=== PATIENT | female | born 1945 | race Hispanic/Latino ===

== ENCOUNTER 2017-09-10 19:56 | Emergency (ER) | payer OTHER, MEDICARE ==
[2017-09-10 20:23] LABS: Bilirubin Negative (Negative); Blood, Urine Small (Negative); Clarity Cloudy (Clear); Glucose, Urine (Dipstick) Negative (Negative); Leukocyte Moderate (Negative); Nitrite Positive (Negative); Protein, Urine (Dipstick) 30 mg/dL (Neg-Trace); Urobilinogen 0.2 mg/dL (0.2-1.0)
[2017-09-10 20:26] LABS: Bacteria/HPF 3+ HPF (None Seen); Squamous Epithelial 0-3 HPF (0-3)
[2017-09-10] MEDS ORDERED: Acetaminophen 325 MG TAB ONE (21:10)
[2017-09-10 21:26] LABS: ALT (SGPT) 13 U/L (8-55); AST (SGOT) 16 U/L (5-34); Albumin 3.7 g/dL (3.4-4.8); Alkaline Phosphatase 78 U/L (40-150); Anion Gap 15 mmol/L (10-20); BUN (Urea Nitrogen) 18 mg/dL (9.8-20.1); Bilirubin, Total 0.7 mg/dL (0.2-1.2); Calc. Creatinine Clearance 0 mL/min (70-130); Calcium 9.6 mg/dL (7.8-10.44); Carbon Dioxide 22 mmol/L (23-31); Chloride 105 mmol/L (98-107); Estimated GFR-MDRD 39; Globulin 3.8 g/dL (2.4-3.5); Glucose 116 mg/dL (83-110); Potassium 3.5 mmol/L (3.5-5.1); Protein, Total 7.5 g/dL (6.0-8.3); Sodium 138 mmol/L (136-145)
--- NOTE | 2017-09-10 21:27 | RAD ---
PA AND LATERAL VIEWS CHEST: 09/10/17 HISTORY: Cough, fever, generalized weakness. FINDINGS: The heart is enlarged. The lungs are well expanded with mild pulmonary vascular congestion. No pneumo thoraces or large effusions are seen. IMPRESSION: Findings are suspicious for mild CHF. POS: [facility]
[2017-09-10 21:32] LABS: Band 6 % (5-11); Hemoglobin 9.9 g/dL (12.0-16.0); Lymphocytes 13 % (21-51); MDiff Complete? YES; Mean Corpuscular HGB CONC 33.2 g/dL (32.0-36.0); Mean Corpuscular Hemoglobin 26.7 pg (27.0-31.0); Mean Corpuscular Volume 80.5 fL (78.0-98.0); Monocytes 5 % (0-10); Neutrophil 76 % (42-75); PLT Morphology Comment Appears Adequate; Platelet Clumps MARKED; Platelet Count 191 thou/uL (130-400); RBC Distribution Width 12.9 % (11.5-14.5); Red Blood Cell (RBC) Count 3.69 mill/uL (4.20-5.40); White Blood Cell (WBC) Count 10.8 thou/uL (4.8-10.8)
[2017-09-10] MEDS ORDERED: Sodium Chloride 0.9% 100 ML ONE (22:03)
[2017-09-10] MEDS ORDERED: cefTRIAXone\\ROCEPHIN 2 GM VIAL ONE (22:03)
== END 2017-09-10 23:05 | disposition home or self-care (01) ==
LOC: SCSER 19:56
DX: N39.0 Urinary tract infection, site not specified (principal); D64.9 Anemia, unspecified; J30.2 Other seasonal allergic rhinitis; I10 Essential (primary) hypertension; F41.9 Anxiety disorder, unspecified; Z79.899 Other long term (current) drug therapy; Z79.891 Long term (current) use of opiate analgesic
CPT/HCPCS: 36415; 71046; 80053; 81003; 81015; 83605; 85025; 87040; 87077; 87086; 87149; 87186; 96361; 96365; J0696; J7050

== ENCOUNTER 2018-10-05 08:31 | Outpatient (CLI) | payer OTHER, MEDICARE ==
--- NOTE | 2018-10-05 10:55 | CT ---
ABDOMEN AND PELVIC CT SCAN WITH AND WITHOUT IV CONTRAST: HISTORY: Hematuria, prior hysterectomy, the patient indicates her bladder has fallen. FINDINGS: The lung bases are clear. Minimal nonspecific pleural-based parenchymal changes in the right base. Liver, gallbladder, pancreas, spleen, and adrenal glands are unremarkable. There are bilateral renal parapelvic cysts. No evidence for a solid enhancing mass. No renal calculus or acute obstructio n. No CT evidence for acute appendicitis. Sigmoid colon diverticulosis without acute diverticulitis . Somewhat low-lying urinary bladder. IMPRESSION: Bilateral renal parapelvic cysts. No renal calculus or obstruction. Other findings as above. POS: [facility]
== END 2018-10-05 08:32 | disposition home or self-care (01) ==
LOC: BICCT 08:31
PROVIDERS: ATTEND Urology
DX: N39.0 Urinary tract infection, site not specified (principal); R31.29 Other microscopic hematuria; N28.1 Cyst of kidney, acquired; K57.30 Diverticulosis of large intestine without perforation or abscess without bleeding; N32.89 Other specified disorders of bladder
CPT/HCPCS: 36415; 74178; 80048; 81001; 82565; 87086

== ENCOUNTER 2019-08-17 06:35 | Outpatient (CLI) | payer OTHER, MEDICARE ==
[2019-08-17 14:17] LABS: Hemoglobin 11.3 g/dL (12.0-16.0); Mean Corpuscular HGB CONC 31.8 g/dL (32.0-36.0); Mean Corpuscular Volume 84.8 fL (78.0-98.0); Mean Platelet Volume 9.2 fL (7.4-10.4); Platelet Count 149 thou/uL (130-400); RBC Distribution Width 14.4 % (11.5-14.5); Red Blood Cell (RBC) Count 4.18 mill/uL (4.20-5.40); White Blood Cell (WBC) Count 3.6 thou/uL (4.8-10.8)
[2019-08-17 14:20] LABS: Anion Gap 13 mmol/L (10-20); BUN (Urea Nitrogen) 20 mg/dL (9.8-20.1); Calc. Creatinine Clearance 0 mL/min (70-130); Carbon Dioxide 23 mmol/L (23-31); Chloride 108 mmol/L (98-107); Estimated GFR-MDRD 36; Glucose 91 mg/dL (83-110); Potassium 3.5 mmol/L (3.5-5.1); Sodium 140 mmol/L (136-145)
[2019-08-17 14:25] LABS: Calcium 12.2 mg/dL (7.8-10.44)
[2019-08-17 14:26] LABS: Band 20 % (5-11); Lymphocytes 14 % (21-51); MDiff Complete? YES; Monocytes 6 % (0-10); Neutrophil 59 % (42-75); Platelet Morphology Comment Appears Adequate; Polychromasia SLIGHT = 2-3 cells (100X) (0-2/hpf)
--- NOTE | 2019-08-17 15:46 | RAD ---
FRONTAL AND LATERAL IMAGING OF THE CHEST: 08/17/19 COMPARISON: 06/05/19. HISTORY: Preoperative patient. FINDINGS: Stable hilar prominence noted on the left. There is stable increased linear interstitial density bila terally. There is elevation of the left hemidiaphragm. No lobar consolidation or alveolar edema. Mild nonspecific asymmetric increased linear density noted in the inferior lateral aspect of the left low er lobe. IMPRESSION: No significant interval change. No lobar consolidation, or alveolar edema. Linear density in the left base noted which could represent scar or volume loss versus mild infiltrate. The chest is better ass essed on recent PET scan performed 08/09/19. POS: [facility]
[2019-08-18 17:20] LABS: SARS-CoV-2 MS2 Positive; SARS-CoV-2 N Gene Negative; SARS-CoV-2 S Gene Negative; SARS-CoV-2 orf1ab Negative
== END 2019-08-17 06:36 | disposition home or self-care (01) ==
LOC: LABBT 06:35
PROVIDERS: ATTEND Specialist
DX: Z01.818 Encounter for other preprocedural examination (principal); Z11.59 Encounter for screening for other viral diseases; C85.11 Unspecified B-cell lymphoma, lymph nodes of head, face, and neck
CPT/HCPCS: 71046; 80048; 85025; 87635; U0003

== ENCOUNTER 2019-08-20 10:25 | Day surgery (SDC) | payer OTHER, MEDICARE ==
[2019-08-17 11:52] VITALS: BMI 24.9
[2019-08-20] MEDS ORDERED: Bupivacaine 0.25% HCL 30 ML VIAL ONE ×2 (11:51→13:05)
[2019-08-20] MEDS ORDERED: Lidocaine 1% w/Epinephrine 1:100K 20 ML VIAL ONE ×2 (11:51→13:05)
[2019-08-20] MEDS ORDERED: Lidocaine 1% PF 5 ML VIAL ONE (12:15)
[2019-08-20] MEDS ORDERED: EPHEDRINE 25 MG/5 ML SYRINGE ONE (12:15)
[2019-08-20] MEDS ORDERED: PHENYLEPHRINE-NS 100 MCG/ML 10 ML SYRINGE ONE (12:15)
[2019-08-20] MEDS ORDERED: PROPOFOL 200 MG/20 ML VIAL ONE (12:16)
[2019-08-20] MEDS ORDERED: Fentanyl 100 MCG/2 ML VIAL ONE (12:56)
[2019-08-20] MEDS ORDERED: PROPOFOL 0 ML ONE (12:56)
--- NOTE | 2019-08-20 14:20 | RAD ---
PORTABLE CHEST 1 VIEW: Date: 08/20/2019 Time: 1333 hours HISTORY: MediPort placement. COMPARISON: 08/17/2019. FINDINGS: Interval placement of right-sided Port-A-Cath is seen with tip in the projection of SVC. No pneumotho rax seen. There is continued elevation of the left hemidiaphragm. The heart size is stable. POS: [facility]
--- NOTE | 2019-08-21 10:57 | OP ---
DATE OF PROCEDURE: 08/20/2019 PREOPERATIVE DIAGNOSIS: Lymphoma. POSTOPERATIVE DIAGNOSIS: Lymphoma. PROCEDURE PERFORMED: Placement of right subclavian standard-sized power compatible MediPort. ANESTHESIA: Total intravenous anesthesia with local using a mixture of 1% lidocaine with epinephrine and 0.25% Marcaine. INDICATIONS: The patient is a 73-year-old female, who is referred for MediPort placement for chemotherapy administration. She has diffuse lymphoma. DESCRIPTION OF OPERATION: Informed consent was obtained. The patient was taken to the operating room where total intravenous anesthesia was obtained with the patient in supine position. Right periclavicular area was prepped with ChloraPrep and draped in sterile fashion. Local anesthetic was infiltrated and a large-gauge needle was passed under the clavicle in the subclavian vein. Guidewire was passed through the needle and fluoroscopically confirmed to enter the superior vena cava. Additional local anesthetic was infiltrated and transverse incision was created based on needle insertion site. A subcutaneous pocket was dissected inferiorly. Introducer dilator was passed over the guidewire under fluoroscopic guidance. The guidewire and dilator were removed, and the catheter was passed through the introducer. The tip of the catheter was positioned at the atriocaval junction and the catheter was trimmed to the appropriate length and secured to the locking hub of the MediPort. The port was then placed in the subcutaneous pocket where it was secured to the pectoral fascia with 2 interrupted sutures of 3-0 Prolene. The incision was then closed in layers with 3-0 and 4-0 Monocryl. Additional local anesthetic was infiltrated. The port was cannulated with a Mooney needle and it aspirated blood freely and was flushed with heparinized saline. Dermabond was placed externally on the skin incision. There were no complications. Blood loss was negligible. The patient tolerated the procedure well and was taken to recovery room in stable condition. FINDINGS: I placed a standard size power compatible MediPort in the right subclavian vein uneventfully. The port site was chosen secondary to her body habitus. There were no complications and essentially no blood loss. Fluoroscopy was used throughout the procedure. The patient tolerated the procedure well and was taken to recovery room in stable condition. Job ID: [id number]
== END 2019-08-20 15:02 | disposition home or self-care (01) ==
LOC: SDC 10:25
PROVIDERS: ATTEND Specialist
PROC: B518ZZA Fluoroscopy of Superior Vena Cava, Guidance (ICD-10-PCS; principal; 2019-08-20)
PROC: 02HV33Z Insertion of Infusion Device into Superior Vena Cava, Percutaneous Approach (ICD-10-PCS; principal; 2019-08-20)
PROC: 0JH60WZ Insertion of Totally Implantable Vascular Access Device into Chest Subcutaneous Tissue and Fascia, Open Approach (ICD-10-PCS; principal; 2019-08-20)
DX: C85.11 Unspecified B-cell lymphoma, lymph nodes of head, face, and neck (principal); I10 Essential (primary) hypertension; Z79.899 Other long term (current) drug therapy
CPT/HCPCS: 36416; 71045; C1788; J0690; J1642; J2001; J2704; J3010; S0020

== ENCOUNTER 2019-08-31 12:16 | Inpatient (IN) | payer OTHER, MEDICARE ==
[2019-08-31 13:46] VITALS: BMI 24.3
[2019-08-31] MEDS ORDERED: Ondansetron ODT 8 MG TAB PO PRN (15:09)
[2019-08-31] MEDS ORDERED: Acetaminophen 325 MG TAB PO PRN (15:34)
[2019-08-31] MEDS ORDERED: Loratadine 10 MG TAB PO PRN (15:45)
[2019-08-31 15:52] LABS: Mean Corpuscular HGB CONC 33.6 g/dL (32.0-36.0); Mean Corpuscular Hemoglobin 27.8 pg (27.0-31.0); Mean Corpuscular Volume 82.8 fL (78.0-98.0); Mean Platelet Volume 10.2 fL (7.4-10.4); Platelet Count 39 thou/uL (130-400); RBC Distribution Width 14.2 % (11.5-14.5); White Blood Cell (WBC) Count 0.1 thou/uL (4.8-10.8)
[2019-08-31 15:53] LABS: Prothrombin Time 22.9 sec (12.0-14.7)
[2019-08-31 16:06] LABS: Calcium 8.3 mg/dL (7.8-10.44)
[2019-08-31 16:09] LABS: ALT (SGPT) 43 U/L (8-55); AST (SGOT) 25 U/L (5-34); Albumin 2.9 g/dL (3.4-4.8); Alkaline Phosphatase 72 U/L (40-110); Anion Gap 8 mmol/L (10-20); BUN (Urea Nitrogen) 13 mg/dL (9.8-20.1); Calc. Creatinine Clearance 63 mL/min (70-130); Calcium 8.3 mg/dL (7.8-10.44); Carbon Dioxide 28 mmol/L (23-31); Chloride 104 mmol/L (98-107); Estimated GFR-MDRD 70; Globulin 2.7 g/dL (2.4-3.5); Glucose 118 mg/dL (83-110); Potassium 3.2 mmol/L (3.5-5.1); Protein, Total 5.6 g/dL (6.0-8.3); Sodium 137 mmol/L (136-145); Uric Acid 3.4 mg/dL (2.6-6.0)
[2019-08-31 16:11] LABS: MDiff Complete? YES; Ovalocytes SLIGHT = 2-5 cells (100X) (0-1/hpf); Platelet Morphology Comment Appears Decreased; Polychromasia SLIGHT = 2-3 cells (100X) (0-2/hpf)
--- NOTE | 2019-08-31 16:12 | PDOC.HHP ---
Hospitalist HPI - History of Present Illness fever and neutropenia in clinic History of Present Illness: Ms. 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 Received chemotherapy this past Tuesday. Had fevers over the weekend, came to clinic, and reportedy had UA consistent with UTI. Started on Cipro and completed three days. Followed up in clinic this morning, was found to be neutropenic and 100.8F so was directly admitted. On encounter, laying comfortably in bed and complains of abdominal pain that she thinks is because of antibiotics. Also endorses ulceration in mouth. Denies neck stiffness, headache, dysphagia, odynophagia, ocular drainage, rhinorrhea, facial pain, chest pain, pleuritic pain, cough, diarrhea, dysuria, hematuria. Hospitalist ROS - Review of Systems Constitutional: reports: weakness, malaise. denies: fever, chills, sweats Eyes: denies: pain, conjunctivae inflammation, eyelid inflammation, redness ENT: denies: ear pain, ear discharge, nose pain, nose discharge, nose congestion , mouth pain, mouth swelling, throat pain, throat swelling Respiratory: denies: cough, shortness of breath, pleuritic pain Cardiovascular: denies: chest pain, palpitations Gastrointestinal: reports: nausea, abdominal pain. denies: vomiting, diarrhea, melena, hematochezia Genitourinary: denies: dysuria, frequency, incontinence, hematuria Skin: denies: rash, lesions Hospitalist History - Past Medical History Source: patient, family Cardiac: reports: no pertinent history Pulmonary: reports: hypertension CHAIN SPLITTER: reports: no pertinent history Gastrointestinal: reports: no pertinent history Heme/Onc: reports: no pertinent history Hepatobiliary: reports: no pertinent history Psych: reports: no pertinent history Infectious Disease: reports: Other (recurrent UTIs) ENT: reports: no pertinent history Renal/: reports: UTI - Past Surgical History Past Surgical History: reports: Cystoscopy, Hysterectomy - Family History Family History: reports: no pertinent history - Social History Smoking Status: Never smoker Alcohol: reports: None Drugs: reports: none Living Situation: With Family Domestic Violence: Negative Activity level: independent ambulation - Exam General Appearance: NAD, awake alert Eye: PERRL, anicteric sclera ENT - other findings: mulitple oral ulcerations Neck: no JVD Heart: no murmur, no gallops Heart - other findings: regular rhythm, tachycardic; mediport right side thorax , noninfected Respiratory: CTAB, no wheezes, no rales, no ronchi Gastrointestinal: soft, non-tender, non-distended, normal bowel sounds Extremities: no edema Neurological: cranial nerve grossly intact, normal sensation to touch, no weakness, no focal deficits, no new deficit Psychiatric: normal affect, normal behavior, A&O x 3 Hospitalist Results - Labs Result Diagrams: 08/31/19 15:38 08/31/19 15:38 Lab results: WBC 0.1 thou/uL (4.8-10.8) L* 08/31/19 15:38 Hgb 10.0 g/dL (12.0-16.0) L 08/31/19 15:38 Hct 29.8 % (36.0-47.0) L 08/31/19 15:38 MCV 82.8 fL (78.0-98.0) 08/31/19 15:38 Plt Count 39 thou/uL (130-400) L 08/31/19 15:38 Hospitalist H&P A/P - Problem (1) Neutropenic fever Code(s): D70.9 - NEUTROPENIA, UNSPECIFIED; R50.81 - FEVER PRESENTING WITH CONDITIONS CLASSIFIED ELSEWHERE Status: Acute (2) 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 Code(s): C83.31 - DIFFUSE LARGE B-CELL LYMPHOMA, NODES OF HEAD, FACE, AND NECK Status: Acute - Plan Plan: #neutropenic fever #mucositis -patient recently diagnosed with large B cell lymphoma -chemotherapy this past tuesday cytoxan, vincristine, adramycin, vatuxin -Tmax 100.8, given cefepime x 1 in clinic -recent urinalysis in clinic c/w UTI, completed cipro prior to presentation -lymphoma can cause fever, lymphoma lysis can cause fever, treatment with abovementioned can cause fever and mucositis associated with fever -mediport noninfected; no symtpoms of infection -neutorpenic isolation -continue cefepime -urinalysis considering recent reported UTI and history of recurrent UTIs -procalcitonin #HTN -continue home regimen -IV antiHTN PRN #history of DVT -continue warfarin Disposition/PPx full code. GI PPx: no indicated DVT PPx: lovenox
[2019-08-31 16:13] LABS: Phosphorus 1.4 mg/dL (2.3-4.7)
[2019-08-31] MEDS ORDERED: Potassium Phosphate 30 MMOL in Sodium Chloride 0.9% 500 ML IVPB SCH (16:30)
[2019-08-31] MEDS ORDERED: Potassium Chloride 40 MEQ in Sodium Chloride 0.9% 250 ML 250 ML IVPB SCH ×3 (16:30→23:00)
[2019-08-31] MEDS: Sodium Chloride 0.9% 1,000 ML IV SCH (16:43)
[2019-08-31] MEDS ORDERED: hydrALAZINE 20 MG/ML VIAL SLOW IVP PRN (16:52)
[2019-08-31] MEDS ORDERED: Labetalol HCl 100 MG/20 ML VIAL SLOW IVP PRN (16:52)
[2019-08-31] MEDS ORDERED: Warfarin Sodium 2.5 MG TAB PO SCH (17:00)
[2019-08-31] MEDS: Acetaminophen 325 MG TAB PO PRN (17:03)
[2019-08-31 20:13] LABS: Bilirubin Negative (Negative); Blood, Urine Trace (Negative); Clarity Clear (Clear); Glucose, Urine (Dipstick) 50 mg/dL (Negative); Leukocyte Negative Leu/uL (Negative); Nitrite Negative (Negative); Protein, Urine (Dipstick) 30 mg/dL (Neg-Trace); RBC/HPF 0-3 HPF (0-3); Renal Epithelial 0-3 HPF (None Seen); Urobilinogen Normal mg/dL (Less than 2); WBC/HPF 0-3 HPF (0-3)
[2019-08-31 20:35] LABS: Bacteria/HPF Rare-Few HPF (None Seen)
[2019-08-31 20:36] LABS: Urine Culture Reflex No No
[2019-08-31] MEDS: Carvedilol 25 MG TAB PO SCH (20:43)
[2019-08-31] MEDS: Cefepime 1 GM in Sodium Chloride 0.9% 100 ML IVPB SCH (23:29)
[2019-09-01] MEDS: Acetaminophen 325 MG TAB PO PRN (00:37)
[2019-09-01] MEDS: Sodium Chloride 0.9% 1,000 ML IV SCH ×2 (01:34→17:40)
[2019-09-01 06:14] LABS: Mean Corpuscular HGB CONC 32.6 g/dL (32.0-36.0); Mean Corpuscular Hemoglobin 27.1 pg (27.0-31.0); Mean Corpuscular Volume 83.2 fL (78.0-98.0); Mean Platelet Volume 10.2 fL (7.4-10.4); Platelet Count 33 thou/uL (130-400); RBC Distribution Width 14.3 % (11.5-14.5); Red Blood Cell (RBC) Count 2.96 mill/uL (4.20-5.40); White Blood Cell (WBC) Count 0.1 thou/uL (4.8-10.8)
[2019-09-01 06:19] LABS: INR-International Normal Ratio 2.1; Prothrombin Time 23.4 sec (12.0-14.7)
[2019-09-01 06:26] LABS: Platelet Morphology Comment Appears Decreased
[2019-09-01 06:35] LABS: Anion Gap 8 mmol/L (10-20); BUN (Urea Nitrogen) 12 mg/dL (9.8-20.1); Calc. Creatinine Clearance 68 mL/min (70-130); Calcium 7.4 mg/dL (7.8-10.44); Carbon Dioxide 25 mmol/L (23-31); Chloride 111 mmol/L (98-107); Estimated GFR-MDRD 77; Glucose 89 mg/dL (83-110); Potassium 3.9 mmol/L (3.5-5.1); Sodium 140 mmol/L (136-145)
[2019-09-01 06:37] LABS: Phosphorus 2.1 mg/dL (2.3-4.7)
[2019-09-01] MEDS ORDERED: predniSONE 50 MG TAB PO SCH (08:00)
[2019-09-01] MEDS: ALPRAZolam 0.25 MG TAB PO PRN (08:22)
[2019-09-01] MEDS: Aluminum & Magnesium Hydroxide 60 ML, Lidocaine 2% Viscous Solution 30 ML, diphenhydrAM... SSW PRN ×3 (08:22→17:42)
[2019-09-01] MEDS: Allopurinol 300 MG TAB PO SCH (08:46)
[2019-09-01] MEDS: Carvedilol 25 MG TAB PO SCH ×2 (08:46→21:20)
[2019-09-01] MEDS: Losartan 25 MG TAB PO SCH (08:47)
[2019-09-01] MEDS ORDERED: Enoxaparin Sodium 30 MG/0.3 ML SYRINGE SC SCH (09:00)
[2019-09-01] MEDS ORDERED: Prevnar 13-Val Conj/PF 0.5 ML SYRINGE IM ONE (09:00)
[2019-09-01] MEDS: Cefepime 1 GM in Sodium Chloride 0.9% 100 ML IVPB SCH ×2 (11:06→23:17)
--- NOTE | 2019-09-01 13:32 | PDOC.HOSPP ---
- Subjective Encounter Date: 09/01/19 Encounter Time: 07:00 Subjective: Pt seen for followup re: febrile neutropenia. Pt feels slightly better. - Objective Vital Signs & Weight: Vital Signs (12 hours) Temp Pulse Resp BP BP Pulse Ox 09/01/19 11:36 98.6 F 89 18 137/63 95 09/01/19 08:00 95 09/01/19 07:58 98.3 F 80 18 165/70 H 95 09/01/19 04:00 98.5 F 90 18 158/70 H 18 L Weight Weight 142 lb 1.6 oz I&O: 08/31/19 09/01/19 09/02/19 06:59 06:59 06:59 Intake Total 340 Output Total 725 Balance -385 Result Diagrams: 09/01/19 06:00 09/01/19 06:00 Additional Labs: Labs and MARs reviewed by wy Hospitalist ROS - Review of Systems Cardiovascular: denies: chest pain, palpitations, orthopnea, paroxysmal noc. dyspnea, edema, light headedness Gastrointestinal: denies: nausea, vomiting, abdominal pain, diarrhea, constipation, melena, hematochezia - Medication Medications: Active Medications Generic Name Dose Route Start Last Admin Trade Name Freq PRN Reason Stop Dose Admin Acetaminophen 650 mg 08/31/19 15:02 09/01/19 00:37 Tylenol PO 650 mg Q4H PRN Administration Headache/Fever/Mild Pain (1-3) Allopurinol 300 mg 09/01/19 09:00 09/01/19 08:46 Zyloprim PO 300 mg DAILY DOLLY Administration Alprazolam 0.25 mg 08/31/19 15:09 09/01/19 08:22 Xanax PO 0.25 mg TIDPRN PRN Administration Anxiety Carvedilol 25 mg 08/31/19 21:00 09/01/19 08:46 Coreg PO 25 mg BID DOLLY Administration Al Hydroxide/Mg Hydroxide 60 0 ml 08/31/19 16:33 09/01/19 11:51 ml/ Lidocaine HCl 30 ml/ SSW 10 ml Diphenhydramine HCl 75 mg PRN PRN Administration Mouth Irritation Hyoscyamine Sulfate 0.125 mg 08/31/19 15:09 08/31/19 17:05 Levsin PO 0.125 mg Q4H PRN Administration Abdominal Cramping Sodium Chloride 1,000 mls @ 75 mls/hr 08/31/19 14:45 09/01/19 01:34 Normal Saline 0.9% IV Not Given .[id number] DOLLY Cefepime HCl 1 gm/ Sodium 100 mls @ 200 mls/hr 08/31/19 23:00 09/01/19 11:06 Chloride IVPB 100 mls 1100,2300 DOLLY Administration Losartan Potassium 100 mg 09/01/19 09:00 09/01/19 08:47 Cozaar PO 100 mg DAILY DOLLY Administration Prednisone 100 mg 09/01/19 08:00 09/01/19 08:45 Prednisone PO 100 mg QAM-WM DOLLY Administration Sodium Chloride 10 ml 09/01/19 09:00 09/01/19 11:06 Flush - Normal Saline IVF Not Given Q12HR DOLLY - Exam General Appearance: awake alert Eye: anicteric sclera ENT: moist mucosa ENT - other findings: mucositis Neck: supple Heart: RRR, no rubs Respiratory: CTAB Gastrointestinal: soft, non-tender Extremities: no clubbing Psychiatric: normal affect, normal behavior Hosp A/P - Plan - Assessment (1) Neutropenic fever Code(s): D70.9 - NEUTROPENIA, UNSPECIFIED; R50.81 - FEVER PRESENTING WITH CONDITIONS CLASSIFIED ELSEWHERE Status: Acute (2) 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
--- NOTE | 2019-09-01 20:56 | CON ---
DATE OF CONSULTATION: REASON FOR CONSULT: Neutropenic fever. HISTORY OF PRESENT ILLNESS: Ms. Pimentel is a pleasant 73-year-old female who has a high-grade B-cell lymphoma of the nasopharynx with bilateral cervical lymphadenopathy. She has activated B-cell subtype with no evidence of double hit. She completed cycle 1 of R-CHOP last Tuesday. On Tuesday, she presented to our clinic with urinary tract infection symptoms and was given Cipro. Over the course of the week, she began to have stomach pain, weight loss, and developed fever. She presented to our clinic on Tuesday for re-evaluation and appeared weak. Her CBC showed a white count of 0.1. She was started on IV hydration and given 2 g of cefepime in the clinic and admitted for neutropenic fever. She also had oral thrush with some stomatitis. She denies diarrhea, cough, shortness of breath, or chest pain. PAST MEDICAL HISTORY: 1. 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 2. Left lower extremity DVT in May. 3. Rheumatoid arthritis. 4. Chronic anemia. 5. Hypertension. PAST SURGICAL HISTORY: 1. Hysterectomy. 2. Lymph node biopsy. ALLERGIES: NO KNOWN DRUG ALLERGIES. HOME MEDICATIONS: Fosamax, alprazolam, carvedilol, Flonase, loratadine, losartan, nystatin, sertraline, and Coumadin. FAMILY HISTORY: Daughter has a history of cervical cancer. SOCIAL HISTORY: She is , has 4 children. Lives with her spouse. No alcohol, tobacco, or illicit drug use. REVIEW OF SYSTEMS: A 10-point review of systems is negative except for noted in HPI. PHYSICAL EXAMINATION: VITAL SIGNS: Temperature 98.6, pulse 89, respiratory rate 18, BP is 137/63. She is 95% on room air. GENERAL: This is a well-developed, well-nourished female, in no acute distress. HEENT: Normocephalic, atraumatic. Pupils are equal and reactive to light. She has thrush on her tongue and sores in her buccal cavity. NECK: Supple. CV: Regular rate and rhythm. LUNGS: Clear. ABDOMEN: Soft and nontender. Bowel sounds are positive. EXTREMITIES: No clubbing or cyanosis. SKIN: No rash. HEMATOLOGICAL: No petechiae or purpura. NEUROLOGICAL: Nonfocal. PERTINENT LABORATORY DATA AND X-RAYS: Current WBCs are 0.1, hemoglobin 8.0, hematocrit 24.6, platelet count is 33,000. PT is 23.4, INR is 2.1. Sodium is 140, potassium 3.9, chloride 111, CO2 is 25, BUN is 12, creatinine 0.74, calcium 7.4, bilirubin is 1, AST is 25, ALT is 43, alkaline phosphatase is 72. Serum total protein is 5.6, albumin 2.9, globulin 2.7. Urine showed rare bacteria. ASSESSMENT: 1. Neutropenic fever, likely from prior urinary tract infection. 2. High-grade B-cell lymphoma, status post cycle 1 of R-CHOP chemotherapy with Neulasta support. 3. Thrush. 4. History of deep venous thrombosis. 5. Thrombocytopenia secondary to chemo. DISCUSSION: The patient has been started on IV antibiotics, IV fluids, and nystatin medication. She is also receiving Magic mouthwash. She feels significantly better today. She has just rare stomach pain and is now ambulating in the hallway. Her white count has remained low. She did receive Neulasta. I expect it to begin to rise in the next 24 hours. Her platelet count is 33,000. We will hold her Coumadin today and resume tomorrow as her platelets will hopefully be over 40,000. If she is significantly improved with the trending upward of her labs, she can be discharged home to be followed up in the clinic next week. Appreciate Sounds assistance with medical management. Thank you for the consult. Job ID: [id number]
[2019-09-02 06:07] LABS: INR-International Normal Ratio 1.6; Prothrombin Time 18.7 sec (12.0-14.7)
[2019-09-02] MEDS: Aluminum & Magnesium Hydroxide 60 ML, Lidocaine 2% Viscous Solution 30 ML, diphenhydrAM... SSW PRN ×3 (07:19→16:56)
[2019-09-02] MEDS: ALPRAZolam 0.25 MG TAB PO PRN (07:19)
[2019-09-02] MEDS: Allopurinol 300 MG TAB PO SCH (08:35)
[2019-09-02] MEDS: Carvedilol 25 MG TAB PO SCH ×2 (08:35→20:37)
[2019-09-02] MEDS: Losartan 25 MG TAB PO SCH (08:35)
[2019-09-02] MEDS: Sodium Chloride 0.9% 1,000 ML IV SCH ×2 (08:38→20:39)
[2019-09-02] MEDS ORDERED: Bisacodyl 5 MG TAB PO SCH (09:15)
[2019-09-02] MEDS ORDERED: Docusate 100 MG CAP PO SCH (09:15)
[2019-09-02 09:26] LABS: Band 15 % (5-11); Hemoglobin 8.1 g/dL (12.0-16.0); Lymphocytes 9 % (21-51); MDiff Complete? YES; Mean Corpuscular HGB CONC 32.8 g/dL (32.0-36.0); Mean Corpuscular Hemoglobin 27.7 pg (27.0-31.0); Mean Corpuscular Volume 84.5 fL (78.0-98.0); Mean Platelet Volume 9.6 fL (7.4-10.4); Monocytes 18 % (0-10); Neutrophil 55 % (42-75); Nucleated RBC 1 % (0); Platelet Count 40 thou/uL (130-400); Platelet Morphology Comment Appears Decreased; RBC Distribution Width 14.1 % (11.5-14.5); Reactive Lymphocytes 3 % (0-10); Red Blood Cell (RBC) Count 2.91 mill/uL (4.20-5.40); White Blood Cell (WBC) Count 0.6 thou/uL (4.8-10.8)
[2019-09-02] MEDS: Multivit, Therapeutic 1 TAB PO SCH (09:32)
--- NOTE | 2019-09-02 10:56 | PDOC.HOSPP ---
- Subjective Encounter Date: 09/02/19 Encounter Time: 07:00 Subjective: Pt een for followup for neutropenic fever. No cough or urinary symptoms. - Objective Vital Signs & Weight: Vital Signs (12 hours) Temp Pulse Resp BP Pulse Ox 09/02/19 08:00 97 09/02/19 07:37 98.0 F 89 18 167/71 H 97 Weight Weight 142 lb 1.6 oz I&O: 09/01/19 09/02/19 09/03/19 06:59 06:59 06:59 Intake Total 340 1500 Output Total 725 600 Balance -385 900 Result Diagrams: 09/02/19 07:08 09/01/19 06:00 Additional Labs: Labs and MARs reviewed by pa Hospitalist ROS - Review of Systems Constitutional: denies: fever, chills, sweats, weakness, malaise Respiratory: denies: cough, shortness of breath, SOB with excertion, pleuritic pain Genitourinary: denies: dysuria, frequency, incontinence, hematuria Skin: denies: rash, lesions, willy, bruising - Medication Medications: Active Medications Generic Name Dose Route Start Last Admin Trade Name Freq PRN Reason Stop Dose Admin Acetaminophen 650 mg 08/31/19 15:02 09/01/19 00:37 Tylenol PO 650 mg Q4H PRN Administration Headache/Fever/Mild Pain (1-3) Allopurinol 300 mg 09/01/19 09:00 09/02/19 08:35 Zyloprim PO 300 mg DAILY DOLLY Administration Alprazolam 0.25 mg 08/31/19 15:09 09/02/19 07:19 Xanax PO 0.25 mg TIDPRN PRN Administration Anxiety Bisacodyl 10 mg 09/02/19 09:15 09/02/19 09:32 Dulcolax PO 09/02/19 12:00 10 mg NOW DOLLY Administration Carvedilol 25 mg 08/31/19 21:00 09/02/19 08:35 Coreg PO 25 mg BID DOLLY Administration Al Hydroxide/Mg Hydroxide 60 0 ml 08/31/19 16:33 09/02/19 07:19 ml/ Lidocaine HCl 30 ml/ SSW 10 ml Diphenhydramine HCl 75 mg PRN PRN Administration Mouth Irritation Docusate Sodium 100 mg 09/02/19 09:15 09/02/19 09:32 Colace PO 09/02/19 11:15 100 mg NOW DOLLY Administration Hyoscyamine Sulfate 0.125 mg 08/31/19 15:09 08/31/19 17:05 Levsin PO 0.125 mg Q4H PRN Administration Abdominal Cramping Sodium Chloride 1,000 mls @ 75 mls/hr 08/31/19 14:45 09/02/19 08:38 Normal Saline 0.9% IV 1,000 mls .[id number] DOLLY Administration Cefepime HCl 1 gm/ Sodium 100 mls @ 200 mls/hr 08/31/19 23:00 09/01/19 23:17 Chloride IVPB 100 mls 1100,2300 DOLLY Administration Losartan Potassium 100 mg 09/01/19 09:00 09/02/19 08:35 Cozaar PO 100 mg DAILY DOLLY Administration Multivitamins 1 tab 09/02/19 09:00 09/02/19 09:32 Theragran PO 1 tab DAILY DOLLY Administration Sodium Chloride 10 ml 09/01/19 09:00 09/02/19 08:36 Flush - Normal Saline IVF Not Given Q12HR DOLLY - Exam General Appearance: awake alert Eye: anicteric sclera ENT: normocephalic atraumatic Neck: supple, no JVD Heart: RRR, normal peripheral pulses Respiratory: CTAB Gastrointestinal: soft, non-tender Extremities: no clubbing Musculoskeletal: no muscle wasting Psychiatric: normal affect, normal behavior Hosp A/P - Plan - Assessment (1) Neutropenic fever Code(s): D70.9 - NEUTROPENIA, UNSPECIFIED; R50.81 - FEVER PRESENTING WITH CONDITIONS CLASSIFIED ELSEWHERE Status: Acute (2) 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
[2019-09-02] MEDS: Cefepime 1 GM in Sodium Chloride 0.9% 100 ML IVPB SCH ×2 (11:05→22:08)
--- NOTE | 2019-09-02 11:51 | PDOC.MOPN ---
Interval History: stomach pain this am, constipation. Mouth hurts - Vital Signs Vital Signs: Vital Signs (12 hours) Temp Pulse Resp BP Pulse Ox 09/02/19 08:00 97 09/02/19 07:37 98.0 F 89 18 167/71 H 97 Weight Weight 142 lb 1.6 oz - Physical Exam General: No acute distress HEENT: Other (mucositis) Lungs: Clear to auscultation, Normal air movement Cardiovascular: Regular rate, Normal S1, Normal S2, No murmurs, Gallops, Rubs Abdomen: Normal bowel sounds, Other Extremities: No clubbing, No cyanosis, No edema, Normal pulses, No tenderness/ swelling Neurological: Normal gait, Normal speech, Strength at 5/5 X4 ext, Normal tone, Sensation intact, Cranial nerves 3-12 NL, Reflexes 2+ - Labs Result Diagrams: 09/02/19 07:08 09/01/19 06:00 Lab results: Laboratory Results - last 24 hr 09/02/19 07:08: WBC 0.6 L*, RBC 2.91 L, Hgb 8.1 L, Hct 24.6 L, MCV 84.5, MCH 27.7, MCHC 32.8, RDW 14.1, Plt Count 40 L, MPV 9.6, Neutrophils % (Manual) 55, Band Neuts % (Manual) 15 H, Lymphocytes % (Manual) 9 L, Reactive Lymphs % 3, Monocytes % (Manual) 18 H, Nucleated RBCs # (Man) 1 H, Plt Morphology Comment Appears Decreased L 09/02/19 06:00: PT 18.7 H, INR 1.6 Status: lab reviewed by me A/P - Problem (1) 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 continue nystation and MM wash 2. resume coumadin today, platelets improved 3. full liquid diet for mouth pain 4. Protonix, IVF 5. CBC in am
[2019-09-02] MEDS ORDERED: Pantoprazole 40 MG VIAL IVP SCH (12:00)
[2019-09-02] MEDS: Simethicone Chewable 80 MG TAB PO PRN (15:48)
[2019-09-02] MEDS: Warfarin Sodium 2.5 MG TAB PO SCH (17:12)
[2019-09-02] MEDS ORDERED: Simethicone Chewable 80 MG TAB PO SCH (17:15)
[2019-09-02] MEDS: Acetaminophen 325 MG TAB PO PRN (19:22)
[2019-09-02] MEDS: Docusate 100 MG CAP PO SCH (20:41)
[2019-09-03] MEDS: ALPRAZolam 0.25 MG TAB PO PRN (01:09)
[2019-09-03] MEDS: HYDROcodone/Acetaminophen 5/325 mg Tablet PO PRN ×2 (04:46→10:05)
[2019-09-03] MEDS: Simethicone Chewable 80 MG TAB PO PRN (04:53)
[2019-09-03 05:08] LABS: INR-International Normal Ratio 1.6
[2019-09-03 05:54] LABS: Band 42 % (5-11); Hemoglobin 8.3 g/dL (12.0-16.0); Lymphocytes 3 % (21-51); MDiff Complete? YES; Mean Corpuscular Hemoglobin 26.6 pg (27.0-31.0); Mean Corpuscular Volume 83.1 fL (78.0-98.0); Mean Platelet Volume 10.2 fL (7.4-10.4); Metamyelocyte 1 % (0-0); Monocytes 8 % (0-10); Neutrophil 46 % (42-75); Platelet Count 53 thou/uL (130-400); Platelet Morphology Comment Appears Decreased; RBC Distribution Width 14.1 % (11.5-14.5); Red Blood Cell (RBC) Count 3.11 mill/uL (4.20-5.40); White Blood Cell (WBC) Count 2.8 thou/uL (4.8-10.8)
[2019-09-03 08:07] VITALS: BP 147/67; TEMP 98.6
[2019-09-03] MEDS: Carvedilol 25 MG TAB PO SCH (08:13)
[2019-09-03] MEDS: Losartan 25 MG TAB PO SCH (08:13)
[2019-09-03] MEDS: Allopurinol 300 MG TAB PO SCH (08:14)
[2019-09-03] MEDS: Docusate 100 MG CAP PO SCH (08:14)
[2019-09-03] MEDS: Multivit, Therapeutic 1 TAB PO SCH (08:14)
[2019-09-03] MEDS: Aluminum & Magnesium Hydroxide 60 ML, Lidocaine 2% Viscous Solution 30 ML, diphenhydrAM... SSW PRN (08:50)
[2019-09-03] MEDS ORDERED: Pantoprazole 40 MG VIAL IVP SCH (09:00)
[2019-09-03] MEDS ORDERED: Potassium Phosphate 30 MMOL in Sodium Chloride 0.9% 250 ML 250 ML IVPB SCH (09:30)
[2019-09-03] MEDS: Cefepime 1 GM in Sodium Chloride 0.9% 100 ML IVPB SCH (11:23)
--- NOTE | 2019-09-03 14:02 | PDOC.MOPN ---
Interval History: large BM yesterday, mouth much better - Vital Signs Vital Signs: Vital Signs (12 hours) Temp Pulse Resp BP BP Pulse Ox 09/03/19 08:00 98.6 F 86 18 147/67 H 95 09/03/19 04:54 98.4 F 88 18 171/74 H 96 09/03/19 04:00 98.4 F 88 16 171/74 H 94 L Weight Weight 142 lb 1.6 oz - Physical Exam General: Alert, Oriented x3, No acute distress HEENT: Atraumatic, PERRLA, EOMI, Mucous membr. moist/pink Lungs: Clear to auscultation, Normal air movement Cardiovascular: Regular rate, Normal S1, Normal S2, No murmurs, Gallops, Rubs Abdomen: Normal bowel sounds, Soft, No tenderness, No hepatospenomegaly, No masses Skin: No rashes, No breakdown, No significant lesion Neurological: Normal gait, Normal speech, Strength at 5/5 X4 ext, Normal tone, Sensation intact, Cranial nerves 3-12 NL, Reflexes 2+ Psych/Mental Status: Mental status NL, Mood NL - Labs Result Diagrams: 09/03/19 04:52 09/01/19 06:00 Lab results: Laboratory Results - last 24 hr 09/03/19 04:52: WBC 2.8 L, RBC 3.11 L, Hgb 8.3 L, Hct 25.9 L, MCV 83.1, MCH 26.6 L, MCHC 32.0, RDW 14.1, Plt Count 53 L, MPV 10.2, Neutrophils % (Manual) 46 , Band Neuts % (Manual) 42 H, Lymphocytes % (Manual) 3 L, Monocytes % (Manual) 8 , Metamyelocytes % (Man) 1 H, Plt Morphology Comment Appears Decreased L 09/03/19 04:52: PT 19.0 H, INR 1.6 Status: lab reviewed by me A/P - Problem (1) 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 WBC and platelets improved 2. mouth pain better 3. ok to dc home and follow-up with DR. Castanon on 09/12
[2019-09-03] MEDS: Warfarin Sodium 2.5 MG TAB PO SCH (16:45)
--- NOTE | 2019-09-04 02:45 | DIS ---
DATE OF ADMISSION: 08/31/2019 DATE OF DISCHARGE: 09/03/2019 PRIMARY CARE PROVIDER: Unknown. DISCHARGE DIAGNOSES: 1. Neutropenic fever. 2. Pancytopenia. 3. Hypokalemia. CONDITION OF PATIENT ON THE DAY OF DISCHARGE: Stable. I assessed Ms. Pimentel on the day of discharge. She denies any chest pain or shortness of breath. Vital signs are stable. S1 and S2 are heard, regular. Lungs are clear to auscultation bilaterally. CONSULTATIONS DURING THIS HOSPITALIZATION: Oncology, Ms. Lexus Watson. HOSPITAL COURSE: Ms. Pimentel is a pleasant 73-year-old lady, who was admitted to [facility] on August 31, 2019, for neutropenic fever. She was seen by Oncology Service. She was treated with intravenous antibiotics. Her neutropenia resolved. She has been cleared for discharge by Oncology Service. On the day of discharge, she has INR 1.6. White count 2800, hemoglobin 8.3, and platelet count 53,000. Sodium is 140, potassium 3.9, and creatinine 0.74. Many thanks for allowing me to participate in your patient's care. Please feel free to contact me with any questions or concerns. DISCHARGE MEDICATIONS: Ciprofloxacin 500 mg 2 times a day for 3 more days. Otherwise, no change was made to her pre-admission home medications. DIET: Heart healthy. ACTIVITY: No restrictions. DISCHARGE DESTINATION: Home. TIME SPENT: Total amount of time spent in coordinating this discharge, 28 minutes. Job ID: [id number]
== END 2019-09-03 17:15 | disposition home or self-care (01) | DRG 809 ==
LOC: ONC 12:27
PROVIDERS: ADMIT Internal Medicine; ATTEND Internal Medicine
DX: D61.818 Other pancytopenia (principal); C83.31 Diffuse large B-cell lymphoma, lymph nodes of head, face, and neck; B37.0 Candidal stomatitis; D69.59 Other secondary thrombocytopenia; R50.81 Fever presenting with conditions classified elsewhere; K12.30 Oral mucositis (ulcerative), unspecified; I10 Essential (primary) hypertension; M06.9 Rheumatoid arthritis, unspecified; T45.1X5A Adverse effect of antineoplastic and immunosuppressive drugs, initial encounter; K59.00 Constipation, unspecified; E87.6 Hypokalemia; Z86.718 Personal history of other venous thrombosis and embolism; Z79.01 Long term (current) use of anticoagulants; Z90.710 Acquired absence of both cervix and uterus; Z79.899 Other long term (current) drug therapy
CPT/HCPCS: 36415; 80048; 80053; 81001; 84100; 84145; 84550; 85025; 85610; C9113; J0692; J1642; J3480; J3490; J7030; J7050; J7512; Q0163

== ENCOUNTER 2019-09-17 08:12 | Day surgery (SDC) | payer OTHER, MEDICARE ==
[2019-09-14 15:23] VITALS: BMI 23.5
[2019-09-17 08:50] LABS: INR-International Normal Ratio 0.9; Prothrombin Time 12.3 sec (12.0-14.7)
[2019-09-17] MEDS ORDERED: Methotrexate Sodium/PF 12 MG in Admixture Fee 1 EACH IV SCH (09:15)
[2019-09-17] MEDS ORDERED: Methotrexate Sodium/PF 12 MG in Sodium Chloride 0.9% 9.52 ML IV SCH (09:30)
[2019-09-17 10:32] VITALS: BP 165/92; TEMP 98.6
--- NOTE | 2019-09-17 11:27 | RAD ---
Exam: Lumbar puncture for CSF acquisition and intrathecal chemotherapy administration. HISTORY: Lymphoma Comparison none FINDINGS: 5 lumbar type vertebra. Lumbar spine vertebral body heights are maintained. No fracture. Mi ld degenerative changes throughout the lumbar spine. Successful lumbar puncture. A total of 9 cc of clear CSF was acquired. Total of 0.5 mg of methotrexat e was administered. Methotrexate was in a total of 10 cc solution. Patient tolerated the procedure well. No immediate or postprocedure complications TECHNIQUE: Consent obtained to perform a lumbar puncture for CSF acquisition and chemotherapy agent a dministration. Patient's back was evaluated. The L3-L4 level was deemed appropriate. Skin was prepped and draped in a sterile fashion. 1% lidocaine, buffered with sodium bicarbonate was used for local anesthesia. Under fluoroscopic guidance, a 22-gauge spinal needle was advanced into the CSF space. Prompt flow of clear CSF to the hub of the needle. Via a short tubing catheter, total of 9 cc of CSF was collected. Patient tolerated the procedure well. No immediate or postprocedural complications. Exposure: 0.4 minutes; 155.9 mcg/sq m IMPRESSION: Successful lumbar puncture for CSF acquisition and intrathecal contrast administration.
== END 2019-09-17 12:05 | disposition home or self-care (01) ==
LOC: CT 08:12
PROVIDERS: ATTEND Internal Medicine Hematology & Oncology
PROC: 009U3ZZ Drainage of Spinal Canal, Percutaneous Approach (ICD-10-PCS; principal; 2019-09-17)
DX: C85.90 Non-Hodgkin lymphoma, unspecified, unspecified site (principal); I10 Essential (primary) hypertension; K21.9 Gastro-esophageal reflux disease without esophagitis; M19.90 Unspecified osteoarthritis, unspecified site; D64.9 Anemia, unspecified; Z79.01 Long term (current) use of anticoagulants; Z79.899 Other long term (current) drug therapy
CPT/HCPCS: 36415; 62270; 85610; 85730; 88112; 88184; J9250

== ENCOUNTER 2019-10-08 07:00 | Day surgery (SDC) | payer OTHER, MEDICARE ==
[2019-10-05 14:06] VITALS: BMI 23.1
[2019-10-08] MEDS ORDERED: Methotrexate Sodium/PF 12 MG in Admixture Fee 1 EACH IV SCH (07:15)
[2019-10-08] MEDS ORDERED: Methotrexate Sodium/PF 12 MG in Sodium Chloride 0.9% 9.52 ML IV SCH (07:15)
[2019-10-08 07:25] LABS: INR-International Normal Ratio 0.8; Prothrombin Time 11.5 sec (12.0-14.7)
[2019-10-08 08:08] VITALS: BP 188/87; TEMP 98.3
--- NOTE | 2019-10-08 10:38 | RAD ---
FLUOROSCOPICALLY GUIDED LUMBAR PUNCTURE INTRATHECAL INJECTION OF CHEMOTHERAPEUTIC AGENT: DATE: 10/08/2019 HISTORY: 73-year-old female with B-cell lymphoma for intrathecal injection of chemotherapy. TECHNIQUE: Signed informed consent obtained. Patient placed prone on fluoroscopy table. Skin of lower back prepa red and draped in usual sterile fashion. 25-gauge needle used to apply buffered lidocaine superficially and deeply. Level selected:L2-3. Approach:midline. 22-gauge spinal needle advanced into spinal canal under brief, intermittent fluoroscopy. Upon return of CSF, 10 mL of CSF collected and placed into 4 separate vials. 12 mg of Methotrexate mixed with 9.52 (total of 10 mL) injected into intrathecal space. Spinal needle was removed. Patient tolerated procedure well. No complications. Total fluoroscopy time:1.2 minutes. Dose area product:146.9 uGy*m^2. IMPRESSION: 1. Successful lumbar puncture:10 cerebrospinal fluid sent to laboratory for analysis. 2. Successful intrathecal injection of12 mg of methotrexate.
[2019-10-08] MEDS ORDERED: Prevnar 13-Val Conj/PF 0.5 ML SYRINGE IM ONE (14:30)
== END 2019-10-08 09:50 | disposition home or self-care (01) ==
LOC: RAD 07:00
PROVIDERS: ATTEND Internal Medicine Hematology & Oncology
DX: C83.31 Diffuse large B-cell lymphoma, lymph nodes of head, face, and neck (principal); F41.9 Anxiety disorder, unspecified; F32.9 Major depressive disorder, single episode, unspecified; K21.9 Gastro-esophageal reflux disease without esophagitis; M06.9 Rheumatoid arthritis, unspecified
CPT/HCPCS: 62270; 85610; 85730; 88112; J9250

== ENCOUNTER → 2019-10-15 | Day surgery (SDC) | payer OTHER, MEDICARE ==
[~2019-10-15] MED LIST: Acetaminophen 500 MG TAB PO PRN; Sodium Chloride 0.9% 20 ML ONE; Sodium Chloride 0.9% 500 ML IV SCH; diphenhydrAMINE 25 MG CAP PO PRN
[2019-10-15 15:54] VITALS: BP 125/62; TEMP 98.9
== END ==
LOC: ONC/OP 12:33
PROVIDERS: ATTEND Internal Medicine Hematology & Oncology
PROC: 30233N1 Transfusion of Nonautologous Red Blood Cells into Peripheral Vein, Percutaneous Approach (ICD-10-PCS; principal; 2019-10-15)
DX: D64.9 Anemia, unspecified (principal); D69.6 Thrombocytopenia, unspecified
CPT/HCPCS: 36430; 86850; 86900; 86901; J1642; P9016; Q0163

== ENCOUNTER 2019-11-19 10:59 | Inpatient (IN) | payer OTHER, MEDICARE ==
[2019-11-19 12:08] VITALS: BMI 21.4
[2019-11-19] MEDS ORDERED: Ondansetron PF 4 MG/2 ML Vial IVP PRN (12:58)
[2019-11-19] MEDS ORDERED: HYDROcodone/Acetaminophen 5/325 mg Tablet PO PRN (12:58)
[2019-11-19] MEDS ORDERED: Acetaminophen 325 MG TAB PO PRN (12:58)
--- NOTE | 2019-11-19 13:20 | RAD ---
EXAM: Chest 2 views: HISTORY: Hypoxia and lymphoma COMPARISON: 08/20/2019 FINDINGS: There is an enlarged but stable cardiomediastinal silhouette. Increased interstitial lung markings a re present. There is stable elevation the left hemidiaphragm. A Mediport is unchanged in position. There is no evidence of consolidation, mass, or pleural effusion. No acute osseous abnormality. IMPRESSION: Worsening multifocal interstitial lung markings could represent an atypical infiltrate or interstitia l lung disease.
[2019-11-19 13:43] LABS: #Basophils 0.1 thou/uL (0.0-0.2); #Eosinphils 0.1 thou/uL (0.0-0.7); #Lymphocytes 2.2 thou/uL (1.20-3.40); #Monocytes 0.6 thou/uL (0.11-0.59); #Neutrophils 8.3 thou/uL (1.40-6.50); %Basophils 0.6 % (0.0-1.0); %Eosinophils 0.6 % (0.0-10.0); %Lymphocytes 19.2 % (21.0-51.0); %Monocytes 5.6 % (0.0-10.0); Hemoglobin 7.8 g/dL (12.0-16.0); Mean Corpuscular HGB CONC 32.5 g/dL (32.0-36.0); Mean Corpuscular Hemoglobin 30.8 pg (27.0-31.0); Mean Corpuscular Volume 94.8 fL (78.0-98.0); Mean Platelet Volume 8.5 fL (7.4-10.4); Platelet Count 185 thou/uL (130-400); RBC Distribution Width 16.9 % (11.5-14.5); Red Blood Cell (RBC) Count 2.54 mill/uL (4.20-5.40); White Blood Cell (WBC) Count 11.2 thou/uL (4.8-10.8)
[2019-11-19] MEDS ORDERED: Iopamidol-370 76% 500 ML 1 ML ONE (13:52)
[2019-11-19] MEDS ORDERED: Furosemide 40 MG/4 ML VIAL SLOW IVP SCH (14:00)
[2019-11-19 14:07] LABS: ALT (SGPT) 16 U/L (8-55); AST (SGOT) 22 U/L (5-34); Albumin 2.6 g/dL (3.4-4.8); Alkaline Phosphatase 114 U/L (40-110); Anion Gap 17 mmol/L (10-20); BUN (Urea Nitrogen) 21 mg/dL (9.8-20.1); Bilirubin, Total 0.7 mg/dL (0.2-1.2); Calc. Creatinine Clearance 36 mL/min (70-130); Calcium 7.4 mg/dL (7.8-10.44); Carbon Dioxide 13 mmol/L (23-31); Chloride 111 mmol/L (98-107); Estimated GFR-MDRD 42; Globulin 2.2 g/dL (2.4-3.5); Glucose 102 mg/dL (83-110); Potassium 3.4 mmol/L (3.5-5.1); Protein, Total 4.8 g/dL (6.0-8.3); Sodium 138 mmol/L (136-145)
[2019-11-19] MEDS ORDERED: Vancomycin HCl 1.25 GM in Sodium Chloride 0.9% 250 ML 250 ML IVPB SCH (14:15)
[2019-11-19 14:17] LABS: Troponin I 0.048 ng/mL (< 0.028)
--- NOTE | 2019-11-19 15:16 | HP ---
CHIEF COMPLAINT: Hypoxia, short of breath. HISTORY OF PRESENT ILLNESS: The patient is very pleasant, but unfortunate 73-year-old female, who has significant past medical histories of nasopharyngeal large B-cell lymphoma, who is status post 4 rounds of chemo on November 05, 2019. She presented to her oncologist's office today for followup. While there, she was found hypoxic and short of breath. It was reported that her oxygen was in the 70s and 80s on room air. I have discussed with her oncologist, Dr. Castanon, she thought that patient may have volume overloaded given the fact that she recently received blood transfusion. She was subsequently referred for direct admission for possible diuresis. I evaluated the patient in the oncology unit. Her blood pressure on arrival was 74/38. She was given a stat bolus and systolic went up to 80s. She is still alert and oriented x 3. The patient complained of shortness of breath, stated that has been gradually worsened for the last 3 to 4 days especially with exertions. She denies any chest pain, no fever. No recent travel history. No COVID exposure. She endorses some nonproductive cough. She denies any significant weight change. No lower extremity swelling. ALLERGIES: NO KNOWN DRUG ALLERGIES. HOME MEDICATIONS: Home medication list is not available to review at this time. PAST MEDICAL HISTORY: 1. Large B-cell lymphoma, undergoing chemotherapy. 2. Hypertension. PAST SURGICAL HISTORY: Hysterectomy. SOCIAL HISTORY: The patient lives with her . She denies any history of smoking or alcohol use. FAMILY HISTORY: Significant for sister with heart disease. REVIEW OF SYSTEMS: Complete review of systems has been assessed and discussed with the patient. Negative and positive pertinent symptoms noted in HPI. Otherwise, complete review of systems reviewed and negative. LABORATORY DATA AND IMAGING STUDY: The patient is directly admitted. No lab is available to review at this time. Stat chest x-ray showed multifocal pneumonia. I have personally reviewed. EKG: NSR with HR in 60s PHYSICAL EXAMINATION: VITAL SIGNS: Temperature is 97.5, pulse 75, respiratory rate 18, O2 saturation 95% on 2 L, blood pressure 74/38. GENERAL APPEARANCE: The patient appears to be not in acute distress. HEENT: Normocephalic, atraumatic. Mucous membranes moist. NECK: Supple. No lymphadenopathy. No JVD. CARDIOVASCULAR: Regular rate and rhythm. S1 and S2 noted. No murmur. PULMONOLOGY: Bilateral crackles appreciated at bibasilar area, expiratory wheezes appreciated. ABDOMEN: Soft, nontender, nondistended. Positive bowel sounds. EXTREMITIES: No edema. NEUROLOGY: Cranial nerves II through XII grossly intact. No focal weakness. PSYCHIATRIC: The patient alert and oriented x3 with normal affect. ASSESSMENT AND PLAN: This is an unfortunate 73-year-old female, who has significant past medical history of nasopharyngeal large B-cell lymphoma, undergoing chemotherapy, who was sent from the oncology office for hypoxia. Upon arrival, she was found hypotensive with a blood pressure of 74/38. She was given a stat normal saline bolus. Her blood pressures went up to the 80s. 1. Acute hypoxic respiratory failure. Chest x-ray shows multifocal pneumonia. However, this could be due to volume given history of recent blood transfusion. Unfortunately, the patient is directly admitted and no lab is available to review. We will check BNP, stat labs, blood cultures. We will start her on empiric IV antibiotics for possible pneumonia. We will transfer the patient to [facility] for higher level of care. We will obtain CTA to further assess her lung venegas and rule out PE. We will monitor her blood pressure closely. Check 2D echo to assess her LV function. 1. Hypotension, need to rule out sepsis, especially with chest x-ray showing multifocal pneumonia. Her lab is not available at this time. We will follow her CBC. The patient was given a liter of bolus. Her blood pressure went up slightly. The patient will need to transfer to step-down unit for close monitor. She may need vasopressor support. The patient has been started on broad-spectrum IV antibiotics, and blood culture has been obtained. Follow echo. 2. Multifocal pneumonia on chest x-ray. It is unclear whether there is infectious etiology versus pulmonary edema. We will check CTA to rule out PE as well as to assess her lung venegas. The patient will be covered with broad-spectrum IV antibiotic to cover for possible hospital-associated pneumonia. Follow culture. Breathing treatments. 3. Large B-cell lymphoma, undergoing chemotherapy with Dr. Castanon. We will consult her for further management. 4. Deep venous thrombosis prophylaxis. We will start her on Lovenox. 5. Gastrointestinal prophylaxis. IV Pepcid. CODE STATUS: I have discussed code status with the patient and her family, she is full code per her request. Thank you for allowing us to participate in this patient's care. Job ID: [id number] MTDD
--- NOTE | 2019-11-19 15:46 | CT ---
CT ANGIOGRAM THORAX WITH IV CONTRAST AND 3-D RECONSTRUCTIONS CLINICAL INDICATION: Hypoxia, hypotension, history of B-cell lymphoma. COMPARISON: 07/12/2019 FINDINGS: Pulmonary arteries: No filling defects are seen in the pulmonary arteries to suggest a pulmonary embo viridiana. Aorta: Scattered vascular calcifications are seen in the thoracic aorta. The thoracic aorta is normal in caliber without evidence of an aortic dissection. Lungs: There are scattered areas of interstitial thickening as well as groundglass opacities. Similar finding was seen on the prior exam, but findings on today's examination are increased. No parenchymal consolidation or pleural fluid is seen. Mediastinum: A right subclavian Mediport catheter remains in place. Calcified mediastinal and hilar l ymph nodes are identified. Previously seen enlarged mediastinal lymph nodes as well as infraclavicular lymphadenopathy has resolved. There is a mildly enlarged left paratracheal lymph node in the superior mediastinum measuring 1 cm in short axis dimension which is considerably decreased in size previously measuring 2.6 cm in short axis dimension. The heart is mildly enlarged. Small hiat al hernia is present. Thyroid gland: Normal CT appearance. Osseous structures: No suspicious lytic or sclerotic osseous lesion.. Chest wall: No abnormality visualized. Upper abdomen: Within normal limits for phase of imaging. IMPRESSION: 1. No CT evidence of a pulmonary embolus. 2. Mild cardiomegaly. 3. Areas of interstitial thickening and groundglass opacities seen throughout the lungs diffusely whi ch has increased from prior exam. Findings could be related to pneumonitis. 4. Previously seen mediastinal lymphadenopathy has resolved. There has been considerable decrease in size of a large superior mediastinal lymph node as described above. No additional or new enlarged lymph nodes are seen..
[2019-11-19] MEDS: Cefepime 1 GM in Sodium Chloride 0.9% 100 ML IVPB SCH (15:50)
[2019-11-19] MEDS ORDERED: Loratadine 10 MG TAB PO PRN (16:19)
[2019-11-19] MEDS ORDERED: Nystatin 500,000 UNITS/5 ML UDCUP PO PRN (16:19)
[2019-11-19] MEDS ORDERED: Pantoprazole 40 MG GRANULES PACKET PO PRN (16:19)
[2019-11-19 17:08] LABS: Bilirubin Negative (Negative); Blood, Urine Trace (Negative); Clarity Turbid (Clear); Glucose, Urine (Dipstick) Normal (Negative); Ketone, Urine Negative (Negative); Leukocyte 500 Leu/uL (Negative); Nitrite Negative (Negative); Protein, Urine (Dipstick) 10 mg/dL (Neg-Trace); Specific Gravity, Urine 1.018 (1.002-1.036); Squamous Epithelial 0-3 HPF (0-3); Urobilinogen Normal mg/dL (Less than 2); WBC/HPF Greater than 50 HPF (0-3); pH, Urine 5.5 (5.0-9.0)
[2019-11-19 17:09] LABS: Bacteria/HPF 1+ HPF (None Seen)
[2019-11-19 17:57] LABS: Troponin I 0.038 ng/mL (< 0.028)
[2019-11-19] MEDS ORDERED: Norepinephrine 8 MG/0.9% NS 250 ML IVPB SCH (18:15)
[2019-11-19] MEDS ORDERED: Albumin 25% 25 GM/100 ML BOT IVPB SCH (18:15)
[2019-11-19] MEDS: Budesonide 0.5 MG/2 ML NEB INH SCH (20:02)
[2019-11-19] MEDS: methylPREDNISolone Sod Succ 40 MG VIAL IVP SCH (20:30)
[2019-11-19] MEDS ORDERED: Famotidine/PF 20 mg/2ml Vial SLOW IVP SCH (21:00)
[2019-11-20] MEDS: Albumin 25% 25 GM/100 ML BOT IVPB SCH ×3 (00:56→12:18)
[2019-11-20] MEDS: Cefepime 1 GM in Sodium Chloride 0.9% 100 ML IVPB SCH ×2 (01:01→16:59)
[2019-11-20 08:20] LABS: Hemoglobin 6.1 g/dL (12.0-16.0); Mean Corpuscular HGB CONC 32.5 g/dL (32.0-36.0); Mean Corpuscular Hemoglobin 30.8 pg (27.0-31.0); Mean Corpuscular Volume 94.8 fL (78.0-98.0); Mean Platelet Volume 7.5 fL (7.4-10.4); Platelet Count 134 thou/uL (130-400); RBC Distribution Width 16.5 % (11.5-14.5); Red Blood Cell (RBC) Count 1.97 mill/uL (4.20-5.40); White Blood Cell (WBC) Count 4.9 thou/uL (4.8-10.8)
[2019-11-20 08:38] LABS: Anion Gap 16 mmol/L (10-20); BUN (Urea Nitrogen) 19 mg/dL (9.8-20.1); Calc. Creatinine Clearance 46 mL/min (70-130); Calcium 7.9 mg/dL (7.8-10.44); Carbon Dioxide 16 mmol/L (23-31); Chloride 113 mmol/L (98-107); Estimated GFR-MDRD 57; Glucose 131 mg/dL (83-110); Magnesium 1.3 mg/dL (1.6-2.6); Potassium 3.1 mmol/L (3.5-5.1); Sodium 142 mmol/L (136-145)
[2019-11-20] MEDS: Budesonide 0.5 MG/2 ML NEB INH SCH ×2 (08:41→19:13)
[2019-11-20] MEDS ORDERED: Pantoprazole 40 MG GRANULES PACKET PO SCH (09:00)
[2019-11-20] MEDS ORDERED: Enoxaparin Sodium 40 MG/0.4 ML SYRINGE SC SCH (09:00)
[2019-11-20 09:24] LABS: Band 6 % (5-11); Eosinophils 1 % (0-10); Lymphocytes 10 % (21-51); MDiff Complete? YES; Monocytes 3 % (0-10); Neutrophil 80 % (42-75); Platelet Morphology Comment Appears Adequate; Polychromasia SLIGHT = 2-3 cells (100X) (0-2/hpf); Tear Drops SLIGHT = 2-5 cells (100X) (0-1/hpf)
[2019-11-20] MEDS: Furosemide 40 MG/4 ML VIAL SLOW IVP SCH (10:28)
[2019-11-20] MEDS: methylPREDNISolone Sod Succ 40 MG VIAL IVP SCH ×2 (10:29→20:53)
[2019-11-20] MEDS: Senokot S 8.6-50 MG TAB PO PRN ×2 (10:29→18:10)
[2019-11-20] MEDS: Megestrol Acetate 800 MG/20 ML UDCUP PO SCH (10:29)
[2019-11-20] MEDS ORDERED: Magnesium Sulfate 4 GM in Sodium Chloride 0.9% 250 ML 250 ML IVPB SCH (12:15)
[2019-11-20] MEDS ORDERED: Potassium Chloride 20 MEQ TAB PO SCH (12:15)
[2019-11-20 12:30] LABS: SARS-CoV-2 MS2 Positive; SARS-CoV-2 N Gene Negative; SARS-CoV-2 S Gene Negative; SARS-CoV-2 by NAA Not Detected (NotDetected); SARS-CoV-2 orf1ab Negative
--- NOTE | 2019-11-20 16:43 | CON ---
DATE OF CONSULTATION: 11/20/2019 REASON FOR CONSULTATION: Pulmonary infiltrates. CONSULTING PROVIDER: Lexus Watson, Nurse practitioner. HISTORY OF PRESENT ILLNESS: The patient is a pleasant 73-year-old female, who was admitted to this facility on 11/19/[address] Castanon's office. She presented with increasing shortness of breath and hypoxemia. She recently completed her 4th round of chemotherapy for B-cell lymphoma. I am told that consisted of Adriamycin, Cytoxan, vincristine, and Rituxan. She has had pancytopenia developed from the chemo in the past. She denies cough, but says that she does feel short of breath. She has had some problems with nasal congestion. She has had no hemoptysis. PAST MEDICAL HISTORY: 1. Large B-cell lymphoma originating in the neck. 2. Hypertension. PAST SURGICAL HISTORY: 1. Hysterectomy. 2. MediPort placement. SOCIAL HISTORY: No history of smoking or alcohol use. Lives at home with her . Fully active with daily activity of living. REVIEW OF SYSTEMS: Has had no subjective fever, chills, nausea, vomiting, hematemesis, melena, hematochezia, hematuria, or dysuria. MEDICATIONS: Prior to admission in addition to her chemotherapy regimen, she was taking; 1. Metamucil. 2. Tylenol. 3. Levsin. 4. [place]. 5. Compazine. 6. Nystatin swish and swallow. 7. Loratadine. 8. Pantoprazole. 9. Megace. 10. Alprazolam. 11. Carvedilol. 12. Losartan. 13. Sertraline. 14. Arixtra. 15. Prednisone. Current inpatient medications include cefepime, vancomycin, and IV methylprednisolone. PHYSICAL EXAMINATION: VITAL SIGNS: Her O2 saturation is running in the mid to low 90s on 3 L nasal cannula, pulse 93, respirations in the mid 20s, blood pressure 120/65. Last measured temperature 98.4. GENERAL: She is pleasant female, who sits up, gives history without limitation. HEENT: Remarkable for alopecia. NECK: No adenopathy or JVD or bruits. LUNGS: She has inspiratory crackles predominantly at the bases. She has decreased diaphragmatic excursion on the left. CARDIOVASCULAR: S1 and S2. Regular without audible murmur. ABDOMEN: Soft and nontender to palpation. EXTREMITIES: No clubbing, cyanosis, or edema. LABORATORY DATA: Her echocardiogram showed no evidence of systolic dysfunction. Urinalysis showed greater than 50 white blood cells and 5 to 6 red blood cells. Sodium 142, potassium 3.1, chloride 113, CO2 of 16, BUN 19, creatinine 0.9, glucose 131, magnesium 1.3. Troponin 0.038. BNP 147. White blood cell count 4.9, hemoglobin 6.1, hematocrit 18.7, and platelet count 134. I have reviewed her CT from this visit as well as a previous PET scan from July. I have also reviewed multiple chest x-rays over the last several years. She has copious areas of ground-glass infiltration surrounded by fibrotic changes. 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 Her current CT scan shows dissipation of lymphadenopathy. ASSESSMENT: The patient is presenting with fairly profound ground-glass and fibrotic changes on CT of the chest that were present at some degree back in July. This would bring a differential diagnosis of nonspecific interstitial pneumonitis, atypical infection, effects of the chemotherapy. It would appear that this is not cardiac in nature given normal EF on recent echo. However, high-output heart failure cannot be ruled out given her profound anemia. Additionally, this patient has a paralyzed left hemidiaphragm that is probably contributing to reduced lung capacity. PLAN: 1. The patient is already on antibiotics and steroids and is beginning to feel better. For the time being, I would just monitor her on that regimen and see how she does. 2. Correct anemia with transfusion as you are doing. 3. For any worsening, we would need to go in and sample and perform a BAL and send that off for atypical organisms such as Pneumocystis or fungal. I would hold off on the intervention for the time being. Thank you for the referral. I will be glad to follow with you. This was discussed with Shirley. Job ID: [id number]
--- NOTE | 2019-11-20 16:56 | PDOC.HOSPP ---
- Subjective Subjective: Hb dropped to 6.1, she has been typed and crossed 2 units. feeling better. BP improved with intravascular expansion. - Objective Vital Signs & Weight: Vital Signs (12 hours) Temp Pulse Resp Pulse Ox 11/20/19 14:21 93 32 H 94 L 11/20/19 12:04 98.4 F 11/20/19 11:15 93 25 H 98 11/20/19 08:41 95 28 H 100 11/20/19 08:38 95 28 H 100 11/20/19 08:00 100 11/20/19 07:38 98.4 F Weight Admit Weight 124 lb 14.4 oz Weight 124 lb 14.4 oz Most Recent Monitor Data Heart Rate from ECG 92 NIBP 120/65 NIBP BP-Mean 83 Respiration from ECG 34 SpO2 92 I&O: 11/19/19 11/20/19 11/21/19 06:59 06:59 06:59 Intake Total 1010 0 Output Total 725 Balance 285 0 Result Diagrams: 11/20/19 08:09 11/20/19 08:09 Hospitalist ROS - Medication Medications: Active Medications Generic Name Dose Route Start Last Admin Trade Name Freq PRN Reason Stop Dose Admin Albuterol/Ipratropium 3 ml 11/19/19 14:30 11/20/19 14:21 Duoneb NEB 3 ml [id number] DOLLY Administration Budesonide 0.5 mg 11/19/19 18:30 11/20/19 08:41 Pulmicort Neb Solution INH 0.5 mg BID-RT DOLLY Administration Fondaparinux 7.5 mg 11/20/19 09:00 11/20/19 10:28 Arixtra SC 7.5 mg DAILY DOLLY Administration Furosemide 40 mg 11/20/19 09:00 11/20/19 10:28 Lasix SLOW IVP 40 mg DAILY DOLLY Administration Cefepime HCl 1 gm/ Sodium 100 mls @ 200 mls/hr 11/19/19 14:00 11/20/19 01:01 Chloride IVPB 100 mls 0200,1400 DOLLY Administration Megestrol Acetate 400 mg 11/20/19 09:00 11/20/19 10:29 Megace PO 400 mg DAILY DOLLY Administration Methylprednisolone Sodium Succinate 40 mg 11/19/19 21:00 11/20/19 10:29 Solu-Medrol IVP 40 mg BID DOLLY Administration Pantoprazole Sodium 40 mg 11/20/19 09:00 11/20/19 10:31 Protonix PO 40 mg DAILY DOLLY Administration Senna/Docusate Sodium 2 tab 11/19/19 12:58 11/20/19 10:29 Senokot S PO 2 tab BIDPRN PRN Administration Constipation Sertraline HCl 50 mg 11/20/19 09:00 11/20/19 10:30 Zoloft PO 50 mg DAILY DOLLY Administration - Exam General Appearance: NAD Eye: PERRL ENT: normocephalic atraumatic Neck: supple, symmetric Heart: RRR Respiratory: normal chest expansion, rhonchi Gastrointestinal: soft, non-tender Extremities: no cyanosis Skin: normal turgor Neurological: cranial nerve grossly intact Hosp A/P - Plan #Acute hypoxic respiratory failure - likely mulifactorial including PNA, pneumonitis, chronic elevated diagram. CTA neg for PE #Pneumonitis - unclear etiology, infectious etiology vs. chemotherapy related #Sepis - POA, secondary to PNA/E coli UTI #Anemia of chronic disease - secondary to chemotherapy, underlying malignancy #Large B cell lymphoma #E coli UTI #Hypotension - resolved. 11/20/19 Pt has been typed and crossed 2 units. Will give her a dose of diuretic in between units. BP improved with intravascular expansion with colloids cont IV steroid, and empiric IV abx for probable PNA and E coli UTI Follow final UCx and blood cultures. Appreciate specialists' input.
[2019-11-20] MEDS: Vancomycin 1 GM in Premix Bag 1 BAG IVPB SCH (17:00)
[2019-11-20] MEDS ORDERED: Furosemide 40 MG/4 ML VIAL SLOW IVP SCH (17:00)
--- NOTE | 2019-11-21 01:03 | CON ---
DATE OF CONSULTATION: REASON FOR CONSULT: Lymphoma. HISTORY OF PRESENT ILLNESS: Ms. 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 She has activated B-cell subtype with no evidence of double hit on FISH. She presented to our clinic for treatment yesterday on 11/19/2019. She was hypoxic with shortness of breath. She had back pain and left acutely ill. She was directly admitted to this hospital for hypoxia. Her chest x-ray in the ER showed worsening multifocal interstitial lung markings representing atypical infiltrate or interstitial lung disease. She had stable elevation of her left hemidiaphragm. She underwent a CT angio of the chest, which was negative for PE. Again it showed areas of interstitial thickening and ground-glass opacities, which had increased from the prior exam, possibly related to pneumonitis. Her prior mediastinal lymphadenopathy had resolved. She was mildly hypotensive on admission and transferred to the [facility], where she received albumin and IV fluids. She is on oxygen and feeling much better. Ms. Pimentel was diagnosed with lymphoma in July of this year. She has received four cycles of R-CHOP chemotherapy. Her last dose was on November 01. She is a patient, who we share with MD Julian. Muscular scanning takes place in [place]. She has received IV methotrexate with treatment. This was held for cycle 4. She was seen at bedside with her daughter present. She denies any complaints and states she is feeling weak, but otherwise okay. PAST MEDICAL HISTORY: 1. Stage 3 high-grade B-cell lymphoma. 2. History of left lower extremity DVT. 3. Anxiety and depression. 4. History of neutropenic fever with hospitalization after cycle one. 5. Rheumatoid arthritis. 6. Hypertension. PAST SURGICAL HISTORY: 1. Hysterectomy. 2. Lymph node excision. 3. MediPort placement. ALLERGIES: NO KNOWN DRUG ALLERGIES. HOME MEDICATIONS: 1. Alprazolam. 2. Plavix. 3. Claritin. 4. Losartan. 5. Arixtra. 6. Zyrtec. 7. Megestrol. 8. [place]. 9. Protonix. 10. Potassium. 11. Prednisone. 12. Zoloft. FAMILY HISTORY: Daughter had cervical cancer. SOCIAL HISTORY: , has 4 children. No alcohol, tobacco, or illicit drug use. REVIEW OF SYSTEMS: A 10-point review of systems is negative except for noted in HPI. PHYSICAL EXAMINATION: VITAL SIGNS: Temperature is 98.4, pulse is 93, respiratory rate is 32, and BP is 120/65. She is 94% on 3 L. GENERAL: A well-developed, well-nourished female, in no acute distress. HEENT: Normocephalic and atraumatic. Pupils are equal and reactive to light. NECK: Supple. CV: Regular rate and rhythm. LUNGS: She has crackles throughout. ABDOMEN: Soft and nontender. Bowel sounds are positive. EXTREMITIES: No clubbing or cyanosis. SKIN: No rash. HEMATOLOGIC: No petechiae or purpura. NEUROLOGIC: Nonfocal. PERTINENT LABORATORY DATA AND X-RAYS: Current WBCs are 4.9, hemoglobin 6.1, hematocrit 18.7, and platelet count is 134,000. She has 80% neutrophils, 6% bands, and 10% lymphocytes. Sodium 142, potassium 3.1, chloride 113, CO2 of 16, BUN is 19, creatinine 0.96, calcium 7.9, magnesium 1.3, bilirubin 0.7, AST is 22, ALT is 16, and alkaline phosphatase is 114. Troponin 0.038 and BNP is 147. Serum total protein 4.8, albumin 2.6, and globulin 2.2. 1+ bacteria with positive leukocyte esterase on urine. COVID-19 PCR is negative. Radiology per HPI. ASSESSMENT: 1. Acute hypoxic respiratory failure. 2. Large B-cell lymphoma, on chemotherapy. 3. Anemia. DISCUSSION: The patient's hemoglobin is dropped to 6.0 today. She is receiving 2 units of packed RBCs. She remains on antibiotics and O2. Dr. Copeland with Pulmonology was consulted for his opinion regarding possible pneumonitis pneumonia. She remains in the IMCU at this time, but hopefully will improve and be able to go to a normal room shortly person. We will continue to monitor her CBC daily and provide supportive care. Her chemotherapy will be held until she has recovered from this acute illness. Thank you for the consult. Job ID: [id number]
[2019-11-21] MEDS: ALPRAZolam 0.25 MG TAB PO PRN ×2 (02:22→20:37)
[2019-11-21] MEDS: Cefepime 1 GM in Sodium Chloride 0.9% 100 ML IVPB SCH ×2 (02:26→15:37)
[2019-11-21 04:11] LABS: Anion Gap 15 mmol/L (10-20); BUN (Urea Nitrogen) 20 mg/dL (9.8-20.1); Calc. Creatinine Clearance 47 mL/min (70-130); Calcium 8.1 mg/dL (7.8-10.44); Carbon Dioxide 20 mmol/L (23-31); Chloride 113 mmol/L (98-107); Estimated GFR-MDRD 58; Glucose 144 mg/dL (83-110); Potassium 3.5 mmol/L (3.5-5.1); Sodium 144 mmol/L (136-145)
[2019-11-21 04:27] LABS: #Eosinphils 0.1 thou/uL (0.0-0.7); #Monocytes 0.4 thou/uL (0.11-0.59); #Neutrophils 8.7 thou/uL (1.40-6.50); %Basophils 0.1 % (0.0-1.0); %Eosinophils 0.7 % (0.0-10.0); %Lymphocytes 10.1 % (21.0-51.0); %Monocytes 3.8 % (0.0-10.0); %Neutrophils 85.3 % (42.0-75.0); Hemoglobin 9.2 g/dL (12.0-16.0); Mean Corpuscular HGB CONC 34.3 g/dL (32.0-36.0); Mean Corpuscular Hemoglobin 30.8 pg (27.0-31.0); Mean Corpuscular Volume 89.8 fL (78.0-98.0); Mean Platelet Volume 8.1 fL (7.4-10.4); Platelet Count 160 thou/uL (130-400); Red Blood Cell (RBC) Count 2.98 mill/uL (4.20-5.40); White Blood Cell (WBC) Count 10.2 thou/uL (4.8-10.8)
[2019-11-21] MEDS: Budesonide 0.5 MG/2 ML NEB INH SCH ×2 (06:49→18:21)
[2019-11-21] MEDS: Megestrol Acetate 800 MG/20 ML UDCUP PO SCH (08:41)
[2019-11-21] MEDS: methylPREDNISolone Sod Succ 40 MG VIAL IVP SCH ×2 (08:41→20:38)
[2019-11-21] MEDS: Furosemide 40 MG/4 ML VIAL SLOW IVP SCH (08:41)
--- NOTE | 2019-11-21 09:21 | PRG ---
DATE OF SERVICE: 11/21/2019 SUBJECTIVE: The patient feels better today. Had no acute complaints. OBJECTIVE: VITAL SIGNS: Temperature 97.8, pulse 88, and O2 saturation 97% on 3 L. HEENT: Unremarkable. NECK: No JVD. LUNGS: Inspiratory crackles bilaterally. CARDIAC: S1 and S2, regular. ABDOMEN: Soft. EXTREMITIES: No edema. LABORATORY DATA: White blood cell count 10.2, hematocrit 26.8, and platelet count 160. Sodium 144, potassium 3.5, chloride 113, CO2 of 20, BUN 20, creatinine 0.9, and glucose 144. ASSESSMENT: Bilateral interstitial infiltrates, likely due to either nonspecific interstitial pneumonitis, atypical infection, or drug effects of the chemotherapy. PLAN: She seems to be responding to current antibiotic and steroid regimen. She has stable transfer out to the Oncology unit. I would continue antibiotics for 7 to 10 days. I will recheck an x-ray tomorrow. Bronchoscopy will be reserved for a situation which her current condition worsens. Job ID: [id number]
--- NOTE | 2019-11-21 10:51 | PDOC.MOPN ---
Interval History: feels well, complains of constipation - Vital Signs Vital Signs: Vital Signs (12 hours) Temp Pulse Resp Pulse Ox 11/21/19 08:00 96 11/21/19 07:27 97.8 F 11/21/19 06:49 88 22 H 96 11/21/19 04:00 98.8 F 11/21/19 02:14 85 28 H 11/21/19 01:04 98.6 F 11/20/19 23:48 98.9 F Weight Admit Weight 124 lb 14.4 oz Weight 124 lb 14.4 oz Most Recent Monitor Data Heart Rate from ECG 96 NIBP 144/89 NIBP BP-Mean 107 Respiration from ECG 22 SpO2 100 - Physical Exam General: Alert, Oriented x3, No acute distress HEENT: Atraumatic, PERRLA, EOMI, Mucous membr. moist/pink Lungs: Other (crackles) Cardiovascular: Regular rate Abdomen: Normal bowel sounds Extremities: No clubbing, No cyanosis, No edema, Normal pulses, No tenderness/ swelling Neurological: Normal speech - Labs Result Diagrams: 11/21/19 03:45 11/21/19 03:45 Lab results: Laboratory Results - last 24 hr 11/21/19 03:45: WBC 10.2, RBC 2.98 L, Hgb 9.2 L, Hct 26.8 L, MCV 89.8, MCH 30.8 , MCHC 34.3, RDW 16.0 H, Plt Count 160, MPV 8.1, Neutrophils % 85.3 H, Lymphocytes % 10.1 L, Monocytes % 3.8, Eosinophils % 0.7, Basophils % 0.1, Neutrophils # 8.7 H, Lymphocytes # 1.0 L, Monocytes # 0.4, Eosinophils # 0.1, Basophils # 0.0 11/21/19 03:45: Sodium 144, Potassium 3.5, Chloride 113 H, Carbon Dioxide 20 L, Anion Gap 15, BUN 20, Creatinine 0.94, Estimated GFR (MDRD) 58, Glucose 144 H, Calcium 8.1 11/20/19 10:53: Blood Type A POSITIVE, Antibody Screen Cancelled, Ab Screen Tube Method NEGATIVE, Crossmatch See Detail 11/19/19 15:00: COVID-19 PCR Not Detected Status: lab reviewed by me A/P - Problem (1) Acute respiratory disorder in immunocompromised patient Current Visit: Yes Code(s): J06.9 - ACUTE UPPER RESPIRATORY INFECTION, UNSPECIFIED; D89.9 - DISORDER INVOLVING THE IMMUNE MECHANISM, UNSPECIFIED Status: Acute (2) 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 home soon
--- NOTE | 2019-11-21 15:21 | PDOC.HOSPP ---
- Subjective Subjective: still sob but improved. pt transferred out of IM. Hb improved appropriately with transfusions. E coli sensitivity reviewed. - Objective Vital Signs & Weight: Vital Signs (12 hours) Temp Pulse Resp BP Pulse Ox Pulse Ox Pulse Ox 11/21/19 14:17 98 20 93 L 11/21/19 13:05 94 L 11/21/19 11:42 97.6 F 113 H 20 187/89 H 94 L 11/21/19 11:05 89 23 H 95 11/21/19 10:25 98 94 L 11/21/19 08:00 96 11/21/19 07:27 97.8 F 11/21/19 06:49 88 22 H 96 11/21/19 04:00 98.8 F Pulse Ox 11/21/19 14:17 11/21/19 13:05 11/21/19 11:42 11/21/19 11:05 11/21/19 10:25 93 L 11/21/19 08:00 11/21/19 07:27 11/21/19 06:49 11/21/19 04:00 Weight Admit Weight 124 lb 14.4 oz Weight 124 lb 14.4 oz Most Recent Monitor Data Heart Rate from ECG 96 NIBP 144/89 NIBP BP-Mean 107 Respiration from ECG 22 SpO2 100 I&O: 11/20/19 11/21/19 11/22/19 06:59 06:59 06:59 Intake Total 1010 2240 Output Total 725 2000 Balance 285 240 Result Diagrams: 11/21/19 03:45 11/21/19 03:45 Hospitalist ROS - Medication Medications: Active Medications Generic Name Dose Route Start Last Admin Trade Name Freq PRN Reason Stop Dose Admin Hydrocodone Bitart/Acetaminophen 1 tab 11/19/19 12:58 11/20/19 20:53 [place] 5/325 PO 1 tab Q4H PRN Administration Moderate Pain (4-6) Albuterol/Ipratropium 3 ml 11/19/19 14:30 11/21/19 14:17 Duoneb NEB 3 ml [id number] DOLLY Administration Alprazolam 0.25 mg 11/19/19 16:19 11/21/19 02:22 Xanax PO 0.25 mg TID PRN Administration Anxiety Budesonide 0.5 mg 11/19/19 18:30 11/21/19 06:49 Pulmicort Neb Solution INH 0.5 mg BID-RT DOLLY Administration Fondaparinux 7.5 mg 11/20/19 09:00 11/21/19 12:02 Arixtra SC 7.5 mg DAILY DOLLY Administration Furosemide 40 mg 11/20/19 09:00 11/21/19 08:41 Lasix SLOW IVP 40 mg DAILY DOLLY Administration Cefepime HCl 1 gm/ Sodium 100 mls @ 200 mls/hr 11/19/19 14:00 11/21/19 02:26 Chloride IVPB 100 mls 0200,1400 DOLLY Administration Vancomycin HCl 1 gm/ Device 200 mls @ 200 mls/hr 11/20/19 15:00 11/20/19 17: 00 IVPB 200 mls 1500 DOLLY Administration Megestrol Acetate 400 mg 11/20/19 09:00 11/21/19 08:41 Megace PO 400 mg DAILY DOLLY Administration Methylprednisolone Sodium Succinate 40 mg 11/19/19 21:00 11/21/19 08:41 Solu-Medrol IVP 40 mg BID DOLLY Administration Pantoprazole Sodium 40 mg 11/20/19 09:00 11/21/19 08:41 Protonix PO 40 mg DAILY DOLLY Administration Senna/Docusate Sodium 2 tab 11/19/19 12:58 11/20/19 18:10 Senokot S PO 2 tab BIDPRN PRN Administration Constipation Sertraline HCl 50 mg 11/20/19 09:00 11/21/19 08:41 Zoloft PO 50 mg DAILY DOLLY Administration Hosp A/P - Plan #Acute hypoxic respiratory failure - likely mulifactorial including PNA, pneumonitis, chronic elevated diagram. CTA neg for PE #Pneumonitis - unclear etiology, infectious etiology vs. chemotherapy related #Sepis - POA, secondary to PNA/E coli UTI #Anemia of chronic disease - secondary to chemotherapy, underlying malignancy #Large B cell lymphoma #E coli UTI #Hypotension - resolved. 11/21/19 Clinically improving. Hb stable. Wean O2 as tolerated. Cont IV steroid, consider de-escalate IV abx tomorrow if cont to improve. cont supportive cares. PT eval. Specialists are following, appreciate input. Rpt labs in AM 11/20/19 Pt has been typed and crossed 2 units. Will give her a dose of diuretic in between units. BP improved with intravascular expansion with colloids cont IV steroid, and empiric IV abx for probable PNA and E coli UTI Follow final UCx and blood cultures. Appreciate specialists' input.
[2019-11-21 16:16] LABS: Vancomycin, Trough 13.6 ug/mL
[2019-11-21] MEDS: Vancomycin 1 GM in Premix Bag 1 BAG IVPB SCH (16:30)
[2019-11-21] MEDS: Polyethylene Glycol 3350 17 GM Packet PO PRN (16:33)
[2019-11-21] MEDS: Docusate 100 MG CAP PO SCH (20:41)
[2019-11-22] MEDS: Cefepime 1 GM in Sodium Chloride 0.9% 100 ML IVPB SCH ×2 (04:15→16:48)
[2019-11-22 04:40] LABS: #Eosinphils 0.1 thou/uL (0.0-0.7); #Lymphocytes 1.1 thou/uL (1.20-3.40); #Monocytes 0.7 thou/uL (0.11-0.59); #Neutrophils 9.9 thou/uL (1.40-6.50); %Basophils 0.1 % (0.0-1.0); %Eosinophils 0.6 % (0.0-10.0); %Lymphocytes 9.6 % (21.0-51.0); %Monocytes 5.6 % (0.0-10.0); %Neutrophils 84.2 % (42.0-75.0); Hemoglobin 10.1 g/dL (12.0-16.0); Mean Corpuscular HGB CONC 32.5 g/dL (32.0-36.0); Mean Corpuscular Hemoglobin 29.5 pg (27.0-31.0); Mean Corpuscular Volume 90.6 fL (78.0-98.0); Platelet Count 182 thou/uL (130-400); RBC Distribution Width 16.7 % (11.5-14.5); Red Blood Cell (RBC) Count 3.43 mill/uL (4.20-5.40); White Blood Cell (WBC) Count 11.7 thou/uL (4.8-10.8)
[2019-11-22 04:58] LABS: Anion Gap 16 mmol/L (10-20); BUN (Urea Nitrogen) 26 mg/dL (9.8-20.1); Calc. Creatinine Clearance 54 mL/min (70-130); Calcium 8.5 mg/dL (7.8-10.44); Carbon Dioxide 22 mmol/L (23-31); Chloride 112 mmol/L (98-107); Estimated GFR-MDRD 69; Glucose 131 mg/dL (83-110); Potassium 3.7 mmol/L (3.5-5.1); Sodium 146 mmol/L (136-145)
[2019-11-22] MEDS: Budesonide 0.5 MG/2 ML NEB INH SCH ×2 (07:43→19:21)
--- NOTE | 2019-11-22 07:56 | RAD ---
EXAM: Single view of the chest HISTORY: Pneumonia COMPARISON: 11/19/2019 FINDINGS: Single view of the chest shows an enlarged but stable cardiomediastinal silhouette. The Me diport is unchanged in position. There are diffuse stable mixed multifocal infiltrates in the lungs. No acute osseous abnormality. IMPRESSION: Stable multifocal infiltrates
[2019-11-22] MEDS: Docusate 100 MG CAP PO SCH ×2 (08:52→20:56)
[2019-11-22] MEDS: Megestrol Acetate 800 MG/20 ML UDCUP PO SCH (08:52)
[2019-11-22] MEDS: Senokot S 8.6-50 MG TAB PO PRN (08:52)
[2019-11-22] MEDS: Furosemide 40 MG/4 ML VIAL SLOW IVP SCH (08:53)
[2019-11-22] MEDS: methylPREDNISolone Sod Succ 40 MG VIAL IVP SCH ×2 (08:53→20:56)
--- NOTE | 2019-11-22 10:03 | PRG ---
DATE OF SERVICE: SUBJECTIVE: She is about the same. Continue on 3 L nasal cannula. OBJECTIVE: VITAL SIGNS: O2 saturations about 93%, pulse 98, temperature 97.9, blood pressure 148/80. HEENT: Unremarkable. NECK: No JVD. LUNGS: Inspiratory crackles at the bases. CARDIAC: S1, S2. Regular. ABDOMEN: Soft. EXTREMITIES: No edema. LABORATORY DATA: Sodium 146, BUN 26, creatinine 0.8, glucose 131. White blood cell count 11.7, hematocrit 31, and platelet count 182. Chest x-ray looks about the same. ASSESSMENT: Slowly improving pneumonia-no organism identified. Changes could also be due to nonspecific interstitial pneumonitis or the chemotherapeutic agents. PLAN: Continue steroids, antibiotics, and give her some time. Job ID: [id number]
--- NOTE | 2019-11-22 10:06 | PDOC.MOPN ---
Interval History: sitting on side of bed eating breakfast, feeling much better. - Vital Signs Vital Signs: Vital Signs (12 hours) Temp Pulse Resp BP Pulse Ox 11/22/19 08:57 97.2 F L 100 24 H 134/89 92 L 11/22/19 07:43 93 L 11/22/19 07:41 98 20 93 L 11/22/19 04:00 97.9 F 94 22 H 148/80 H 94 L 11/22/19 01:43 94 20 95 Weight Admit Weight 124 lb 14.4 oz Weight 124 lb 14.4 oz Most Recent Monitor Data Heart Rate from ECG 96 NIBP 144/89 NIBP BP-Mean 107 Respiration from ECG 22 SpO2 100 - Physical Exam General: Alert, Oriented x3, No acute distress HEENT: Atraumatic, PERRLA, EOMI, Mucous membr. moist/pink Lungs: Other (crackles) Cardiovascular: Regular rate, Normal S1, Normal S2, No murmurs, Gallops, Rubs Abdomen: Normal bowel sounds, Soft, No tenderness, No hepatospenomegaly, No masses Neurological: Normal gait, Normal speech, Strength at 5/5 X4 ext, Normal tone, Sensation intact, Cranial nerves 3-12 NL, Reflexes 2+ Psych/Mental Status: Mental status NL, Mood NL - Labs Result Diagrams: 11/22/19 04:26 11/22/19 04:26 Lab results: Laboratory Results - last 24 hr 11/22/19 04:26: WBC 11.7 H, RBC 3.43 L, Hgb 10.1 L, Hct 31.1 L, MCV 90.6, MCH 29.5, MCHC 32.5, RDW 16.7 H, Plt Count 182, MPV 8.0, Neutrophils % 84.2 H, Lymphocytes % 9.6 L, Monocytes % 5.6, Eosinophils % 0.6, Basophils % 0.1, Neutrophils # 9.9 H, Lymphocytes # 1.1 L, Monocytes # 0.7 H, Eosinophils # 0.1, Basophils # 0.0 11/22/19 04:26: Sodium 146 H, Potassium 3.7, Chloride 112 H, Carbon Dioxide 22 L , Anion Gap 16, BUN 26 H, Creatinine 0.81, Estimated GFR (MDRD) 69, Glucose 131 H, Calcium 8.5, Magnesium 2.0 11/21/19 15:52: Vancomycin Trough 13.6 Status: lab reviewed by me A/P - Problem (1) Acute respiratory disorder in immunocompromised patient Current Visit: Yes Code(s): J06.9 - ACUTE UPPER RESPIRATORY INFECTION, UNSPECIFIED; D89.9 - DISORDER INVOLVING THE IMMUNE MECHANISM, UNSPECIFIED Status: Acute (2) 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
--- NOTE | 2019-11-22 15:14 | PDOC.HOSPP ---
- Subjective Subjective: Patient was seen examined at bedside. No acute events overnight. Patient still complains short of breath. Discussed with pulmonology. Appreciate recommendation. Her hemoglobin remained stable after blood transfusion. She is to require 3 L satting in the low 90%. Chest x-ray reviewed. Electrolyte corrected. - Objective Vital Signs & Weight: Vital Signs (12 hours) Temp Pulse Resp BP Pulse Ox Pulse Ox Pulse Ox 11/22/19 14:47 96 16 94 L 11/22/19 10:45 105 H 20 90 L 11/22/19 10:30 90 L 88 L 11/22/19 08:57 97.2 F L 100 24 H 134/89 92 L 11/22/19 07:43 93 L 11/22/19 07:41 98 20 93 L 11/22/19 04:00 97.9 F 94 22 H 148/80 H 94 L Pulse Ox 11/22/19 14:47 11/22/19 10:45 11/22/19 10:30 92 L 11/22/19 08:57 11/22/19 07:43 11/22/19 07:41 11/22/19 04:00 Weight Admit Weight 124 lb 14.4 oz Weight 124 lb 14.4 oz Most Recent Monitor Data Heart Rate from ECG 96 NIBP 144/89 NIBP BP-Mean 107 Respiration from ECG 22 SpO2 100 I&O: 11/21/19 11/22/19 11/23/19 06:59 06:59 06:59 Intake Total 2240 800 Output Total 2000 Balance 240 800 Result Diagrams: 11/22/19 04:26 11/22/19 04:26 Hospitalist ROS - Medication Medications: Active Medications Generic Name Dose Route Start Last Admin Trade Name Freq PRN Reason Stop Dose Admin Hydrocodone Bitart/Acetaminophen 1 tab 11/19/19 12:58 11/20/19 20:53 [place] 5/325 PO 1 tab Q4H PRN Administration Moderate Pain (4-6) Albuterol/Ipratropium 3 ml 11/19/19 14:30 11/22/19 14:47 Duoneb NEB 3 ml [id number] DOLLY Administration Alprazolam 0.25 mg 11/19/19 16:19 11/21/19 20:37 Xanax PO 0.25 mg TID PRN Administration Anxiety Budesonide 0.5 mg 11/19/19 18:30 11/22/19 07:43 Pulmicort Neb Solution INH 0.5 mg BID-RT DOLLY Administration Docusate Sodium 100 mg 11/21/19 21:00 11/22/19 08:52 Colace PO 100 mg BID DOLLY Administration Fondaparinux 7.5 mg 11/20/19 09:00 11/22/19 08:53 Arixtra SC 7.5 mg DAILY DOLLY Administration Furosemide 40 mg 11/20/19 09:00 11/22/19 08:53 Lasix SLOW IVP 40 mg DAILY DOLLY Administration Cefepime HCl 1 gm/ Sodium 100 mls @ 200 mls/hr 11/22/19 04:00 11/22/19 04:15 Chloride IVPB 100 mls 0400,1600 DOLLY Administration Megestrol Acetate 400 mg 11/20/19 09:00 11/22/19 08:52 Megace PO 400 mg DAILY DOLLY Administration Methylprednisolone Sodium Succinate 40 mg 11/19/19 21:00 11/22/19 08:53 Solu-Medrol IVP 40 mg BID DOLLY Administration Pantoprazole Sodium 40 mg 11/20/19 09:00 11/22/19 08:52 Protonix PO 40 mg DAILY DOLLY Administration Polyethylene Glycol 17 gm 11/21/19 10:48 11/21/19 16:33 Miralax PO 17 gm DAILYPRN PRN Administration Constipation Senna/Docusate Sodium 2 tab 11/19/19 12:58 11/22/19 08:52 Senokot S PO 2 tab BIDPRN PRN Administration Constipation Sertraline HCl 50 mg 11/20/19 09:00 11/22/19 08:52 Zoloft PO 50 mg DAILY DOLLY Administration - Exam General Appearance: NAD Eye: PERRL, anicteric sclera ENT: normocephalic atraumatic Neck: supple, symmetric, no JVD Heart: RRR, no murmur Respiratory: rhonchi Gastrointestinal: soft, non-tender Extremities: no cyanosis, no clubbing, no edema Skin: normal turgor, no lesions Neurological: cranial nerve grossly intact Musculoskeletal: normal tone, normal strength Psychiatric: normal affect, normal behavior, A&O x 3 Hosp A/P - Plan #Acute hypoxic respiratory failure - likely mulifactorial including PNA, pneumonitis, chronic elevated diagram. CTA neg for PE #Pneumonitis - unclear etiology, infectious etiology vs. chemotherapy related #Sepis - POA, secondary to PNA/E coli UTI #Anemia of chronic disease - secondary to chemotherapy, underlying malignancy. s /p transfusions #Large B cell lymphoma #E coli UTI #Hypotension - resolved. 11/22/19 Patient's still dyspneic. She is currently is on Solu-Medrol twice daily, and IV antibiotics. Slow to progress. Pulmonology and oncology are following. Her hemoglobin remained stable after transfusion. Sensitivity for urine cultures reviewed. We will check a.m. lab including sed rate/CRP. Will check respiratory culture, and serologies including strep pneumoniae, legionella. Continue supportive cares. 11/21/19 Clinically improving. Hb stable. Wean O2 as tolerated. Cont IV steroid, consider de-escalate IV abx tomorrow if cont to improve. cont supportive cares. PT eval. Specialists are following, appreciate input. Rpt labs in AM 11/20/19 Pt has been typed and crossed 2 units. Will give her a dose of diuretic in between units. BP improved with intravascular expansion with colloids cont IV steroid, and empiric IV abx for probable PNA and E coli UTI Follow final UCx and blood cultures. Appreciate specialists' input.
[2019-11-22] MEDS: Vancomycin HCl 1.25 GM in Sodium Chloride 0.9% 250 ML 250 ML IVPB SCH (17:25)
[2019-11-22] MEDS: ALPRAZolam 0.25 MG TAB PO PRN (20:59)
[2019-11-23] MEDS: Cefepime 1 GM in Sodium Chloride 0.9% 100 ML IVPB SCH ×2 (04:46→15:30)
[2019-11-23 05:37] LABS: #Eosinphils 0.1 thou/uL (0.0-0.7); #Lymphocytes 0.9 thou/uL (1.20-3.40); #Monocytes 0.6 thou/uL (0.11-0.59); #Neutrophils 7.3 thou/uL (1.40-6.50); %Basophils 0.1 % (0.0-1.0); %Eosinophils 0.8 % (0.0-10.0); %Lymphocytes 9.9 % (21.0-51.0); %Monocytes 6.4 % (0.0-10.0); %Neutrophils 82.9 % (42.0-75.0); Mean Corpuscular HGB CONC 33.1 g/dL (32.0-36.0); Mean Corpuscular Hemoglobin 30.5 pg (27.0-31.0); Mean Corpuscular Volume 92.1 fL (78.0-98.0); Mean Platelet Volume 8.3 fL (7.4-10.4); Platelet Count 152 thou/uL (130-400); RBC Distribution Width 16.5 % (11.5-14.5); Red Blood Cell (RBC) Count 3.26 mill/uL (4.20-5.40); White Blood Cell (WBC) Count 8.8 thou/uL (4.8-10.8)
[2019-11-23 06:04] LABS: ALT (SGPT) 15 U/L (8-55); AST (SGOT) 18 U/L (5-34); Albumin 3.4 g/dL (3.4-4.8); Alkaline Phosphatase 92 U/L (40-110); Anion Gap 12 mmol/L (10-20); BUN (Urea Nitrogen) 25 mg/dL (9.8-20.1); Bilirubin, Total 0.7 mg/dL (0.2-1.2); Calc. Creatinine Clearance 57 mL/min (70-130); Calcium 8.3 mg/dL (7.8-10.44); Carbon Dioxide 25 mmol/L (23-31); Chloride 109 mmol/L (98-107); Estimated GFR-MDRD 72; Globulin 1.9 g/dL (2.4-3.5); Glucose 137 mg/dL (83-110); Potassium 3.3 mmol/L (3.5-5.1); Protein, Total 5.3 g/dL (6.0-8.3); Sodium 143 mmol/L (136-145)
[2019-11-23] MEDS: Docusate 100 MG CAP PO SCH ×2 (09:16→20:57)
[2019-11-23] MEDS: Furosemide 40 MG/4 ML VIAL SLOW IVP SCH (09:16)
[2019-11-23] MEDS: methylPREDNISolone Sod Succ 40 MG VIAL IVP SCH ×2 (09:16→20:50)
[2019-11-23] MEDS: Megestrol Acetate 800 MG/20 ML UDCUP PO SCH (09:16)
[2019-11-23] MEDS: Polyethylene Glycol 3350 17 GM Packet PO PRN (09:16)
--- NOTE | 2019-11-23 10:13 | PRG ---
DATE OF SERVICE: 11/23/2019 SUBJECTIVE: The patient is doing reasonably well. Says she is breathing better. PHYSICAL EXAMINATION: VITAL SIGNS: O2 saturations 99% on 4 L, temperature 98.3, respirations 20. HEENT: Unremarkable. NECK: No JVD. LUNGS: Inspiratory crackles toward the bases. CARDIAC: S1, S2. Regular. ABDOMEN: Soft. EXTREMITIES: No edema. LABORATORY DATA: White blood cell count 8.8, hematocrit 30, and platelet count 152. Sodium 143, potassium 3.3, BUN 25, creatinine , glucose 137. ASSESSMENT: Pneumonia versus interstitial pneumonitis versus drug effect from the chemotherapy. PLAN: Continue the antibiotics and steroids. Wean oxygen as tolerated. Hopefully home in a couple of days. Job ID: [id number]
[2019-11-23] MEDS: Budesonide 0.5 MG/2 ML NEB INH SCH ×2 (10:17→18:41)
[2019-11-23 11:09] LABS: Strep pneumo Urine Ag NEGATIVE (NEGATIVE)
[2019-11-23] MEDS ORDERED: Potassium Chloride 20 MEQ TAB PO SCH (12:30)
--- NOTE | 2019-11-23 14:08 | PDOC.MOPN ---
Interval History: breathing better. No pain, complaints. - Vital Signs Vital Signs: Vital Signs (12 hours) Temp Pulse Resp BP Pulse Ox 11/23/19 10:17 96 12 11/23/19 09:15 95 11/23/19 08:00 98.3 F 99 20 146/87 H 99 11/23/19 03:47 92 L Weight Admit Weight 124 lb 14.4 oz Weight 124 lb 14.4 oz Most Recent Monitor Data Heart Rate from ECG 96 NIBP 144/89 NIBP BP-Mean 107 Respiration from ECG 22 SpO2 100 - Physical Exam General: Alert, Oriented x3, No acute distress HEENT: Atraumatic, PERRLA, EOMI, Mucous membr. moist/pink Lungs: Clear to auscultation, Normal air movement Cardiovascular: Regular rate, Normal S1, Normal S2, No murmurs, Gallops, Rubs Abdomen: Normal bowel sounds, Soft, No tenderness, No hepatospenomegaly, No masses Neurological: Normal gait, Normal speech, Strength at 5/5 X4 ext, Normal tone, Sensation intact, Cranial nerves 3-12 NL, Reflexes 2+ - Labs Result Diagrams: 11/23/19 04:50 11/23/19 04:50 Lab results: Laboratory Results - last 24 hr 11/23/19 10:00: Ur Strep pneumoniae Ag NEGATIVE 11/23/19 04:50: ESR [place] [id number] 11/23/19 04:50: WBC 8.8, RBC 3.26 L, Hgb 10.0 L, Hct 30.0 L, MCV 92.1, MCH 30.5 , MCHC 33.1, RDW 16.5 H, Plt Count 152, MPV 8.3, Neutrophils % 82.9 H, Lymphocytes % 9.9 L, Monocytes % 6.4, Eosinophils % 0.8, Basophils % 0.1, Neutrophils # 7.3 H, Lymphocytes # 0.9 L, Monocytes # 0.6 H, Eosinophils # 0.1, Basophils # 0.0 11/23/19 04:50: Sodium 143, Potassium 3.3 L, Chloride 109 H, Carbon Dioxide 25, Anion Gap 12, BUN 25 H, Creatinine 0.78, Estimated GFR (MDRD) 72, Glucose 137 H , Calcium 8.3, Total Bilirubin 0.7, AST 18, ALT 15, Alkaline Phosphatase 92, Serum Total Protein 5.3 L, Albumin 3.4, Globulin 1.9 L, Albumin/Globulin Ratio 1.8 Status: lab reviewed by me A/P - Problem (1) Acute respiratory disorder in immunocompromised patient Current Visit: Yes Code(s): J06.9 - ACUTE UPPER RESPIRATORY INFECTION, UNSPECIFIED; D89.9 - DISORDER INVOLVING THE IMMUNE MECHANISM, UNSPECIFIED Status: Acute (2) 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 Supportive care chemo held until recovered.
[2019-11-23] MEDS: Vancomycin HCl 1.25 GM in Sodium Chloride 0.9% 250 ML 250 ML IVPB SCH (16:07)
--- NOTE | 2019-11-23 18:04 | PDOC.HOSPP ---
- Subjective Subjective: Patient was seen examined at bedside. Patient is progressing well. Her oxygen has weaned down to 2 and half satting in the mid 90%. Patient report that her breathing is improved. Her renal function stable as well as her hemoglobin. Blood cultures no growth. Patient currently is on empiric IV antibiotic and steroid for her pneumonitis. Pulmonology's and oncology are following. - Objective Vital Signs & Weight: Vital Signs (12 hours) Temp Pulse Resp BP Pulse Ox 11/23/19 16:33 96 16 11/23/19 10:17 96 12 11/23/19 09:15 95 11/23/19 08:00 98.3 F 99 20 146/87 H 99 Weight Admit Weight 124 lb 14.4 oz Weight 124 lb 14.4 oz Most Recent Monitor Data Heart Rate from ECG 96 NIBP 144/89 NIBP BP-Mean 107 Respiration from ECG 22 SpO2 100 I&O: 11/22/19 11/23/19 11/24/19 06:59 06:59 06:59 Intake Total 800 Balance 800 Result Diagrams: 11/23/19 04:50 11/23/19 04:50 Hospitalist ROS - Medication Medications: Active Medications Generic Name Dose Route Start Last Admin Trade Name Freq PRN Reason Stop Dose Admin Hydrocodone Bitart/Acetaminophen 1 tab 11/19/19 12:58 11/20/19 20:53 [place] 5/325 PO 1 tab Q4H PRN Administration Moderate Pain (4-6) Albuterol/Ipratropium 3 ml 11/19/19 14:30 11/23/19 16:33 Duoneb NEB 3 ml [id number] DOLLY Administration Budesonide 0.5 mg 11/19/19 18:30 11/23/19 10:17 Pulmicort Neb Solution INH 0.5 mg BID-RT DOLLY Administration Docusate Sodium 100 mg 11/21/19 21:00 11/23/19 09:16 Colace PO 100 mg BID DOLLY Administration Fondaparinux 7.5 mg 11/20/19 09:00 11/23/19 10:01 Arixtra [place] 7.5 mg DAILY DOLLY Administration Furosemide 40 mg 11/20/19 09:00 11/23/19 09:16 Lasix SLOW IVP 40 mg DAILY DOLLY Administration Cefepime HCl 1 gm/ Sodium 100 mls @ 200 mls/hr 11/22/19 04:00 11/23/19 15:30 Chloride IVPB 100 mls 0400,1600 DOLLY Administration Vancomycin HCl 1.25 gm/ Sodium 250 mls @ 166.667 mls/hr 11/22/19 17:00 16:07 Chloride IVPB 250 mls 1700 DOLLY Administration Megestrol Acetate 400 mg 11/20/19 09:00 11/23/19 09:16 Megace PO 400 mg DAILY DOLLY Administration Methylprednisolone Sodium Succinate 40 mg 11/19/19 21:00 11/23/19 09:16 Solu-Medrol IVP 40 mg BID DOLLY Administration Pantoprazole Sodium 40 mg 11/20/19 09:00 11/23/19 09:16 Protonix PO 40 mg DAILY DOLLY Administration Polyethylene Glycol 17 gm 11/21/19 10:48 11/23/19 09:16 Miralax PO 17 gm DAILYPRN PRN Administration Constipation Senna/Docusate Sodium 2 tab 11/19/19 12:58 11/22/19 08:52 Senokot S PO 2 tab BIDPRN PRN Administration Constipation Sertraline HCl 50 mg 11/20/19 09:00 11/23/19 09:16 Zoloft PO 50 mg DAILY DOLLY Administration - Exam General Appearance: NAD, awake alert Eye: PERRL, anicteric sclera ENT: normocephalic atraumatic Neck: supple, symmetric, no JVD Heart: RRR, no murmur, no gallops Respiratory: normal chest expansion, rhonchi Gastrointestinal: soft, non-tender, non-distended Extremities: no cyanosis, no edema Skin: normal turgor Neurological: cranial nerve grossly intact Musculoskeletal: normal tone, normal strength Psychiatric: normal affect, normal behavior, A&O x 3 Hosp A/P - Plan #Acute hypoxic respiratory failure - likely mulifactorial including PNA, pneumonitis, chronic elevated diagram. CTA neg for PE #Pneumonitis - unclear etiology, infectious etiology vs. chemotherapy related #Sepis - POA, secondary to PNA/E coli UTI #Anemia of chronic disease - secondary to chemotherapy, underlying malignancy. s /p transfusions #Large B cell lymphoma #E coli UTI #Hypotension - resolved. 11/23/19 Clinically improving, slowly. Cont to wean O2 as tolerated. Supportive cares. Cont IV abx, and steroids. She likely will needs couple more days before ready for discharge. 11/22/19 Patient's still dyspneic. She is currently is on Solu-Medrol twice daily, and IV antibiotics. Slow to progress. Pulmonology and oncology are following. Her hemoglobin remained stable after transfusion. Sensitivity for urine cultures reviewed. We will check a.m. lab including sed rate/CRP. Will check respiratory culture, and serologies including strep pneumoniae, legionella. Continue supportive cares. 11/21/19 Clinically improving. Hb stable. Wean O2 as tolerated. Cont IV steroid, consider de-escalate IV abx tomorrow if cont to improve. cont supportive cares. PT eval. Specialists are following, appreciate input. Rpt labs in AM 11/20/19 Pt has been typed and crossed 2 units. Will give her a dose of diuretic in between units. BP improved with intravascular expansion with colloids cont IV steroid, and empiric IV abx for probable PNA and E coli UTI Follow final UCx and blood cultures. Appreciate specialists' input.
[2019-11-23] MEDS: ALPRAZolam 0.5 MG TAB PO PRN (20:50)
[2019-11-24] MEDS: Cefepime 1 GM in Sodium Chloride 0.9% 100 ML IVPB SCH ×2 (03:34→15:57)
[2019-11-24 04:43] LABS: #Lymphocytes 0.8 thou/uL (1.20-3.40); #Monocytes 0.4 thou/uL (0.11-0.59); #Neutrophils 6.7 thou/uL (1.40-6.50); %Eosinophils 0.6 % (0.0-10.0); %Lymphocytes 9.8 % (21.0-51.0); %Neutrophils 84.6 % (42.0-75.0); Mean Corpuscular HGB CONC 31.5 g/dL (32.0-36.0); Mean Corpuscular Hemoglobin 29.5 pg (27.0-31.0); Mean Corpuscular Volume 93.6 fL (78.0-98.0); Mean Platelet Volume 8.5 fL (7.4-10.4); Platelet Count 144 thou/uL (130-400); RBC Distribution Width 16.6 % (11.5-14.5); Red Blood Cell (RBC) Count 3.37 mill/uL (4.20-5.40); White Blood Cell (WBC) Count 7.9 thou/uL (4.8-10.8)
[2019-11-24 05:08] LABS: Anion Gap 12 mmol/L (10-20); BUN (Urea Nitrogen) 23 mg/dL (9.8-20.1); CRP (Inflammatory) 1.36 mg/dL (= or < 0.5); Calc. Creatinine Clearance 59 mL/min (70-130); Calcium 8.3 mg/dL (7.8-10.44); Carbon Dioxide 23 mmol/L (23-31); Chloride 111 mmol/L (98-107); Estimated GFR-MDRD 76; Glucose 148 mg/dL (83-110); Magnesium 1.8 mg/dL (1.6-2.6); Potassium 4.3 mmol/L (3.5-5.1); Sodium 142 mmol/L (136-145)
[2019-11-24] MEDS: Budesonide 0.5 MG/2 ML NEB INH SCH ×2 (06:25→19:24)
[2019-11-24] MEDS: Potassium Chloride 20 MEQ TAB PO SCH (08:29)
[2019-11-24] MEDS: Docusate 100 MG CAP PO SCH ×2 (08:30→21:19)
[2019-11-24] MEDS: methylPREDNISolone Sod Succ 40 MG VIAL IVP SCH (08:32)
[2019-11-24] MEDS: Furosemide 40 MG/4 ML VIAL SLOW IVP SCH ×2 (08:32→08:54)
[2019-11-24] MEDS: Megestrol Acetate 800 MG/20 ML UDCUP PO SCH (08:32)
[2019-11-24] MEDS ORDERED: HYDROcodone/Acetaminophen 5/325 mg Tablet PO PRN (08:47)
[2019-11-24] MEDS ORDERED: Carvedilol 25 MG TAB PO SCH (09:00)
[2019-11-24] MEDS: Carvedilol 6.25 MG TAB PO SCH ×2 (09:24→21:19)
--- NOTE | 2019-11-24 14:02 | PDOC.HOSPP ---
- Subjective Encounter Date: 11/24/19 Encounter Time: 10:30 Subjective: pt up in bed no complains. she is on 2.5l of oxygen - Objective Vital Signs & Weight: Vital Signs (12 hours) Temp Pulse Resp BP BP Pulse Ox 11/24/19 11:12 88 16 11/24/19 09:24 127/84 11/24/19 08:00 98.5 F 115 H 22 H 124/70 99 11/24/19 06:25 112 H 20 11/24/19 03:43 102 H Weight Admit Weight 124 lb 14.4 oz Weight 124 lb 14.4 oz Most Recent Monitor Data Heart Rate from ECG 96 NIBP 144/89 NIBP BP-Mean 107 Respiration from ECG 22 SpO2 100 I&O: 11/23/19 11/24/19 11/25/19 06:59 06:59 06:59 Intake Total 1850 Balance 1850 Result Diagrams: 11/24/19 04:07 11/24/19 04:07 Hospitalist ROS - Review of Systems Respiratory: denies: cough, dry, shortness of breath, hemoptysis, SOB with excertion, pleuritic pain, sputum, wheezing, other Cardiovascular: denies: chest pain, palpitations, orthopnea, paroxysmal noc. dyspnea, edema, light headedness, other Gastrointestinal: denies: nausea, vomiting, abdominal pain, diarrhea, constipation, melena, hematochezia, other - Medication Medications: Active Medications Generic Name Dose Route Start Last Admin Trade Name Freq PRN Reason Stop Dose Admin Albuterol/Ipratropium 3 ml 11/19/19 14:30 11/24/19 11:12 Duoneb NEB 3 ml [id number] DOLLY Administration Alprazolam 0.5 mg 11/23/19 12:19 11/23/19 20:50 Xanax PO 0.5 mg TIDPRN PRN Administration Anxiety Budesonide 0.5 mg 11/19/19 18:30 11/24/19 06:25 Pulmicort Neb Solution INH 0.5 mg BID-RT DOLLY Administration Carvedilol 12.5 mg 11/24/19 09:00 11/24/19 09:24 Coreg PO 12.5 mg BID DOLLY Administration Docusate Sodium 100 mg 11/21/19 21:00 11/24/19 08:30 Colace PO 100 mg BID DOLLY Administration Fondaparinux 7.5 mg 11/20/19 09:00 11/24/19 08:30 Arixtra SC 7.5 mg DAILY DOLLY Administration Furosemide 40 mg 11/20/19 09:00 11/24/19 08:54 Lasix SLOW IVP Not Given DAILY DOLLY Cefepime HCl 1 gm/ Sodium 100 mls @ 200 mls/hr 11/22/19 04:00 11/24/19 03:34 Chloride IVPB 100 mls 0400,1600 DOLLY Administration Megestrol Acetate 400 mg 11/20/19 09:00 11/24/19 08:32 Megace PO 400 mg DAILY DOLLY Administration Methylprednisolone Sodium Succinate 40 mg 11/19/19 21:00 11/24/19 08:32 Solu-Medrol IVP 40 mg BID DOLLY Administration Pantoprazole Sodium 40 mg 11/20/19 09:00 11/24/19 08:32 Protonix PO 40 mg DAILY DOLLY Administration Polyethylene Glycol 17 gm 11/21/19 10:48 11/23/19 09:16 Miralax PO 17 gm DAILYPRN PRN Administration Constipation Potassium Chloride 20 meq 11/24/19 08:00 11/24/19 08:29 K-Dur PO 20 meq QAM-WM DOLLY Administration Senna/Docusate Sodium 2 tab 11/19/19 12:58 11/22/19 08:52 Senokot S PO 2 tab BIDPRN PRN Administration Constipation Sertraline HCl 50 mg 11/20/19 09:00 11/24/19 08:32 Zoloft PO 50 mg DAILY DOLLY Administration - Exam Neck: negative: supple, symmetric, no JVD, no thyromegaly, no lymphadenopathy, no carotid bruit, JVD Heart: negative: RRR, no murmur, no gallops, no rubs, normal peripheral pulses, irregular, diminshed peripheral pulses, murmur present, II/IV, III/IV Respiratory: negative: CTAB, no wheezes, no rales, no ronchi, normal chest expansion, no tachypnea, normal percussion, rales, rhonchi, tachypneic, wheezes Gastrointestinal: negative: soft, non-tender, non-distended, normal bowel sounds , no palpable masses, no hepatomegaly, no splenomegaly, no bruit, no guarding, no rigidity, tender to palpation, distended, diminished bowl sounds, voluntary guarding Hosp A/P (1) SOB (shortness of breath) Code(s): R06.02 - SHORTNESS OF BREATH Status: Acute (2) Acute respiratory disorder in immunocompromised patient Code(s): J06.9 - ACUTE UPPER RESPIRATORY INFECTION, UNSPECIFIED; D89.9 - DISORDER INVOLVING THE IMMUNE MECHANISM, UNSPECIFIED Status: Acute (3) 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 CTA neg for PE #Pneumonitis - unclear etiology, infectious etiology vs. chemotherapy related #Sepis - POA, secondary to PNA/E coli UTI #Anemia of chronic disease - secondary to chemotherapy, underlying malignancy. s /p transfusions #Large B cell lymphoma #E coli UTI #Hypotension - resolved. 11/23 pt on 2.5L of NC. she feels better will stop her vanco and will change steroids to po for dinah. possible discharge in the next 25-48hr. coreg started. 11/23/19 Clinically improving, slowly. Cont to wean O2 as tolerated. Supportive cares. Cont IV abx, and steroids. She likely will needs couple more days before ready for discharge. 11/22/19 Patient's still dyspneic. She is currently is on Solu-Medrol twice daily, and IV antibiotics. Slow to progress. Pulmonology and oncology are following. Her hemoglobin remained stable after transfusion. Sensitivity for urine cultures reviewed. We will check a.m. lab including sed rate/CRP. Will check respiratory culture, and serologies including strep pneumoniae, legionella. Continue supportive cares. 11/21/19 Clinically improving. Hb stable. Wean O2 as tolerated. Cont IV steroid, consider de-escalate IV abx tomorrow if cont to improve. cont supportive cares. PT eval. Specialists are following, appreciate input. Rpt labs in AM 11/20/19 Pt has been typed and crossed 2 units. Will give her a dose of diuretic in between units. BP improved with intravascular expansion with colloids cont IV steroid, and empiric IV abx for probable PNA and E coli UTI Follow final UCx and blood cultures. Appreciate specialists' input.
[2019-11-24] MEDS ORDERED: Furosemide 20 MG/2 ML VIAL SLOW IVP SCH (14:15)
[2019-11-24] MEDS: ALPRAZolam 0.5 MG TAB PO PRN (21:19)
[2019-11-24] MEDS: guaiFENesin ER 600 MG TAB PO SCH (21:19)
[2019-11-25] MEDS: Cefepime 1 GM in Sodium Chloride 0.9% 100 ML IVPB SCH (04:43)
[2019-11-25] MEDS: Budesonide 0.5 MG/2 ML NEB INH SCH ×2 (06:10→18:58)
[2019-11-25] MEDS: Megestrol Acetate 800 MG/20 ML UDCUP PO SCH (09:25)
[2019-11-25] MEDS: Carvedilol 6.25 MG TAB PO SCH ×2 (09:29→21:25)
[2019-11-25] MEDS: Potassium Chloride 20 MEQ TAB PO SCH ×2 (09:29→09:37)
[2019-11-25] MEDS: predniSONE 20 MG TAB PO SCH (09:29)
[2019-11-25] MEDS: guaiFENesin ER 600 MG TAB PO SCH ×2 (09:29→21:25)
[2019-11-25] MEDS: Docusate 100 MG CAP PO SCH ×2 (09:30→21:25)
[2019-11-25] MEDS: Furosemide 40 MG/4 ML VIAL SLOW IVP SCH (09:32)
[2019-11-25] MEDS: ALPRAZolam 0.5 MG TAB PO PRN ×2 (09:40→21:25)
--- NOTE | 2019-11-25 10:13 | PRG ---
DATE OF SERVICE: 11/25/2019 SUBJECTIVE: Angeline Pimentel says she is feeling better. She has a little cough today. She have humidity on her oxygen and frequently. Mucinex is being given. We will add humidity to her oxygen. OBJECTIVE: VITAL SIGNS: She is afebrile. Heart rate is 105, respiratory rate is 22, oximetry is 98%, blood pressure 123/66. LUNGS: Clear. HEART: Regular rhythm. ABDOMEN: Soft. LABORATORY DATA: White count 7.9 yesterday. Renal functions normal. Creatinine 0.75 yesterday. BNP was elevated at 775. Her feels that she is 100% better than she was 3 to 4 days ago. IMPRESSION: Interstitial infiltrates on chest radiograph. This could be secondary to chemo, could be secondary to an infectious process with an elevated BNP, some of this could be related to her heart. Surprisingly, her cardiac function is normal by echocardiogram on this admission. She is clinically improving. We will continue to follow. Job ID: [id number]
--- NOTE | 2019-11-25 14:45 | PDOC.HOSPP ---
- Subjective Encounter Date: 11/25/19 Encounter Time: 12:30 Subjective: pt up in bed no complains. - Objective Vital Signs & Weight: Vital Signs (12 hours) Temp Pulse Resp BP BP Pulse Ox 11/25/19 12:00 98.4 F 98 22 H 119/64 94 L 11/25/19 11:00 105 H 20 11/25/19 09:29 127/84 11/25/19 08:00 98.4 F 105 H 22 H 122/66 98 11/25/19 06:10 98 20 Weight Admit Weight 124 lb 14.4 oz Weight 124 lb 14.4 oz Most Recent Monitor Data Heart Rate from ECG 96 NIBP 144/89 NIBP BP-Mean 107 Respiration from ECG 22 SpO2 100 I&O: 11/24/19 11/25/19 11/26/19 06:59 06:59 06:59 Intake Total 1850 1130 250 Balance 1850 1130 250 Result Diagrams: 11/24/19 04:07 11/24/19 04:07 Hospitalist ROS - Review of Systems Cardiovascular: denies: chest pain, palpitations, orthopnea, paroxysmal noc. dyspnea, edema, light headedness, other Gastrointestinal: denies: nausea, vomiting, abdominal pain, diarrhea, constipation, melena, hematochezia, other Genitourinary: denies: dysuria, frequency, incontinence, hematuria, retention, other - Medication Medications: Active Medications Generic Name Dose Route Start Last Admin Trade Name Freq PRN Reason Stop Dose Admin Albuterol/Ipratropium 3 ml 11/19/19 14:30 11/25/19 11:00 Duoneb NEB 3 ml [id number] DOLLY Administration Alprazolam 0.5 mg 11/23/19 12:19 11/25/19 09:40 Xanax PO 0.5 mg TIDPRN PRN Administration Anxiety Budesonide 0.5 mg 11/19/19 18:30 11/25/19 06:10 Pulmicort Neb Solution INH 0.5 mg BID-RT DOLLY Administration Carvedilol 12.5 mg 11/24/19 09:00 11/25/19 09:29 Coreg PO 12.5 mg BID DOLLY Administration Docusate Sodium 100 mg 11/21/19 21:00 11/25/19 09:30 Colace PO 100 mg BID DOLLY Administration Fondaparinux 7.5 mg 11/20/19 09:00 11/25/19 09:31 Arixtra SC 7.5 mg DAILY DOLLY Administration Guaifenesin 600 mg 11/24/19 21:00 11/25/19 09:29 Mucinex PO 600 mg BID DOLLY Administration Megestrol Acetate 400 mg 11/20/19 09:00 11/25/19 09:25 Megace PO 400 mg DAILY DOLLY Administration Pantoprazole Sodium 40 mg 11/20/19 09:00 11/25/19 09:29 Protonix PO 40 mg DAILY DOLLY Administration Polyethylene Glycol 17 gm 11/21/19 10:48 11/23/19 09:16 Miralax PO 17 gm DAILYPRN PRN Administration Constipation Potassium Chloride 20 meq 11/24/19 08:00 11/25/19 09:37 K-Dur PO Not Given QAM-WM DOLLY Prednisone 40 mg 11/25/19 08:00 11/25/19 09:29 Prednisone PO 40 mg QAM-WM DOLLY Administration Senna/Docusate Sodium 2 tab 11/19/19 12:58 11/22/19 08:52 Senokot S PO 2 tab BIDPRN PRN Administration Constipation Sertraline HCl 50 mg 11/20/19 09:00 11/25/19 09:30 Zoloft PO 50 mg DAILY DOLLY Administration - Exam Neck: negative: supple, symmetric, no JVD, no thyromegaly, no lymphadenopathy, no carotid bruit, JVD Heart: negative: RRR, no murmur, no gallops, no rubs, normal peripheral pulses, irregular, diminshed peripheral pulses, murmur present, II/IV, III/IV Respiratory - other findings: crackles to right lower lung. 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 CTA neg for PE #Pneumonitis - unclear etiology, infectious etiology vs. chemotherapy related #Sepis - POA, secondary to PNA/E coli UTI #Anemia of chronic disease - secondary to chemotherapy, underlying malignancy. s /p transfusions #Large B cell lymphoma #E coli UTI #Hypotension - resolved. 11/24 will switch her iv abx to oral. will walk pt to see if she needs oxygen at home. possible discharge in am. 11/23 pt on 2.5L of NC. she feels better will stop her vanco and will change steroids to po for dinah. possible discharge in the next 25-48hr. coreg started. 11/23/19 Clinically improving, slowly. Cont to wean O2 as tolerated. Supportive cares. Cont IV abx, and steroids. She likely will needs couple more days before ready for discharge. 11/22/19 Patient's still dyspneic. She is currently is on Solu-Medrol twice daily, and IV antibiotics. Slow to progress. Pulmonology and oncology are following. Her hemoglobin remained stable after transfusion. Sensitivity for urine cultures reviewed. We will check a.m. lab including sed rate/CRP. Will check respiratory culture, and serologies including strep pneumoniae, legionella. Continue supportive cares. 11/21/19 Clinically improving. Hb stable. Wean O2 as tolerated. Cont IV steroid, consider de-escalate IV abx tomorrow if cont to improve. cont supportive cares. PT eval. Specialists are following, appreciate input. Rpt labs in AM 11/20/19 Pt has been typed and crossed 2 units. Will give her a dose of diuretic in between units. BP improved with intravascular expansion with colloids cont IV steroid, and empiric IV abx for probable PNA and E coli UTI Follow final UCx and blood cultures. Appreciate specialists' input.
[2019-11-25] MEDS: Benzonatate 100 MG CAP PO PRN (17:42)
[2019-11-25] MEDS ORDERED: Furosemide 20 MG TAB PO SCH (17:45)
[2019-11-25] MEDS: Cefdinir 300 MG CAP PO SCH (21:25)
[2019-11-26] MEDS: Budesonide 0.5 MG/2 ML NEB INH SCH ×2 (07:32→18:54)
[2019-11-26] MEDS: Potassium Chloride 20 MEQ TAB PO SCH (08:40)
[2019-11-26] MEDS: Megestrol Acetate 800 MG/20 ML UDCUP PO SCH (09:22)
[2019-11-26] MEDS: Docusate 100 MG CAP PO SCH ×2 (09:23→20:31)
[2019-11-26] MEDS: guaiFENesin ER 600 MG TAB PO SCH ×2 (09:23→20:32)
[2019-11-26] MEDS: Carvedilol 6.25 MG TAB PO SCH ×2 (09:23→20:32)
[2019-11-26] MEDS: predniSONE 20 MG TAB PO SCH (09:23)
[2019-11-26] MEDS: Cefdinir 300 MG CAP PO SCH ×2 (09:23→20:31)
[2019-11-26] MEDS: Furosemide 20 MG TAB PO SCH (09:24)
[2019-11-26] MEDS: ALPRAZolam 0.5 MG TAB PO PRN ×2 (09:24→20:31)
--- NOTE | 2019-11-26 09:25 | PDOC.HOSPP ---
- Subjective Encounter Date: 11/26/19 Encounter Time: 09:15 Subjective: Patient resting in bed with family at side with no complaints. - Objective Vital Signs & Weight: Vital Signs (12 hours) Temp Pulse Resp BP BP Pulse Ox 11/26/19 08:00 98.1 F 84 20 109/55 L 94 L 11/26/19 07:29 89 18 94 L 11/26/19 01:52 88 14 94 L 11/25/19 22:47 96 115/68 11/25/19 22:31 101 H 14 11/25/19 21:25 127/84 Weight Admit Weight 124 lb 14.4 oz Weight 124 lb 14.4 oz Most Recent Monitor Data Heart Rate from ECG 96 NIBP 144/89 NIBP BP-Mean 107 Respiration from ECG 22 SpO2 100 I&O: 11/25/19 11/26/19 11/27/19 06:59 06:59 06:59 Intake Total 1130 1390 Balance 1130 1390 Result Diagrams: 11/24/19 04:07 11/24/19 04:07 Hospitalist ROS - Review of Systems Respiratory: reports: cough Cardiovascular: denies: chest pain, palpitations, orthopnea, paroxysmal noc. dyspnea, edema, light headedness, other Gastrointestinal: denies: nausea, vomiting, abdominal pain, diarrhea, constipation, melena, hematochezia, other Genitourinary: denies: dysuria, frequency, incontinence, hematuria, retention, other - Medication Medications: Active Medications Generic Name Dose Route Start Last Admin Trade Name Freq PRN Reason Stop Dose Admin Albuterol/Ipratropium 3 ml 11/19/19 14:30 11/26/19 07:29 Duoneb NEB 3 ml [id number] DOLLY Administration Alprazolam 0.5 mg 11/23/19 12:19 11/25/19 21:25 Xanax PO 0.5 mg TIDPRN PRN Administration Anxiety Benzonatate 100 mg 11/25/19 13:06 11/25/19 17:42 Tessalon PO 100 mg TIDPRN PRN Administration Cough Budesonide 0.5 mg 11/19/19 18:30 11/26/19 07:32 Pulmicort Neb Solution INH 0.5 mg BID-RT DOLLY Administration Carvedilol 12.5 mg 11/24/19 09:00 11/25/19 21:25 Coreg PO 12.5 mg BID DOLLY Administration Cefdinir 300 mg 11/25/19 21:00 11/25/19 21:25 Omnicef PO 300 mg BID DOLLY Administration Docusate Sodium 100 mg 11/21/19 21:00 11/25/19 21:25 Colace PO 100 mg BID DOLLY Administration Fondaparinux 7.5 mg 11/20/19 09:00 11/25/19 09:31 Arixtra SC 7.5 mg DAILY DOLLY Administration Guaifenesin 600 mg 11/24/19 21:00 11/25/19 21:25 Mucinex PO 600 mg BID DOLLY Administration Megestrol Acetate 400 mg 11/20/19 09:00 11/25/19 09:25 Megace PO 400 mg DAILY DOLLY Administration Pantoprazole Sodium 40 mg 11/20/19 09:00 11/25/19 09:29 Protonix PO 40 mg DAILY DOLLY Administration Polyethylene Glycol 17 gm 11/21/19 10:48 11/23/19 09:16 Miralax PO 17 gm DAILYPRN PRN Administration Constipation Potassium Chloride 20 meq 11/24/19 08:00 11/26/19 08:40 K-Dur PO Not Given QAM-WM DOLLY Prednisone 40 mg 11/25/19 08:00 11/25/19 09:29 Prednisone PO 40 mg QAM-WM DOLLY Administration Senna/Docusate Sodium 2 tab 11/19/19 12:58 11/22/19 08:52 Senokot S PO 2 tab BIDPRN PRN Administration Constipation Sertraline HCl 50 mg 11/20/19 09:00 11/25/19 09:30 Zoloft PO 50 mg DAILY DOLLY Administration - Exam General Appearance: NAD, awake alert ENT: normocephalic atraumatic, moist mucosa Neck: supple, no JVD, no lymphadenopathy Heart: RRR, no murmur, no gallops, no rubs, diminshed peripheral pulses Respiratory: no wheezes, normal chest expansion Respiratory - other findings: Crackles to bilateral lower lungs Gastrointestinal: soft, non-tender, non-distended, normal bowel sounds Extremities: no edema Hosp A/P (1) SOB (shortness of breath) Code(s): R06.02 - SHORTNESS OF BREATH Status: Acute (2) Acute respiratory disorder in immunocompromised patient Code(s): J06.9 - ACUTE UPPER RESPIRATORY INFECTION, UNSPECIFIED; D89.9 - DISORDER INVOLVING THE IMMUNE MECHANISM, UNSPECIFIED Status: Acute (3) 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 will hold discharge for now.
--- NOTE | 2019-11-26 14:16 | PRG ---
DATE OF SERVICE: 11/26/2019 SUBJECTIVE: The patient is sleeping in bed. Her daughter is at the bedside. OBJECTIVE: VITAL SIGNS: Her O2 saturations running in the low 90s on 2 L, pulse 99, blood pressure 127/84. HEENT: Remarkable for alopecia. NECK: No JVD. LUNGS: She has wide mildly diffuse crackles best heard posteriorly. CARDIAC: S1 and S2. Regular. ABDOMEN: Soft. EXTREMITIES: No edema. LABORATORY DATA: No new labs obtained today. ASSESSMENT: Pneumonia versus interstitial pneumonitis versus drug effect for chemotherapy. PLAN: Continue steroids and antibiotics. I will keep her in the hospital until at least tomorrow. She is going to need home oxygen at the time of discharge. She will need to see me in the office in 2 to 3 weeks after discharge. Job ID: [id number]
[2019-11-26] MEDS: Benzonatate 100 MG CAP PO PRN (20:31)
[2019-11-27] MEDS: Budesonide 0.5 MG/2 ML NEB INH SCH (06:53)
[2019-11-27 08:27] VITALS: TEMP 98.7
[2019-11-27] MEDS: predniSONE 20 MG TAB PO SCH (08:30)
[2019-11-27] MEDS: Cefdinir 300 MG CAP PO SCH (08:31)
[2019-11-27] MEDS: Megestrol Acetate 800 MG/20 ML UDCUP PO SCH (08:31)
[2019-11-27] MEDS: Potassium Chloride 20 MEQ TAB PO SCH (08:31)
[2019-11-27] MEDS: Docusate 100 MG CAP PO SCH (08:31)
[2019-11-27] MEDS: Furosemide 20 MG TAB PO SCH (08:32)
[2019-11-27] MEDS: guaiFENesin ER 600 MG TAB PO SCH (08:32)
[2019-11-27] MEDS: Carvedilol 6.25 MG TAB PO SCH (08:35)
[2019-11-27 08:36] VITALS: BP 127/84
--- NOTE | 2019-11-27 09:51 | PRG ---
DATE OF SERVICE: 11/27/2019 SUBJECTIVE: The patient feels better and wants to go home. OBJECTIVE: VITAL SIGNS: Temperature 98.7, pulse rate 84, respirations are 20, O2 saturation was 78% on room air, oxygen saturation 96% on 3 L nasal cannula, and blood pressure 127/84. HEENT: Unremarkable. NECK: No adenopathy or JVD. LUNGS: Inspiratory crackles bilaterally. CARDIAC: S1 and S2. Regular. ABDOMEN: Soft. EXTREMITIES: No edema. ASSESSMENT: The patient is presenting with pneumonia. I think that there is a reasonable chance that this is not infectious in nature and may be secondary to the Rituxan she received for chemotherapy. Her hypoxemia has persisted despite adequate treatment with antibiotics and I think we are just left with waiting this out. She needs to be sent home on home oxygen. I have asked her to follow up in about 3 weeks. I would give her a total 10 days of antibiotics between hospital and home and also would taper her steroids over a period of about 2 weeks. She is to follow up with me in 3 to 4 weeks. Job ID: [id number]
[2019-11-27] MEDS: ALPRAZolam 0.5 MG TAB PO PRN (12:17)
--- NOTE | 2019-11-27 23:04 | DIS ---
DATE OF ADMISSION: 11/19/2019 DATE OF DISCHARGE: 11/27/2019 DISCHARGE DIAGNOSES: As of the following; 1. Shortness of breath and acute hypoxic respiratory failure, most likely secondary to pneumonia versus pneumonitis. 2. Diffuse large B-cell lymphoma of the head. 3. Hypokalemia. 4. Sepsis, most likely secondary to pneumonia. 5. Moderate calorie protein malnutrition. 6. Urinary tract infection. HOSPITAL COURSE: The patient is a 73-year-old female, who initially presented to the hospital on 11/18 with complaints of shortness of breath. At this time, the patient was also found to be hypotensive and was given some IV fluids and was treated for pneumonia. The patient underwent a CTA, which did not indicate any acute pulmonary embolism, just indicated areas of interstitial thickening and ground-glass opacities seen throughout the lungs diffusely with increased from prior exam. She also had some mediastinal lymphadenopathy previously, which had improved . She underwent an echocardiogram, which indicated an EF of 50% to 55%, with some mild mitral and mild tricuspid regurgitation. The patient was seen by Pulmonary and also by Oncology. She continued to improve through the hospital stay. She was put on initially on IV antibiotics and IV steroids, which was tapered to oral antibiotics and oral steroids. The patient's culture also indicated that she had an E. coli, which was resistant to Levaquin and Cipro, which was; however, sensitive to the third generation cephalosporins. The patient at this time was put on Omnicef. She will be discharged home. She will follow up with her Primary and also with Pulmonology. The daughter is at the bedside. She was made aware of it. Also, I have discontinued some of most of her blood pressure medications since she has been running very low blood pressures. MEDICATIONS: Her home medications will be; 1. Tessalon Perles as needed. 2. Budesonide 0.5 b.i.d. 3. Carvedilol 6.25 twice a day. 4. Omnicef 300 mg twice a day. 5. Ipratropium as needed. 6. Florastor 250 mg daily. 7. Prednisone taper. 8. Fondaparinux 7.5 mg subcu daily. 9. Sertraline 50 mg daily. 10. Alprazolam 0.25 p.o. t.i.d. 11. Lidocaine patch. 12. Nystatin as needed. 13. . PHYSICAL EXAMINATION: VITAL SIGNS: On discharge; temperature of 98.7, heart rate 84, respiratory rate 20, O2 saturations 96% on 2.5 L, and blood pressure 118/65. GENERAL: She is awake, alert, and oriented x3. Does not appear in distress. CV: S1 and S2 present. No murmurs, rubs, or gallops. LUNGS: She has some mild crackles to the right lower lungs. ABDOMEN: Soft and nontender. Bowel sounds are present x2. Again, she will also require oxygen at home about 2 to 3 L, which she has been set up with. She is a high risk for rebound given her extensive lung disease. I have told the family to make sure she follows up with the primary in about a week and also check her pulse ox and also to encourage her to eat more calories. Job ID: [id number]
[2019-11-28 00:08] LABS: L.pneumophilia Abs <0.91 OD ratio (0.00-0.90)
[2019-11-28 00:36] LABS: Mycoplasma pneumoniae IgG AB Less than 100 U/mL (0-99); Mycoplasma pneumoniae IgM AB Less than 770 U/mL (0-769)
--- NOTE | 2019-11-28 13:19 | EKG ---
Test Reason : Blood Pressure : / mmHG Vent. Rate : 060 BPM Atrial Rate : 060 BPM P-R Int : 142 ms QRS Dur : 080 ms QT Int : 478 ms P-R-T Axes : -15 024 027 degrees QTc Int : 478 ms Normal sinus rhythm Normal ECG No previous ECGs available Confirmed by DR. Manas LPOEZ MD ([id number]) on 11/28/2019 1:18:27 PM Referred By: SANJAY Confirmed By:DR. Manas LOPEZ MD
== END 2019-11-27 13:15 | disposition home or self-care (01) | DRG 871 ==
LOC: ONC 11:17 → INTOOBSV 12:58 → OBSVTOIN 12:58 → IMCU/EMU 14:44 → ONC 11-21 11:47
PROVIDERS: ADMIT Internal Medicine Hematology & Oncology; ATTEND Family Medicine
PROC: 30233N1 Transfusion of Nonautologous Red Blood Cells into Peripheral Vein, Percutaneous Approach (ICD-10-PCS; principal; 2019-11-20)
DX: A41.51 Sepsis due to Escherichia coli [E. coli] (principal); J96.01 Acute respiratory failure with hypoxia; J18.9 Pneumonia, unspecified organism; C83.31 Diffuse large B-cell lymphoma, lymph nodes of head, face, and neck; E44.1 Mild protein-calorie malnutrition; N39.0 Urinary tract infection, site not specified; E87.6 Hypokalemia; I08.1 Rheumatic disorders of both mitral and tricuspid valves; Z20.828 Contact with and (suspected) exposure to other viral communicable diseases; I10 Essential (primary) hypertension; F32.9 Major depressive disorder, single episode, unspecified; F41.9 Anxiety disorder, unspecified; D64.81 Anemia due to antineoplastic chemotherapy; T45.1X5A Adverse effect of antineoplastic and immunosuppressive drugs, initial encounter; M06.9 Rheumatoid arthritis, unspecified; Z90.710 Acquired absence of both cervix and uterus; Z79.01 Long term (current) use of anticoagulants; Z79.52 Long term (current) use of systemic steroids; Z79.899 Other long term (current) drug therapy; Z68.21 Body mass index [BMI] 21.0-21.9, adult
CPT/HCPCS: 36415; 36430; 36600; 71045; 71046; 71275; 80048; 80053; 80202; 81001; 82248; 83615; 83735; 83880; 84100; 84484; 84550; 85025; 85652; 86140; 86713; 86850; 86900; 86901; 87040; 87077; 87086; 87186; 87449; 87635; 93005; 93010; 93306; 94640; J0692; J1642; J1652; J1940; J2920; J3370; J3475; J3490; J7050; J7512; J7620; J7626; P9016; P9047; Q9967; U0003

== ENCOUNTER 2019-12-04 10:48 | Outpatient (CLI) | payer OTHER, MEDICARE ==
--- NOTE | 2019-12-04 11:27 | RAD ---
EXAM: Chest 2 views: HISTORY: Dyspnea COMPARISON: 11/22/2019 FINDINGS: There is a normal-sized cardiomediastinal silhouette. The Mediport is unchanged in position. Diffuse mixed multifocal opacities are seen in the lungs, unchanged. No pleural effusion is seen. No acute osseous abnormality. IMPRESSION: Stable exam
== END 2019-12-04 10:49 | disposition home or self-care (01) ==
LOC: BICRAD 10:48
PROVIDERS: ATTEND Internal Medicine Critical Care Medicine
DX: R06.00 Dyspnea, unspecified (principal)
CPT/HCPCS: 36415; 71046; 80053; 83615; 85025; 87449

== ENCOUNTER 2019-12-06 22:13 | Inpatient (IN) | payer OTHER, MEDICARE ==
[~2019-12-06 22:13] MED LIST changes: -Acetaminophen 500 MG TAB PO PRN; +Iopamidol 370 76% 100 ML VIAL ONE; -Sodium Chloride 0.9% 20 ML ONE; -Sodium Chloride 0.9% 500 ML IV SCH; -diphenhydrAMINE 25 MG CAP PO PRN
[2019-12-06 23:04] LABS: #Eosinphils 0.2 thou/uL (0.0-0.7); #Lymphocytes 1.8 thou/uL (1.20-3.40); #Monocytes 0.3 thou/uL (0.11-0.59); #Neutrophils 15.4 thou/uL (1.40-6.50); %Basophils 0.1 % (0.0-1.0); %Eosinophils 1.1 % (0.0-10.0); %Monocytes 1.9 % (0.0-10.0); %Neutrophils 86.8 % (42.0-75.0); Hemoglobin 14.4 g/dL (12.0-16.0); Mean Corpuscular HGB CONC 32.7 g/dL (32.0-36.0); Mean Corpuscular Hemoglobin 31.1 pg (27.0-31.0); Mean Platelet Volume 8.5 fL (7.4-10.4); Platelet Count 165 thou/uL (130-400); RBC Distribution Width 16.6 % (11.5-14.5); Red Blood Cell (RBC) Count 4.62 mill/uL (4.20-5.40); White Blood Cell (WBC) Count 17.7 thou/uL (4.8-10.8)
[2019-12-06 23:19] LABS: ALT (SGPT) 29 U/L (8-55); AST (SGOT) 21 U/L (5-34); Albumin 3.7 g/dL (3.4-4.8); Alkaline Phosphatase 85 U/L (40-110); Anion Gap 15 mmol/L (10-20); BUN (Urea Nitrogen) 19 mg/dL (9.8-20.1); Bilirubin, Total 0.5 mg/dL (0.2-1.2); Calc. Creatinine Clearance 0 mL/min (70-130); Carbon Dioxide 20 mmol/L (23-31); Chloride 105 mmol/L (98-107); Estimated GFR-MDRD 62; Globulin 2.8 g/dL (2.4-3.5); Glucose 133 mg/dL (83-110); Potassium 4.6 mmol/L (3.5-5.1); Protein, Total 6.5 g/dL (6.0-8.3); Sodium 135 mmol/L (136-145)
--- NOTE | 2019-12-06 23:25 | RAD ---
Portable frontal chest radiograph: 12/06/2019 COMPARISON: 11/22/2019 HISTORY: Abdominal pain, difficulty breathing FINDINGS: Coarse increased linear interstitial densities are again noted diffusely, slightly improved when compared to the 11/22/2019 exam. Superimposed mild bilateral diffuse groundglass opacity noted, improved as well. Heart and mediastinal contours are stable. Stable right-sided CT injectable Port-A- Cath. No lobar consolidation or alveolar edema. No pneumothorax. IMPRESSION: Nonspecific diffuse interstitial opacities/groundglass opacity, improved when compared to most recent prior imaging.
[2019-12-06 23:41] LABS: CKMB 2.9 ng/mL (0-6.6)
[2019-12-07 00:34] LABS: Bacteria/HPF None Seen HPF (None Seen); Bilirubin Negative (Negative); Blood, Urine Negative (Negative); Clarity Clear (Clear); Glucose, Urine (Dipstick) Normal (Negative); Ketone, Urine Negative (Negative); Leukocyte 25 Leu/uL (Negative); Nitrite Negative (Negative); Protein, Urine (Dipstick) 10 mg/dL (Neg-Trace); RBC/HPF 0-3 HPF (0-3); Specific Gravity, Urine 1.021 (1.002-1.036); Squamous Epithelial 0-3 HPF (0-3); Transitional Epithelial 0-3 HPF (None Seen); Urobilinogen Normal mg/dL (Less than 2); pH, Urine 6.5 (5.0-9.0)
[2019-12-07] MEDS ORDERED: WATER IVPB SCH (01:15)
[2019-12-07] MEDS ORDERED: SULFAMETHOXAZOLE IVPB SCH (01:15)
[2019-12-07] MEDS ORDERED: TRIMETHOPRIM IVPB SCH (01:15)
[2019-12-07] MEDS ORDERED: DEXTROSE 5% IVPB SCH (01:15)
[2019-12-07 01:58] LABS: Troponin I 0.108 ng/mL (< 0.028)
--- NOTE | 2019-12-07 03:09 | PDOC.HHP ---
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 Patient was recently admitted at this hospital from 11/18 to 11/26 of this year for respiratory failure, was discharged on home O2, was doing well on 3.5-4LPM of O2 for some time, however began to become more dyspneic and today presented to ED with visible increased work of breathing and tachypnea, requiring 4L by NC. During this recent admission 2 weeks ago, patient was diagnosed with pneumonia which was suspected to be secondary to rituximab, but is now suspected to be due to pneumocystis, patient is on PO bactrim and follows with Dr Copeland of pulmona ry medicine. imaging in ED revealed bilateral ground glass opacities, improved from previous imaging studies. Dr Copeland saw patient in ED and recommended admission for IV bactrim given slow improvement as outpatient on PO therapy. Other notable findings in ED include TnI of 0.107, patient denies chest pain/palpitations/syncope. WBC are 17.7. Vitals afebrile, hemodynamically stable. She was complaining of abdominal pain on arrival, CT A/P concerning for urinary retention and full bladder, ochoa placed with improvement of symptoms and significant urinary retention. Patient sees Dr Castanon for lymphoma, last chemotherapy was in October of this year, completed 4 rounds chemotherapy. Chemo is to be held until patient recovers per most recent oncology progress note last admission. Hospitalist ROS - Review of Systems Constitutional: denies: fever, chills, sweats, weakness, malaise, other Eyes: denies: pain, vision change, conjunctivae inflammation, eyelid inflammation, redness, other ENT: denies: ear pain, ear discharge, nose pain, nose discharge, nose congestion, mouth pain, mouth swelling, throat pain, throat swelling, other Respiratory: reports: shortness of breath. denies: cough, dry, hemoptysis, SOB with excertion, pleuritic pain, sputum, wheezing, other Cardiovascular: denies: chest pain, palpitations, orthopnea, paroxysmal noc. dyspnea, edema, light headedness, other Gastrointestinal: denies: nausea, vomiting, abdominal pain, diarrhea, constipation, melena, hematochezia, other Genitourinary: denies: dysuria, frequency, incontinence, hematuria, retention, other Musculoskeletal: denies: neck pain, shoulder pain, arm pain, back pain, hand pain, leg pain, foot pain, other Skin: denies: rash, lesions, willy, bruising, other Neurological: denies: weakness, numbness, incoordination, change in speech, confusion, seizures, other All other systems reviewed; all pertinent +/- noted in HPI/Subj - Medication Medications: carvedilol TueDec 07, 2019 01:21 TIMOTHY Tran Jt tablet : Strength - 3.125 mg : ORAL Patient Dose: Unknown.DOSE UNK. predniSONE TueDec 07, 2019 01:21 TIMOTHY Tran Jt tablet : Strength - 1 mg : ORAL Patient Dose: Unknown.DOSE UNK. ALPRAZolam TueDec 07, 2019 01:21 TIMOTHY Tran Jt tablet : Strength - 0.25 mg : ORAL Patient Dose: Unknown.DOSE UNK. [place] TueDec 07, 2019 01:23 TIMOTHY Tran Jt tablet : Strength - 5 mg-325 mg : ORAL Patient Dose: Unknown.DOSE UNK. Lovenox TueDec 07, 2019 01:23 TIMOTHY Tran Jt solution : Strength - 30 mg/0.3 mL : SUBCUTANEOUS Patient Dose: Unknown.DOSE UNK. Hospitalist History - Past Medical History Heme/Onc: reports: no pertinent history Hepatobiliary: reports: no pertinent history Psych: reports: no pertinent history Renal/: reports: UTI Other Medical History: lymphoma suspected pneumocystis pneumonia HTN - Past Surgical History Past Surgical History: reports: Cystoscopy, Hysterectomy - Family History Family History: reports: no pertinent history - Social History Alcohol: reports: None Drugs: reports: none - Exam General Appearance: NAD, awake alert Eye: PERRL, anicteric sclera ENT: normocephalic atraumatic, no oropharyngeal lesions, moist mucosa Neck: supple, symmetric, no JVD, no thyromegaly, no lymphadenopathy, no carotid bruit Heart: RRR, no murmur, no gallops, no rubs, normal peripheral pulses Respiratory: CTAB, no wheezes, no rales, no ronchi, normal chest expansion, no tachypnea, normal percussion Gastrointestinal: soft, non-tender, non-distended, normal bowel sounds, no palpable masses, no hepatomegaly, no splenomegaly, no bruit Extremities: no cyanosis, no clubbing, no edema Skin: normal turgor, no lesions, no rashes Neurological: cranial nerve grossly intact, normal sensation to touch, no weakness, no focal deficits, no new deficit Musculoskeletal: normal tone, normal strength, no muscle wasting Psychiatric: normal affect, normal behavior, A&O x 3 Hospitalist Results - Labs Result Diagrams: 12/06/19 22:36 12/06/19 22:36 Lab results: WBC 17.7 thou/uL (4.8-10.8) H 12/06/19 22:36 Hgb 14.4 g/dL (12.0-16.0) 12/06/19 22:36 Hct 43.9 % (36.0-47.0) 12/06/19 22:36 MCV 95.0 fL (78.0-98.0) 12/06/19 22:36 Plt Count 165 thou/uL (130-400) 12/06/19 22:36 Neutrophils % 86.8 % (42.0-75.0) H 12/06/19 22:36 Sodium 135 mmol/L (136-145) L 12/06/19 22:36 Potassium 4.6 mmol/L (3.5-5.1) 12/06/19 22:36 Chloride 105 mmol/L (98-107) 12/06/19 22:36 Carbon Dioxide 20 mmol/L (23-31) L 12/06/19 22:36 BUN 19 mg/dL (9.8-20.1) 12/06/19 22:36 Creatinine 0.89 mg/dL (0.6-1.1) 12/06/19 22:36 Glucose 133 mg/dL (83-110) H 12/06/19 22:36 Calcium 9.0 mg/dL (7.8-10.44) 12/06/19 22:36 Total Bilirubin 0.5 mg/dL (0.2-1.2) 12/06/19 22:36 AST 21 U/L (5-34) 12/06/19 22:36 ALT 29 U/L (8-55) 12/06/19 22:36 Alkaline Phosphatase 85 U/L (40-110) 12/06/19 22:36 CK-MB (CK-2) 2.9 ng/mL (0-6.6) 12/06/19 22:36 Troponin I 0.108 ng/mL (< 0.028) H 12/07/19 01:27 Serum Total Protein 6.5 g/dL (6.0-8.3) 12/06/19 22:36 Albumin 3.7 g/dL (3.4-4.8) 12/06/19 22:36 Urine Ketones Negative mg/dL (Negative) 12/06/19 23:56 Urine Blood Negative (Negative) 12/06/19 23:56 Urine Nitrite Negative (Negative) 12/06/19 23:56 Ur Leukocyte Esterase 25 Liliana/uL (Negative) A 12/06/19 23:56 Urine RBC 0-3 HPF (0-3) 12/06/19 23:56 Urine WBC 4-6 HPF (0-3) A 12/06/19 23:56 Ur Squamous Epith Cells 0-3 HPF (0-3) 12/06/19 23:56 Urine Bacteria None Seen HPF (None Seen) 12/06/19 23:56 Additional comment: VITAL SIGNS Fri Dec 07, 2019 01:19 TIMOTHY Tran, Jt BP: 119/69 Pulse: 89 Resp: 20 Pain: 0 O2 sat: 99 on (3L Oxygen) Time: 12/07/2019 01:19. 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 # pneumocystic pneumonia # respiratory distress # acute and chronic respiratory failure # sepsis due to pneumonia Patient was recently admitted at this hospital from 11/18 to 11/26 of this year for respiratory failure, pneumonia, was discharged on home O2, became more dyspneic and today presented to ED with increased work of breathing and tachypnea. p neumonia currently suspected to be due to pneumocystis, patient is on PO bactrim and follows with Dr Copeland of pulmonary medicine. imaging in ED revealed bilateral ground glass opacities, improved from previous imaging studies. Dr Copeland saw patient in ED and recommended admission for IV bactrim given slow improvement as outpatient on PO therapy. - admit to floor - start IV bactrim 15 mg/kg/day divided in 3 doses per day, discussed dosing with pharmacist - start IV steroids - continue omnicef - consult pulmonary Dr Copeland - continue home inhalers, start scheduled and PRN duonebs - follow up covid test results # B cell lymphoma - patient sees Dr Castanon for lymphoma, last chemotherapy was in October of this year, completed 4 rounds chemotherapy. Chemo is to be held until patient recovers per most recent oncology progress note last admission. # elevated troponin - no chest pain, suspect this is due to hypoxia, trend troponin - recent echo this month showed preserved EF and mild valve disease # urinary retention - no new medications besides bactrim, continue ochoa and attempt weaning trial once clinically improved # DVT/GI ppx
[2019-12-07] MEDS ORDERED: Furosemide 20 MG TAB PO PRN (03:24)
[2019-12-07] MEDS ORDERED: Loratadine 10 MG TAB PO PRN (03:24)
[2019-12-07] MEDS ORDERED: cloNIDine 0.1 MG TAB PO PRN (03:25)
[2019-12-07] MEDS ORDERED: Ondansetron PF 4 MG/2 ML Vial IVP PRN (03:25)
[2019-12-07] MEDS ORDERED: Labetalol HCl 100 MG/20 ML VIAL SLOW IVP PRN (03:25)
[2019-12-07] MEDS ORDERED: Promethazine HCl 12.5 MG in Sodium Chloride 0.9% 50 ML IVPB PRN (03:25)
[2019-12-07] MEDS ORDERED: hydrALAZINE 20 MG/ML VIAL SLOW IVP PRN (03:25)
[2019-12-07] MEDS ORDERED: Electrolyte Replacement Protoc 1 EACH EACH FS SCH (03:30)
[2019-12-07] MEDS ORDERED: Acetaminophen 500 MG TAB PO PRN (03:32)
[2019-12-07 05:23] LABS: Troponin I 0.108 ng/mL (< 0.028)
[2019-12-07] MEDS: methylPREDNISolone Sod Succ/PF 125 MG/2 ML VIAL IVP SCH ×3 (06:28→21:08)
[2019-12-07] MEDS ORDERED: Magnesium 2 GM/50 ML 2 GM in Premix Bag 1 BAG IVPB SCH (06:45)
[2019-12-07] MEDS ORDERED: Electrolyte Replacement Protocol FS PRN (06:45)
[2019-12-07] MEDS: Budesonide 0.5 MG/2 ML NEB NEB SCH ×2 (07:25→18:36)
--- NOTE | 2019-12-07 07:58 | CT ---
PRELIMINARY REPORT/[facility]/EMERGENCY AFTER HOURS PROCEDURE: EXAM: CT Abdomen and Pelvis with Intravenous Contrast CLINICAL HISTORY: LOWER ABDOMINAL PAIN, PAIN WITH URINATION; Surgical history of hysterectomy TECHNIQUE: Axial computed tomography images of the abdomen and pelvis with intravenous contrast. CONTRAST: With; ISOVUE 370. 90ML COMPARISON: CTSR - CT ABDOMEN PELVIS W WO CON - 10/05/2018 08:56 AM CDT FINDINGS: LUNG BASES: Diffuse bibasilar reticular and groundglass opacities. LIVER: Unremarkable. GALLBLADDER AND BILE DUCTS: Unremarkable. No calcified stone. No ductal dilation. PANCREAS: Unremarkable. SPLEEN: Unremarkable. ADRENAL GLANDS: Unremarkable. KIDNEYS, URETERS, AND BLADDER: Unremarkable. Multiple hypodensities in the renal pelves likely repre sent parapelvic cysts. No hydronephrosis or nephrolithiasis. No ureteral or bladder calculi. STOMACH AND BOWEL: Small hiatal hernia. No obstruction. No wall thickening. Scattered colonic diver ticuli. No CT evidence of colitis or acute diverticulitis. APPENDIX: No CT evidence for appendicitis. PERITONEUM: No free fluid. No free air. LYMPH NODES: No lymphadenopathy. REPRODUCTIVE: Uterus is surgically absent. No suspicious adnexal mass. VASCULATURE: No aortic aneurysm. Scattered atherosclerotic vascular calcifications of the aorta and branching vessels. BONES: No fracture or suspicious osseous abnormality. Moderate multilevel degenerative changes of th e lumbar spine most pronounced at L2-3. ABDOMINAL WALL AND SOFT TISSUES: Unremarkable. IMPRESSION: 1. No acute intra-abdominal or pelvic abnormality. 2. No urolithiasis or obstructive uropathy. Multiple bilateral renal parapelvic cysts. 3. Bibasilar interstitial and groundglass opacities suggestive of chronic interstitial lung disease. 4. Small hiatal hernia. ELECTRONICALLY SIGNED BY: Cy Lion DO Dec 07, 2019 12:46:22 AM CDT FINAL REPORT CT ABDOMEN AND PELVIS WITH IV CONTRAST: I agree with the preliminary report given by Dr. Cy Lion of [facility]. Transcribed Date/Time: 12/07/2019 8:50 AM
[2019-12-07] MEDS: Cefdinir 300 MG CAP PO SCH ×2 (09:16→21:10)
[2019-12-07] MEDS: Carvedilol 6.25 MG TAB PO SCH ×2 (09:16→21:10)
[2019-12-07] MEDS: Polyethylene Glycol 3350 17 GM Packet PO SCH (09:17)
[2019-12-07] MEDS: WATER IVPB SCH ×2 (10:14→18:26)
[2019-12-07] MEDS: SULFAMETHOXAZOLE IVPB SCH ×2 (10:14→18:26)
[2019-12-07] MEDS: DEXTROSE 5% IVPB SCH ×2 (10:14→18:26)
[2019-12-07] MEDS: TRIMETHOPRIM IVPB SCH ×2 (10:14→18:26)
[2019-12-07 12:50] LABS: SARS-CoV-2 MS2 Positive; SARS-CoV-2 N Gene Negative; SARS-CoV-2 S Gene Negative; SARS-CoV-2 by NAA Not Detected (NotDetected); SARS-CoV-2 orf1ab Negative
--- NOTE | 2019-12-07 13:53 | CON ---
DATE OF CONSULTATION: 12/07/2019 CONSULTING PHYSICIAN: [facility] REASON FOR CONSULTATION: Pneumonia. HISTORY OF PRESENT ILLNESS: Ms. Pimentel'jameel case is well known to me. She is a 73-year-old, who I was initially consulted on November 19. She presented at that time with diffuse pulmonary infiltrates. She has a history of B-cell lymphoma, which apparently is aggressive. She had just been treated with Adriamycin, Cytoxan, vincristine, and Rituxan. She had developed pancytopenia from that chemo. At that time, she was treated with broad-spectrum IV antibiotics and steroids, was hypoxic, but got better to the point where she went home on oxygen. She presented to my office earlier this week as Dr. Castanon had requested that we re-evaluate the patient quickly, because she thought the patient will be needing chemo in the near future. The patient at that time complained of continued shortness of breath. X-ray showed persistent infiltrates without improvement. I discussed the prospect of bronchoscopy, BAL, and open lung biopsy with the patient. She refused any aggressive procedure, but was agreeable for empiric treatment of Pneumocystis pneumonia. She was already taking prednisone. I put her on Bactrim 2 tablets three times daily. I am told she only took one dose of that in the span of 3 days. She was brought to the hospital last night with abdominal pain. It turns out she had a grossly distended bladder, which was relieved by Gallardo catheter placement. I was up seeing someone else in the hospital last night and I went to see her and she surprisingly did not look to be in any distress. They repeated her x-ray and it looked better from a film taken earlier in the week. PAST MEDICAL HISTORY: 1. Large B-cell lymphoma originating in the neck. 2. Hypertension. PAST SURGICAL HISTORY: 1. Hysterectomy. 2. MediPort placement. SOCIAL HISTORY: Nonsmoker. Does not consume alcohol. REVIEW OF SYSTEMS: Remarkable for some abdominal pain, shortness of breath, dry cough. MEDICATIONS: Prior to admission, reviewed, see chart. ALLERGIES: NONE. PHYSICAL EXAMINATION: VITAL SIGNS: O2 saturation 92% on 3 L, temperature 96.6, pulse 95, blood pressure 111/56. HEENT: Unremarkable. NECK: No adenopathy or JVD. LUNGS: She has inspiratory crackles bilaterally. CARDIAC: S1, S2. Regular without audible murmur. ABDOMEN: Soft and nontender to palpation. EXTREMITIES: No clubbing, cyanosis, or edema. DIAGNOSTIC DATA: An echocardiogram obtained last admission showed EF 50% to 55% with some mild mitral regurgitation. LABORATORY DATA: Current labs; white blood cell count 17.7, hematocrit 43.9, and platelet count 165. Sodium 135, potassium 4.6, chloride 105, CO2 of 20, BUN 19, creatinine 0.8, glucose 133, troponin 0.108. Urinalysis shows some leukocyte esterase. An LDH that was obtained through my office was elevated at 439. I also sent off a Fungitell assay. The result was below the detectable limit. ASSESSMENT AND PLAN: Current x-ray shows diffuse alveolar/ground-glass infiltrative changes, which have waxed and waned since before she was diagnosed with the large cell lymphoma. I went back on films to June 2019, which showed infiltrates on both sides in some shape, form or fashion. My initial thought was this is probably some nonspecific interstitial pneumonitis and may be related to her lymphoma. I doubt she has bacterial pneumonia, but I cannot completely rule out the possibility of Pneumocystis pneumonia, given her chronic corticosteroid use and chemotherapy. My recommendation would be to go ahead and continue to treat her with IV Bactrim for the next several days. Continue the steroids. I broached the subject of bronchoalveolar lavage and lung biopsy with the patient again. She refused to proceed with any aggressive procedures. Overall, I think this situation may not be reparable, but we will give her a few days and see how she does. Job ID: [id number]
[2019-12-07] MEDS ORDERED: Calcium Carbonate 500 MG ChewTAB PO PRN (15:06)
[2019-12-07] MEDS: Senokot 8.6 MG TAB PO SCH (15:47)
[2019-12-07] MEDS: ALPRAZolam 0.25 MG TAB PO PRN (18:36)
[2019-12-07] MEDS ORDERED: Enoxaparin Sodium 40 MG/0.4 ML SYRINGE SC SCH (21:00)
[2019-12-07] MEDS: Enoxaparin Sodium 60 MG/0.6 ML SYRINGE SC SCH (21:09)
[2019-12-07] MEDS: Benzonatate 100 MG CAP PO PRN (21:10)
[2019-12-07] MEDS: Melatonin 3 MG TAB PO PRN (23:28)
[2019-12-08] MEDS: DEXTROSE 5% IVPB SCH ×3 (02:54→18:00)
[2019-12-08] MEDS: WATER IVPB SCH ×3 (02:54→18:00)
[2019-12-08] MEDS: SULFAMETHOXAZOLE IVPB SCH ×3 (02:54→18:00)
[2019-12-08] MEDS: TRIMETHOPRIM IVPB SCH ×3 (02:54→18:00)
[2019-12-08 05:37] LABS: Anion Gap 14 mmol/L (10-20); BUN (Urea Nitrogen) 20 mg/dL (9.8-20.1); Calc. Creatinine Clearance 48 mL/min (70-130); Carbon Dioxide 17 mmol/L (23-31); Chloride 105 mmol/L (98-107); Estimated GFR-MDRD 62; Glucose 225 mg/dL (83-110); Magnesium 1.9 mg/dL (1.6-2.6); Sodium 131 mmol/L (136-145)
[2019-12-08 05:42] LABS: #Eosinphils 0.1 thou/uL (0.0-0.7); #Monocytes 0.2 thou/uL (0.11-0.59); #Neutrophils 11.2 thou/uL (1.40-6.50); %Basophils 0.1 % (0.0-1.0); %Eosinophils 0.5 % (0.0-10.0); %Lymphocytes 8.3 % (21.0-51.0); %Monocytes 1.2 % (0.0-10.0); %Neutrophils 89.8 % (42.0-75.0); Mean Corpuscular HGB CONC 32.5 g/dL (32.0-36.0); Mean Corpuscular Hemoglobin 30.6 pg (27.0-31.0); Mean Corpuscular Volume 94.3 fL (78.0-98.0); Mean Platelet Volume 8.8 fL (7.4-10.4); Platelet Count 129 thou/uL (130-400); RBC Distribution Width 16.5 % (11.5-14.5); Red Blood Cell (RBC) Count 3.58 mill/uL (4.20-5.40); White Blood Cell (WBC) Count 12.5 thou/uL (4.8-10.8)
[2019-12-08] MEDS: methylPREDNISolone Sod Succ/PF 125 MG/2 ML VIAL IVP SCH ×3 (05:48→21:11)
[2019-12-08] MEDS ORDERED: Magnesium 2 GM/50 ML 2 GM in Premix Bag 1 BAG IVPB SCH (06:45)
[2019-12-08] MEDS: Budesonide 0.5 MG/2 ML NEB NEB SCH ×2 (08:25→18:09)
[2019-12-08] MEDS: Carvedilol 6.25 MG TAB PO SCH ×2 (09:18→21:12)
[2019-12-08] MEDS: Cefdinir 300 MG CAP PO SCH ×2 (09:18→21:12)
[2019-12-08] MEDS: Polyethylene Glycol 3350 17 GM Packet PO SCH (09:19)
[2019-12-08] MEDS: Enoxaparin Sodium 60 MG/0.6 ML SYRINGE SC SCH ×2 (09:19→21:11)
[2019-12-08] MEDS: ALPRAZolam 0.25 MG TAB PO PRN ×3 (09:24→21:19)
--- NOTE | 2019-12-08 12:56 | PDOC.HOSPP ---
- Subjective Encounter Date: 12/08/19 Encounter Time: 10:20 Subjective: Patient sitting in the bed. She appears quite in a respiratory distress with mild exertion even talking seems to put her at short of breath. daughter at bedside and discussed care plan with her. - Objective Vital Signs & Weight: Vital Signs (12 hours) Temp Pulse Resp BP Pulse Ox 12/08/19 11:31 87 20 12/08/19 08:25 82 24 H 12/08/19 08:00 97.4 F L 84 17 115/62 95 12/08/19 04:00 98.4 F 93 25 H 131/62 100 Weight Admit Weight 121 lb 12.8 oz Weight 121 lb 1.6 oz I&O: 12/07/19 12/08/19 12/09/19 06:59 06:59 06:59 Intake Total 750 980 480 Output Total 1275 700 650 Balance -525 280 -170 Result Diagrams: 12/08/19 04:46 12/08/19 04:46 Hospitalist ROS - Medication Medications: Active Medications Generic Name Dose Route Start Last Admin Trade Name Freq PRN Reason Stop Dose Admin Albuterol/Ipratropium 3 ml 12/07/19 07:00 12/08/19 11:31 Ipratropium/Albuterol Sulfate 3 Ml Neb NEB 3 ml [id number] DOLLY Administration Alprazolam 0.25 mg 12/07/19 03:24 12/08/19 09:24 Alprazolam 0.25 Mg Tab PO 0.25 mg TID PRN Administration Anxiety Benzonatate 100 mg 12/07/19 03:24 12/07/19 21:10 Benzonatate 100 Mg Cap PO 100 mg TIDPRN PRN Administration Cough Budesonide 0.5 mg 12/07/19 06:30 12/08/19 08:25 Budesonide 0.5 Mg/2 Ml Neb NEB 0.5 mg BID-RT DOLLY Administration Calcium Carbonate 1,000 mg 12/07/19 15:06 12/07/19 15:47 Calcium Carbonate 500 Mg Chewtab PO 1,000 mg Q4H PRN Administration Heartburn or Indigestion Carvedilol 6.25 mg 12/07/19 09:00 12/08/19 09:18 Carvedilol 6.25 Mg Tab PO 6.25 mg BID DOLLY Administration Cefdinir 300 mg 12/07/19 09:00 12/08/19 09:18 Cefdinir 300 Mg Cap PO 300 mg BID DOLLY Administration Enoxaparin Sodium 60 mg 12/07/19 21:00 12/08/19 09:19 Enoxaparin Sodium 60 Mg/0.6 Ml Syringe SC 60 mg 0900,2100 DOLLY Administration Trimethoprim/Sulfamethoxazole 500 mls @ 333.333 mls/hr 12/07/19 10:00 12/08/19 11:24 270 mg/ Dextrose/Water IVPB 500 mls 0200,1000,1800 DOLLY Administration Melatonin 6 mg 12/07/19 21:34 12/07/19 23:28 Melatonin 3 Mg Tab PO 6 mg HS PRN Administration Insomnia Methylprednisolone Sodium Succinate 60 mg 12/07/19 06:00 12/08/19 05:48 Methylprednisolone Sod Succ/Pf 125 Mg/2 Ml Vial IVP 60 mg Q8HR DOLLY Administration Pantoprazole Sodium 40 mg 12/07/19 09:00 12/08/19 09:18 Pantoprazole 40 Mg Tab PO 40 mg DAILY DOLLY Administration Polyethylene Glycol 17 gm 12/07/19 09:00 12/08/19 09:19 Polyethylene Glycol 3350 17 Gm Packet PO 17 gm DAILY DOLLY Administration Senna 2 tab 12/07/19 15:15 12/07/19 15:47 Senokot 8.6 Mg Tab PO 2 tab HSPRN DOLLY Administration Sertraline HCl 50 mg 12/07/19 09:00 12/08/19 09:18 Sertraline Hcl 25 Mg Tab PO 50 mg DAILY DOLLY Administration - Exam General Appearance: ill appearing General - other findings: Confused Eye: PERRL ENT: normocephalic atraumatic Neck: supple Heart: RRR Respiratory: CTAB, normal chest expansion Gastrointestinal: soft, normal bowel sounds Extremities - other findings: Mild bleeding around the IV access site. 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 # pneumocystic pneumonia # acute and chronic respiratory failure # sepsis due to pneumonia, POA -unwilling to pursue bronchoscopic evaluation and biopsy due to the high risk of requirement for mechanical ventilation - start IV bactrim 15 mg/kg/day divided in 3 doses per day, discussed dosing with pharmacist - start IV steroids--meth==60 q 8 - pulmonary Dr Copeland following - continue home inhalers, start scheduled and PRN duonebs - follow up covid test results-------------> negative # B cell lymphoma - patient sees Dr Castanon for lymphoma, last chemotherapy was in October of this year, completed 4 rounds chemotherapy. Chemo is to be held until patient recovers per onc.. # elevated troponin -NSTEMI type II metabolic mismatch trend troponin - recent echo this month showed preserved EF and mild valve disease # urinary retention - no new medications besides bactrim, continue ochoa and attempt weaning trial once clinically improved # on Arixtra for DVT. Will change her to therapeutic dose Lovenox while she is here.
--- NOTE | 2019-12-08 14:08 | EKG ---
Test Reason : Blood Pressure : / mmHG Vent. Rate : 099 BPM Atrial Rate : 099 BPM P-R Int : 132 ms QRS Dur : 072 ms QT Int : 362 ms P-R-T Axes : 024 -17 108 degrees QTc Int : 464 ms Normal sinus rhythm Left ventricular hypertrophy with repolarization abnormality Abnormal ECG Confirmed by JAYDEN AMEZCUA ([id number]), fashion editor MIKE DÍAZ ([id number]) on 12/08/2019 2:08:05 PM Referred By: Confirmed By:JAYDEN AMEZCUA
[2019-12-08] MEDS: Senokot 8.6 MG TAB PO SCH (17:58)
--- NOTE | 2019-12-08 18:57 | PRG ---
DATE OF SERVICE: 12/08/2019 PRESENT ILLNESS: She continues to have significant breathlessness and is on 4 L nasal cannula. At this level, she has difficulty getting more than to the bedside commode. She is not producing any sputum. She has a history of B-cell lymphoma, treated with a regimen of Adriamycin, Cytoxan, vincristine, and Rituxan. She had pancytopenia, treated with broad-spectrum antibiotics, at which time she developed hypoxia. Her x-ray has not improved and discussion was held regarding definitive evaluation via bronchoscopy with lavage and biopsy. At that time, the patient refused bronchoscopy due to the very high risk of respiratory failure necessitating ventilatory support. She was treated empirically with antibiotic therapy for Pneumocystis and was on prednisone. She has subsequently been admitted to the intensive care unit. Her symptoms have not really dramatically improved. The question remains as to the process within the lung and the best mechanism of diagnosis and treatment. PHYSICAL EXAMINATION: VITAL SIGNS: Blood pressure 124/64, pulse ox is 96% on 4 L. She is afebrile. Heart rate is 97. GENERAL: She is fairly dyspneic at rest and in conversation. She has no palpable cervical adenopathy. LUNGS: Reveal bilateral crackles, but no wheezes. HEART: Regular rate and rhythm. ABDOMEN: Soft. There is no organomegaly. EXTREMITIES: She has trace ankle edema. LABORATORY DATA: White count 12,500, hemoglobin is 11 with hematocrit 33.8, and platelet count of 129,000. Chemistry remarkable for sodium 131, potassium 5, CO2 of 17, BUN 20, and creatinine 0.9. Chest x-ray shows faint interstitial pattern, which is about the same as admission given significant differences in technique. IMPRESSION: 1. B-cell lymphoma, previously treated with chemotherapy, which was discontinued due to leukocytosis, worsening shortness of breath and presumed infection. 2. Abnormal chest x-ray. 3. History of chronic obstructive pulmonary disease. PLAN: I have again reviewed the situation with the patient and her daughter. In the absence of ability/willingness to do an invasive biopsy, our treatment is exclusively supportive and driven by symptoms. She is receiving steroids and antibiotics as well as breathing treatments. I am not sure that seeing an another occupancy specialist will allow definition of the cause in the absence of a diagnostic procedure. There has been some conversation about going to [place] to see a kennel supervisor at [employer]. I have encouraged them to continue to receive their care through [facility] and there lung doctors as it provides a consistent line of communication and access to medical record. At this point, she is too breathless to go home and the next soonest available appointment is about 10 days. Hopefully by then, she will begin to improve with the treatments we have rendered. Job ID: [id number]
[2019-12-08] MEDS: Benzonatate 100 MG CAP PO PRN (21:12)
[2019-12-08] MEDS: Guaifenesin DM 100-10/5 ML UDCUP PO PRN (23:43)
[2019-12-09] MEDS: SULFAMETHOXAZOLE IVPB SCH ×3 (02:30→18:06)
[2019-12-09] MEDS: DEXTROSE 5% IVPB SCH ×3 (02:30→18:06)
[2019-12-09] MEDS: WATER IVPB SCH ×3 (02:30→18:06)
[2019-12-09] MEDS: TRIMETHOPRIM IVPB SCH ×3 (02:30→18:06)
[2019-12-09] MEDS: methylPREDNISolone Sod Succ/PF 125 MG/2 ML VIAL IVP SCH ×3 (05:06→21:11)
[2019-12-09] MEDS: Budesonide 0.5 MG/2 ML NEB NEB SCH ×2 (08:44→18:09)
[2019-12-09] MEDS: Enoxaparin Sodium 60 MG/0.6 ML SYRINGE SC SCH ×2 (09:57→21:11)
[2019-12-09] MEDS: Carvedilol 6.25 MG TAB PO SCH ×2 (09:57→21:10)
[2019-12-09] MEDS: Cefdinir 300 MG CAP PO SCH ×2 (09:57→21:07)
[2019-12-09] MEDS: Polyethylene Glycol 3350 17 GM Packet PO SCH (09:57)
[2019-12-09] MEDS: Benzonatate 100 MG CAP PO PRN ×3 (10:47→23:08)
[2019-12-09] MEDS: Guaifenesin DM 100-10/5 ML UDCUP PO PRN ×2 (10:47→21:11)
--- NOTE | 2019-12-09 12:32 | PDOC.HOSPP ---
- Subjective Encounter Date: 12/09/19 Encounter Time: 10:30 Subjective: More than 20 minutes spent today explaining care plan. Patient is quite confused about her etiology for shortness of breath. Either lymphoma or interstitial pneumonitis. I think now she understands after lengthy conversati on with her and daughter that she may need to follow-up with her information technology associate at [facility] in [place]. She does have an appointment and coming up within 10 days. She is still short of breath even with lengthy conversation. Lungs still have ongoing crackles. - Objective Vital Signs & Weight: Vital Signs (12 hours) Temp Pulse Resp BP Pulse Ox 12/09/19 08:44 102 H 24 H 12/09/19 03:32 98.1 F 87 16 138/61 94 L Weight Admit Weight 121 lb 12.8 oz Weight 121 lb 11.2 oz I&O: 12/08/19 12/09/19 12/10/19 06:59 06:59 06:59 Intake Total 980 1800 Output Total 700 3050 Balance 280 -1250 Result Diagrams: 12/08/19 04:46 12/08/19 04:46 Hospitalist ROS - Medication Medications: Active Medications Generic Name Dose Route Start Last Admin Trade Name Freq PRN Reason Stop Dose Admin Albuterol/Ipratropium 3 ml 12/07/19 07:00 12/09/19 08:44 Ipratropium/Albuterol Sulfate 3 Ml Neb NEB 3 ml [id number] DOLLY Administration Alprazolam 0.25 mg 12/07/19 03:24 12/08/19 21:19 Alprazolam 0.25 Mg Tab PO 0.25 mg TID PRN Administration Anxiety Benzonatate 100 mg 12/07/19 03:24 12/09/19 10:47 Benzonatate 100 Mg Cap PO 100 mg TIDPRN PRN Administration Cough Budesonide 0.5 mg 12/07/19 06:30 12/09/19 08:44 Budesonide 0.5 Mg/2 Ml Neb NEB 0.5 mg BID-RT DOLLY Administration Calcium Carbonate 1,000 mg 12/07/19 15:06 12/07/19 15:47 Calcium Carbonate 500 Mg Chewtab PO 1,000 mg Q4H PRN Administration Heartburn or Indigestion Carvedilol 6.25 mg 12/07/19 09:00 12/09/19 09:57 Carvedilol 6.25 Mg Tab PO 6.25 mg BID DOLLY Administration Cefdinir 300 mg 12/07/19 09:00 12/09/19 09:57 Cefdinir 300 Mg Cap PO 300 mg BID DOLLY Administration Enoxaparin Sodium 60 mg 12/07/19 21:00 12/09/19 09:57 Enoxaparin Sodium 60 Mg/0.6 Ml Syringe SC 60 mg 0900,2100 DOLLY Administration Guaifenesin/Dextromethorphan 15 ml 12/07/19 03:25 12/09/19 10:47 Guaifenesin Dm 100-10/5 Ml Udcup PO 15 ml Q4H PRN Administration Cough Trimethoprim/Sulfamethoxazole 500 mls @ 333.333 mls/hr 12/07/19 10:00 12/09/19 10:53 270 mg/ Dextrose/Water IVPB 500 mls 0200,1000,1800 DOLLY Administration Melatonin 6 mg 12/07/19 21:34 12/07/19 23:28 Melatonin 3 Mg Tab PO 6 mg HS PRN Administration Insomnia Methylprednisolone Sodium Succinate 60 mg 12/07/19 06:00 12/09/19 05:06 Methylprednisolone Sod Succ/Pf 125 Mg/2 Ml Vial IVP 60 mg Q8HR DOLLY Administration Pantoprazole Sodium 40 mg 12/07/19 09:00 12/09/19 09:57 Pantoprazole 40 Mg Tab PO 40 mg DAILY DOLLY Administration Polyethylene Glycol 17 gm 12/07/19 09:00 12/09/19 09:57 Polyethylene Glycol 3350 17 Gm Packet PO 17 gm DAILY DOLLY Administration Senna 2 tab 12/07/19 15:15 12/08/19 17:58 Senokot 8.6 Mg Tab PO 2 tab HSPRN DOLLY Administration Sertraline HCl 50 mg 12/07/19 09:00 12/09/19 09:57 Sertraline Hcl 25 Mg Tab PO 50 mg DAILY DOLLY Administration - Exam General Appearance: NAD, awake alert, ill appearing Eye: PERRL ENT: normocephalic atraumatic Neck: supple Heart: RRR Respiratory: normal chest expansion, rales, rhonchi, tachypneic Gastrointestinal: soft, normal bowel sounds Neurological: no focal deficits Psychiatric: A&O x 3 Hosp A/P - Plan 73 year old female with 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 # pneumocystic pneumonia # acute and chronic respiratory failure # sepsis due to pneumonia, POA -unwilling to pursue bronchoscopic evaluation and biopsy due to the high risk of requirement for mechanical ventilation - start IV bactrim 15 mg/kg/day divided in 3 doses per day, discussed dosing with pharmacist - start IV steroids--meth==60 q 8 - pulmonary Dr Copeland following - continue home inhalers, start scheduled and PRN duonebs - follow up covid test results-------------> negative # B cell lymphoma - patient sees Dr Castanon for lymphoma, last chemotherapy was in October of this year, completed 4 rounds chemotherapy. Chemo is to be held until patient recovers per onc.. # elevated troponin -NSTEMI type II metabolic mismatch trend troponin - recent echo this month showed preserved EF and mild valve disease # urinary retention - no new medications besides bactrim, continue ochoa and attempt weaning trial once clinically improved # on Arixtra for DVT. Will change her to therapeutic dose Lovenox while she is here. 19th More than 20 minutes spent today explaining care plan. Patient is quite c onfused about her etiology for shortness of breath. Either lymphoma or interstitial pneumonitis. I think now she understands after lengthy conversation with her and daughter that she may need to follow-up with her information technology associate at [facility] in [place]. She does have an appointment and coming up within 10 days. Pulmonary rehab plan discussed. She prefers to go home and she states that she is able to walk around at home with oxygen. She has a spouse at home -probable home health when we are ready to discharge her. -Pending pulmonology clearance. -Dr. Copeland likely be here tomorrow. Will change her IV antibiotic, bactrim and IV steroid to p.o. prior to discharge.
[2019-12-09] MEDS: ALPRAZolam 0.25 MG TAB PO PRN ×2 (13:34→23:08)
--- NOTE | 2019-12-09 16:19 | PRG ---
DATE OF SERVICE: 12/09/2019 SUBJECTIVE: Ms. Pimentel continues on oxygen at 4 L nasal cannula. She is quite breathless in conversation. She still has her Gallardo and has not been engaged in a regular therapy program. She still wants to try to go home and I think this is reasonable, assuming that we can get her to a relatively safe status. She denies cough or sputum, fevers or chills. PHYSICAL EXAMINATION: VITAL SIGNS: Blood pressure 143/61. She is afebrile. Pulse ox 91% on 4 L. GENERAL: She is moderately dyspneic with shallow efforts and short sentence length. LUNGS: Showed diffuse crackles without wheezes. HEART: Regular rate and rhythm. Distant S1 and S2. ABDOMEN: Soft. EXTREMITIES: She has no edema. LABORATORY DATA: None today. IMPRESSION: B-cell lymphoma, now with interstitial prominence of unclear cause. Differential diagnosis would include pneumonitis secondary to medications, lymphangitic tumor, atypical infection. PLAN: She will continue with current therapy. I have discontinued her Gallardo, and we will get her seen by Physical Therapy. She would ideally like to go home and I have encouraged her to follow up with the oncologists and other services at [facility], where she has received her care. Job ID: [id number]
[2019-12-10] MEDS: TRIMETHOPRIM IVPB SCH ×2 (02:47→09:43)
[2019-12-10] MEDS: DEXTROSE 5% IVPB SCH ×2 (02:47→09:43)
[2019-12-10] MEDS: SULFAMETHOXAZOLE IVPB SCH ×2 (02:47→09:43)
[2019-12-10] MEDS: WATER IVPB SCH ×2 (02:47→09:43)
[2019-12-10] MEDS: methylPREDNISolone Sod Succ/PF 125 MG/2 ML VIAL IVP SCH (05:21)
[2019-12-10] MEDS: Budesonide 0.5 MG/2 ML NEB NEB SCH ×2 (06:36→19:31)
[2019-12-10] MEDS: Cefdinir 300 MG CAP PO SCH (08:00)
[2019-12-10] MEDS: Carvedilol 6.25 MG TAB PO SCH ×2 (08:00→21:05)
[2019-12-10] MEDS: Polyethylene Glycol 3350 17 GM Packet PO SCH (08:03)
[2019-12-10 08:12] LABS: #Lymphocytes 0.6 thou/uL (1.20-3.40); #Monocytes 0.5 thou/uL (0.11-0.59); %Eosinophils 0.2 % (0.0-10.0); %Lymphocytes 3.5 % (21.0-51.0); %Monocytes 3.3 % (0.0-10.0); %Neutrophils 92.9 % (42.0-75.0); Hemoglobin 13.5 g/dL (12.0-16.0); Mean Corpuscular HGB CONC 31.8 g/dL (32.0-36.0); Mean Corpuscular Hemoglobin 29.9 pg (27.0-31.0); Mean Platelet Volume 8.2 fL (7.4-10.4); Platelet Count 167 thou/uL (130-400); RBC Distribution Width 16.3 % (11.5-14.5); Red Blood Cell (RBC) Count 4.53 mill/uL (4.20-5.40); White Blood Cell (WBC) Count 16.1 thou/uL (4.8-10.8)
[2019-12-10] MEDS: Enoxaparin Sodium 60 MG/0.6 ML SYRINGE SC SCH (08:29)
[2019-12-10 08:31] LABS: Anion Gap 17 mmol/L (10-20); BUN (Urea Nitrogen) 26 mg/dL (9.8-20.1); Calc. Creatinine Clearance 40 mL/min (70-130); Calcium 8.9 mg/dL (7.8-10.44); Carbon Dioxide 17 mmol/L (23-31); Chloride 101 mmol/L (98-107); Estimated GFR-MDRD 50; Glucose 171 mg/dL (83-110); Potassium 6.4 mmol/L (3.5-5.1); Sodium 129 mmol/L (136-145)
[2019-12-10] MEDS ORDERED: Dextrose 50% Abboject 50 ML SYRINGE SLOW IVP PRN (09:19)
[2019-12-10] MEDS ORDERED: Dextrose 5% in Water 1,000 ML IV PRN (09:19)
[2019-12-10] MEDS ORDERED: Insulin Regular 300 UNITS/3 ML VIAL SC PRN (09:19)
[2019-12-10] MEDS ORDERED: Insulin Regular 300 UNITS/3 ML VIAL SC SCH ×2 (09:30→10:30)
[2019-12-10 09:55] LABS: Hemoglobin 12.7 g/dL (12.0-16.0); Platelet Count 151 thou/uL (130-400)
--- NOTE | 2019-12-10 11:01 | PRG ---
DATE OF SERVICE: 12/10/2019 SUBJECTIVE: Angeline Pimentel is a patient with B-cell lymphoma, respiratory failure. She was doing well. She is still weak. short of breath. OBJECTIVE: VITAL SIGNS: Temperature 97, pulse 90, sats 4 L, blood pressure 145/81. CHEST: No wheezing. No crackles. CARDIAC: Normal S1, S2. No gallops. ABDOMEN: Soft. LABORATORY DATA: White count 16,000. Creatinine is normal. Sodium 124, potassium 6.4. All cultures are negative. IMPRESSION: Large B-cell lymphoma originating in the neck, hypertension, respiratory failure, severe deconditioning. She was started empirically on Pneumocystis antibiotic. Though she refused to get a lavage study done as per Dr. Copeland, I am going to get input from a primary oncology. Otherwise, supportive care, antibiotics. Job ID: [id number]
--- NOTE | 2019-12-10 11:53 | RAD ---
EXAM: CHEST ONE VIEW HISTORY: Interstitial lung disease COMPARISON: 12/06/2019 and 11/22/2019 FINDINGS: Right-sided Mediport catheter remains in place. The cardiac silhouette remains mildly enlarged. There are increased interstitial opacities throughout the lungs bilaterally which are overall similar to the prior study given differences in technique. No consolidation or pleural fluid is seen. Mild eleva tion left hemidiaphragm is again seen.. No other interval change. IMPRESSION: Persistent and overall diffuse interstitial opacities within the lungs bilaterally which is overall n onspecific. Findings could be related to persistent infectious process; however, chronic interstitial lung changes is a possibility.
--- NOTE | 2019-12-10 12:37 | PDOC.HOSPP ---
- Subjective Encounter Date: 12/10/19 Encounter Time: 11:00 Subjective: Patient had a large blood clot in the stool. She finally had some bowel movement. She states that she was straining may be that is the reason she got some blood clot. she is also satting 93% with oxygen. I stopped the Lovenox. Put her on Protonix. She also acknowledges that she is not improving much since admission. I have consulted the palliative this weekend who will be evaluating her pretty soon. Patient also has a high potassium probably due to blood clot per rectum. Spouse at bedside - Objective Vital Signs & Weight: Vital Signs (12 hours) Temp Pulse Pulse Pulse Resp BP BP 12/10/19 11:31 98.0 F 83 24 H 12/10/19 10:38 63 24 H 12/10/19 09:59 71 132/62 12/10/19 09:42 81 71 132/62 12/10/19 07:46 97.5 F L 90 20 12/10/19 06:36 12/10/19 06:33 94 24 H 12/10/19 03:01 98.3 F 86 18 BP BP Pulse Ox 12/10/19 11:31 131/62 91 L 12/10/19 10:38 90 L 12/10/19 09:59 167/71 H 12/10/19 09:42 167/71 H 12/10/19 07:46 145/81 H 90 L 12/10/19 06:36 93 L 12/10/19 06:33 89 L 12/10/19 03:01 134/63 97 Weight Admit Weight 121 lb 12.8 oz Weight 121 lb 11.2 oz I&O: 12/09/19 12/10/19 12/11/19 06:59 06:59 06:59 Intake Total 1800 1680 Output Total 3050 3050 Balance -1250 -1370 Result Diagrams: 12/10/19 09:42 12/10/19 07:52 Additional Labs: Accuchecks 12/10/19 11:08 POC Glucose 241 H Hospitalist ROS - Medication Medications: Active Medications Generic Name Dose Route Start Last Admin Trade Name Freq PRN Reason Stop Dose Admin Albuterol/Ipratropium 3 ml 12/07/19 07:00 12/10/19 10:38 Ipratropium/Albuterol Sulfate 3 Ml Neb NEB 3 ml [id number] DOLLY Administration Alprazolam 0.25 mg 12/07/19 03:24 12/09/19 23:08 Alprazolam 0.25 Mg Tab PO 0.25 mg TID PRN Administration Anxiety Benzonatate 100 mg 12/07/19 03:24 12/09/19 23:08 Benzonatate 100 Mg Cap PO 100 mg TIDPRN PRN Administration Cough Budesonide 0.5 mg 12/07/19 06:30 12/10/19 06:36 Budesonide 0.5 Mg/2 Ml Neb NEB 0.5 mg BID-RT DOLLY Administration Calcium Carbonate 1,000 mg 12/07/19 15:06 12/07/19 15:47 Calcium Carbonate 500 Mg Chewtab PO 1,000 mg Q4H PRN Administration Heartburn or Indigestion Carvedilol 6.25 mg 12/07/19 09:00 12/10/19 08:00 Carvedilol 6.25 Mg Tab PO 6.25 mg BID DOLLY Administration Guaifenesin/Dextromethorphan 15 ml 12/07/19 03:25 12/09/19 21:11 Guaifenesin Dm 100-10/5 Ml Udcup PO 15 ml Q4H PRN Administration Cough Melatonin 6 mg 12/07/19 21:34 12/07/19 23:28 Melatonin 3 Mg Tab PO 6 mg HS PRN Administration Insomnia Polyethylene Glycol 17 gm 12/07/19 09:00 12/10/19 08:03 Polyethylene Glycol 3350 17 Gm Packet PO Not Given DAILY DOLLY Senna 2 tab 12/07/19 15:15 12/08/19 17:58 Senokot 8.6 Mg Tab PO 2 tab HSPRN DOLLY Administration Sertraline HCl 50 mg 12/07/19 09:00 12/10/19 08:00 Sertraline Hcl 25 Mg Tab PO 50 mg DAILY DOLLY Administration Sodium Chloride 10 ml 12/10/19 09:00 12/10/19 09:44 Flush - Normal Saline 10 Ml Syringe IVF 10 ml Q12HR DOLLY Administration Sodium Polystyrene Sulfonate 30 gm 12/10/19 09:15 12/10/19 09:55 Sodium Polystyrene Sulfonate 15 Gm/60 Ml Bot PO 12/10/19 14:00 30 gm NOW DOLLY Administration - Exam General Appearance: NAD, awake alert, ill appearing Eye: PERRL ENT: normocephalic atraumatic Neck: supple Heart: RRR, normal peripheral pulses Respiratory: normal chest expansion, rales, rhonchi, tachypneic Gastrointestinal: soft, normal bowel sounds Neurological: no focal deficits Psychiatric: A&O x 3 Hosp A/P - Plan 73 year old female with PMH nasopharyngeal large B cell lymphoma s/p 4 rounds c hemotherapy who presents to ED for worsening shortness of breath. # pneumocystic pneumonia # acute and chronic respiratory failure # sepsis due to pneumonia, POA -unwilling to pursue bronchoscopic evaluation and biopsy due to the high risk of requirement for mechanical ventilation - start IV bactrim 15 mg/kg/day divided in 3 doses per day, discussed dosing with pharmacist - start IV steroids--meth==60 q 8 - pulmonary Dr Copeland following - continue home inhalers, start scheduled and PRN duonebs - follow up covid test results-------------> negative # B cell lymphoma - patient sees Dr Castanon for lymphoma, last chemotherapy was in October of this year, completed 4 rounds chemotherapy. Chemo is to be held until patient recovers per onc.. # elevated troponin -NSTEMI type II metabolic mismatch trend troponin - recent echo this month showed preserved EF and mild valve disease # urinary retention - no new medications besides bactrim, continue ochoa and attempt weaning trial once clinically improved # on Arixtra for DVT. Will change her to therapeutic dose Lovenox while she is here. 20th More than 20 minutes spent today explaining care plan. Patient is quite confused about her etiology for shortness of breath. Either lymphoma or interstitial pneumonitis. I think now she understands after lengthy conversation with her and daughter that she may need to follow-up with her pul parking lot supervisor at [facility] in [place]. She does have an appointment and coming up within 10 days. Pulmonary rehab plan discussed. She prefers to go home and she states that she is able to walk around at home with oxygen. She has a spouse at home -probable home health when we are ready to discharge her. -Pending pulmonology clearance. -Dr. Copeland likely be here tomorrow. Will change her IV antibiotic, bactrim and IV steroid to p.o. prior to discharge. Blood clot per rectum She states that she was straining may be that is the reason she got some blood clot. -stopped the Lovenox. Put her on Protonix. -Repeat H&H. Has current hemoglobin is 12.7 defer consulting GI at this time. Debilitation, worsening functional status due to lymphoma and associated pulmonary dysfunction. -she is not improving much since admission. I have consulted the palliative this weekend who will be evaluating her pretty soon. Hyperkalemia-- high potassium probably due to blood clot per rectum -Kayexalate 1 dose -Low-dose insulin; will check the potassium level this evening. Hyperglycemia--patient is not diabetic her blood glucose is in going in the 200 range due to IV steroid -Initiated a sliding scale insulin. Appreciate pulmonary input, Dr. Lopez is following today. IV steroid and IV Bactrim discontinued and switched to p.o. Today.
[2019-12-10] MEDS: ALPRAZolam 0.25 MG TAB PO PRN ×2 (14:12→21:05)
[2019-12-10 16:51] LABS: Potassium 6.2 mmol/L (3.5-5.1)
[2019-12-10 17:26] LABS: Hemoglobin 14.2 g/dL (12.0-16.0); Platelet Count 170 thou/uL (130-400)
[2019-12-10] MEDS: Melatonin 3 MG TAB PO PRN (21:05)
[2019-12-10] MEDS: Benzonatate 100 MG CAP PO PRN (21:05)
[2019-12-10] MEDS: Sulfameth/Trimethoprim DS 800-160mg TAB PO SCH (21:05)
[2019-12-10] MEDS: Pantoprazole 40 MG VIAL IVP SCH (21:06)
--- NOTE | 2019-12-10 21:14 | CON ---
DATE OF CONSULTATION: REASON FOR CONSULTATION: Lymphoma. HISTORY OF PRESENT ILLNESS: Ms. 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 She has activated B-cell subtype with no evidence of double hit on FISH. She underwent four cycles of R-CHOP. She was diagnosed with pneumonitis after cycle 4. She has become oxygen dependent secondary to hypoxia and shortness of breath. She has been followed by Dr. Copeland, who has offered to do bronchoscopy; however, the patient has concerns regarding mechanical ventilation with this procedure. She has been on antibiotics for PCP pneumonia and steroids for pneumonitis with no improvement. She remains on 4 to 5 L of nasal cannula and gets extremely short of breath with ambulation. The patient presented to the emergency room on December 06 for progressive shortness of breath. She was readmitted and started on IV antibiotics. She has had no improvement since arrival. The patient was seen at bedside with daughter present. She is in mild respiratory distress, but her oxygen saturation is 95% on 5 L. She has no chest pain, no abdominal discomfort. She has been having constipation, but had a bowel movement today with apparent blood clot in her stool. She has no history of GI bleed. However, she is on Arixtra for DVT, originally diagnosed in May of 2019. PAST MEDICAL HISTORY: 1. Stage III high-grade B-cell lymphoma. 2. Pneumonitis of unknown etiology. 3. History of left lower extremity DVT. 4. Anxiety and depression. 5. Rheumatoid arthritis. 6. Hypertension. PAST SURGICAL HISTORY: 1. Hysterectomy. 2. Excisional biopsy of cervical lymph nodes. 3. Nasopharyngeal endoscopy with biopsy. 4. MediPort placement. ALLERGIES: NO KNOWN DRUG ALLERGIES. CURRENT MEDICATIONS: 1. Hyden. 2. Xanax. 3. Tessalon Perles. 4. Pulmicort nebs. 5. Coreg. 6. Catapres p.r.n. 7. Protonix. 8. MiraLAX. 9. Prednisone 40 mg daily. 10. Zoloft. 11. Bactrim DS. FAMILY HISTORY: Noncontributory. SOCIAL HISTORY: , has 4 children. Lives with her spouse. No alcohol, tobacco, or illicit drug use. REVIEW OF SYSTEMS: A 10-point review of systems is negative except for noted in HPI. PHYSICAL EXAMINATION: VITAL SIGNS: Temperature 98.0, pulse is 93, respiratory rate 24, BP is 131/62. She is 91% on 4 L. GENERAL: Chronically ill-appearing female, in mild respiratory distress. HEENT: Normocephalic and atraumatic. Pupils are equal and reactive to light. NECK: Supple. CV: Regular rate and rhythm. LUNGS: Clear. ABDOMEN: Soft and nontender. Bowel sounds are positive. EXTREMITIES: No clubbing or cyanosis. SKIN: No rash. HEMATOLOGICAL: No petechiae or purpura. NEUROLOGIC: Nonfocal. PERTINENT LABORATORY DATA AND X-RAYS: Current WBCs are 16.1, hemoglobin 12.7, hematocrit 39.8, platelet count is 151,000, 92% neutrophils, 3% lymphocytes. Sodium 129, potassium 6.4, chloride 101, CO2 of 17, BUN is 26, creatinine 1.07, calcium 8.9, bilirubin 0.5, AST is 21, ALT is 29, alkaline phosphatase is 85. CK-MB is 2.9, troponin 0.108. Serum total protein 6.5, albumin , globulin 2.8. COVID negative. Chest x-ray shows persistent interstitial opacities in the lungs bilateral. ASSESSMENT: 1. Pneumonitis of unknown etiology. 2. B-cell lymphoma. DISCUSSION: The patient has been referred to Oncological Pulmonary Group at [facility] in [place]. She unfortunately has continued to worsen during her hospital stay. She likely needs an open lung biopsy, which is not available at this hospital. We will recommend transferring to [facility] in [place]. If possible, to see Dr. Lay or Dr. Young. Case has been discussed in detail with Dr. Castanon. I will initiate transfer. Thank you for the consult. Job ID: [id number]
[2019-12-11] MEDS: Budesonide 0.5 MG/2 ML NEB NEB SCH (06:41)
[2019-12-11] MEDS: HYDROcodone/Acetaminophen 5/325 mg Tablet PO PRN (09:20)
[2019-12-11] MEDS: predniSONE 20 MG TAB PO SCH (09:21)
[2019-12-11] MEDS: ALPRAZolam 0.25 MG TAB PO PRN ×2 (09:21→20:41)
[2019-12-11] MEDS: Carvedilol 6.25 MG TAB PO SCH ×2 (09:21→20:40)
[2019-12-11] MEDS: Sulfameth/Trimethoprim DS 800-160mg TAB PO SCH (09:21)
[2019-12-11] MEDS: Polyethylene Glycol 3350 17 GM Packet PO SCH (09:23)
[2019-12-11] MEDS: Pantoprazole 40 MG VIAL IVP SCH (09:23)
[2019-12-11] MEDS ORDERED: Sodium Chloride 0.9% 1,000 ML IV SCH (10:15)
--- NOTE | 2019-12-11 10:16 | PRG ---
DATE OF SERVICE: 12/11/2019 SUBJECTIVE: This morning, she is awake, alert, responsive. She is still weak. She is less short of breath. Her x-ray yesterday still shows the bilateral infiltrates, but less pronounced. Potassium is 6.2, probably from the Bactrim. OBJECTIVE: VITAL SIGNS: Temperature 97, pulse 105, respiratory rate 24, sats are 91% on 4 L. CHEST: Minimal crackles. CARDIAC: Normal S1, S2. No gallops. ABDOMEN: No masses. IMPRESSION: 1. Unknown interstitial lung disease. 2. B-cell lymphoma. 3. Respiratory failure. PLAN: The patient and family have requested to be transferred to [place] to see an interventional pulmonary physician for lung biopsy. She can be transferred at any time. In the meantime, I will leave her on empiric steroids and Bactrim. Job ID: [id number]
[2019-12-11 10:38] LABS: Hemoglobin 13.2 g/dL (12.0-16.0); Mean Corpuscular Hemoglobin 30.4 pg (27.0-31.0); Mean Corpuscular Volume 92.2 fL (78.0-98.0); Mean Platelet Volume 8.5 fL (7.4-10.4); Platelet Count 146 thou/uL (130-400); RBC Distribution Width 16.1 % (11.5-14.5); Red Blood Cell (RBC) Count 4.34 mill/uL (4.20-5.40); White Blood Cell (WBC) Count 17.1 thou/uL (4.8-10.8)
[2019-12-11 10:45] LABS: Anion Gap 16 mmol/L (10-20); BUN (Urea Nitrogen) 32 mg/dL (9.8-20.1); Calc. Creatinine Clearance 43 mL/min (70-130); Calcium 9.2 mg/dL (7.8-10.44); Carbon Dioxide 19 mmol/L (23-31); Chloride 102 mmol/L (98-107); Estimated GFR-MDRD 54; Glucose 117 mg/dL (83-110); Magnesium 1.9 mg/dL (1.6-2.6); Potassium 4.7 mmol/L (3.5-5.1); Sodium 132 mmol/L (136-145)
[2019-12-11 10:56] LABS: Band 1 % (5-11); Lymphocytes 1 % (21-51); MDiff Complete? YES; Monocytes 7 % (0-10); Neutrophil 91 % (42-75); Platelet Morphology Comment Appears Adequate; RBC Morphology Normal
[2019-12-11] MEDS ORDERED: Magnesium 2 GM/50 ML 2 GM in Premix Bag 1 BAG IVPB SCH (12:15)
--- NOTE | 2019-12-11 12:18 | PDOC.HOSPP ---
- Subjective Encounter Date: 12/11/19 Encounter Time: 09:10 Subjective: 50 minutes spent on her care today. Try to coordinate the care for her transfer today. Talk to Dr. Lopez. Repeat potassium today normalized. Will DC the Bactrim. Switch to p.o. prednisone. She looks much calmer and stable her hemoglobin is stable no further episodes of blood in the stool. Protonix to p.o. daily. Sodium 132 much better than yesterday's 129. Gentle IV fluid. - Objective Vital Signs & Weight: Vital Signs (12 hours) Temp Pulse Resp BP Pulse Ox 12/11/19 11:44 98.3 F 105 H 19 108/60 99 12/11/19 10:22 102 H 20 91 L 12/11/19 08:00 97.3 F L 110 H 17 121/73 100 12/11/19 06:42 91 L 12/11/19 06:39 105 H 24 H 91 L 12/11/19 04:00 97.9 F 104 H 20 122/67 93 L Weight Admit Weight 121 lb 12.8 oz Weight 122 lb 9.6 oz I&O: 12/10/19 12/11/19 12/12/19 06:59 06:59 06:59 Intake Total 1680 850 Output Total 3050 300 Balance -1370 550 Result Diagrams: 12/11/19 10:16 12/11/19 10:16 Additional Labs: Accuchecks 12/10/19 17:03 POC Glucose 109 H Hospitalist ROS - Medication Medications: Active Medications Generic Name Dose Route Start Last Admin Trade Name Freq PRN Reason Stop Dose Admin Acetaminophen 500 mg 12/07/19 03:32 12/10/19 21:05 Acetaminophen 500 Mg Tab PO 500 mg Q6HR PRN Administration Pain Hydrocodone Bitart/Acetaminophen 1 tab 12/07/19 03:24 12/11/19 09:20 Hydrocodone/Acetaminophen 5/325 Mg Tablet PO 1 tab Q4HR PRN Administration Pain Albuterol/Ipratropium 3 ml 12/07/19 07:00 12/11/19 10:22 Ipratropium/Albuterol Sulfate 3 Ml Neb NEB 3 ml [id number] DOLLY Administration Alprazolam 0.25 mg 12/07/19 03:24 12/11/19 09:21 Alprazolam 0.25 Mg Tab PO 0.25 mg TID PRN Administration Anxiety Benzonatate 100 mg 12/07/19 03:24 12/10/19 21:05 Benzonatate 100 Mg Cap PO 100 mg TIDPRN PRN Administration Cough Calcium Carbonate 1,000 mg 12/07/19 15:06 12/07/19 15:47 Calcium Carbonate 500 Mg Chewtab PO 1,000 mg Q4H PRN Administration Heartburn or Indigestion Carvedilol 6.25 mg 12/07/19 09:00 12/11/19 09:21 Carvedilol 6.25 Mg Tab PO 6.25 mg BID DOLLY Administration Guaifenesin/Dextromethorphan 15 ml 12/07/19 03:25 12/09/19 21:11 Guaifenesin Dm 100-10/5 Ml Udcup PO 15 ml Q4H PRN Administration Cough Loratadine 10 mg 12/07/19 03:24 12/10/19 21:05 Loratadine 10 Mg Tab PO 10 mg DAILY PRN Administration Pain Melatonin 6 mg 12/07/19 21:34 12/10/19 21:05 Melatonin 3 Mg Tab PO 6 mg HS PRN Administration Insomnia Pantoprazole Sodium 40 mg 12/10/19 21:00 12/11/19 09:23 Pantoprazole 40 Mg Vial IVP 40 mg Q12HR DOLLY Administration Polyethylene Glycol 17 gm 12/07/19 09:00 12/11/19 09:23 Polyethylene Glycol 3350 17 Gm Packet PO Not Given DAILY DOLLY Prednisone 40 mg 12/11/19 08:00 12/11/19 09:21 Prednisone 20 Mg Tab PO 40 mg QAM-WM DOLLY Administration Senna 2 tab 12/07/19 15:15 12/08/19 17:58 Senokot 8.6 Mg Tab PO 2 tab HSPRN DOLLY Administration Sertraline HCl 50 mg 12/07/19 09:00 12/11/19 09:21 Sertraline Hcl 25 Mg Tab PO 50 mg DAILY DOLLY Administration Sodium Chloride 10 ml 12/10/19 09:00 12/11/19 09:22 Flush - Normal Saline 10 Ml Syringe IVF 10 ml Q12HR DOLLY Administration Trimethoprim/Sulfamethoxazole 1 tab 12/10/19 21:00 12/11/19 09:21 Sulfameth/Trimethoprim Ds 800-160mg Tab PO 1 tab BID DOLLY Administration - Exam General Appearance: NAD, awake alert ENT: normocephalic atraumatic Neck: supple Heart: RRR Respiratory: CTAB, normal chest expansion, rales, rhonchi Gastrointestinal: soft, normal bowel sounds Neurological: no focal deficits Hosp A/P - Plan 73 year old female with 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 # pneumocystic pneumonia # acute and chronic respiratory failure # sepsis due to pneumonia, POA -unwilling to pursue bronchoscopic evaluation and biopsy due to the high risk of requirement for mechanical ventilation - start IV bactrim 15 mg/kg/day divided in 3 doses per day, discussed dosing with pharmacist - start IV steroids--meth==60 q 8 - pulmonary Dr Copeland following - continue home inhalers, start scheduled and PRN duonebs - follow up covid test results-------------> negative # B cell lymphoma - patient sees Dr Castanon for lymphoma, last chemotherapy was in October of this year, completed 4 rounds chemotherapy. Chemo is to be held until patient recovers per onc.. # elevated troponin -NSTEMI type II metabolic mismatch trend troponin - recent echo this month showed preserved EF and mild valve disease # urinary retention - no new medications besides bactrim, continue ochoa and attempt weaning trial once clinically improved # on Arixtra for DVT. Will change her to therapeutic dose Lovenox while she is here. 20th More than 20 minutes spent today explaining care plan. Patient is quite confused about her etiology for shortness of breath. Either lymphoma or interstitial pneumonitis. I think now she understands after lengthy conversation with her and daughter that she may need to follow-up with her roll setter at [facility] in [place]. She does have an appointment and coming up within 10 days. Pulmonary rehab plan discussed. She prefers to go home and she states that she is able to walk around at home with oxygen. She has a spouse at home -probable home health when we are ready to discharge her. -Pending pulmonology clearance. -Dr. Copeland likely be here tomorrow. Will change her IV antibiotic, bactrim and IV steroid to p.o. prior to discharge. Blood clot per rectum She states that she was straining may be that is the reason she got some blood clot. -stopped the Lovenox. Put her on Protonix. -Repeat H&H. Has current hemoglobin is 12.7 defer consulting GI at this time. Debilitation, worsening functional status due to lymphoma and associated pulmonary dysfunction. -she is not improving much since admission. I have consulted the palliative this weekend who will be evaluating her pretty soon. Hyperkalemia-- high potassium probably due to blood clot per rectum -Kayexalate 1 dose -Low-dose insulin; will check the potassium level this evening. Hyperglycemia--patient is not diabetic her blood glucose is in going in the 200 range due to IV steroid -Initiated a sliding scale insulin. Appreciate pulmonary input, Dr. Lopez is following today. IV steroid and IV Bactrim discontinued and switched to p.o. Today. nd Hyperkalemia improved. Hyponatremia slight improvement will do some NS and repeat the lab tomorrow. If she is still here. Family wants her to be on appetite stimulant. Started Megace. Plan to get a lung biopsy. Initiated the transfer. Appreciate the help from oncologist Lexsu Watson.
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
[2019-12-11] MEDS: Megestrol Acetate 40 MG TAB PO SCH ×2 (16:24→20:39)
[2019-12-12 05:17] LABS: Band 1 % (5-11); Hemoglobin 12.3 g/dL (12.0-16.0); Lymphocytes 5 % (21-51); MDiff Complete? YES; Mean Corpuscular HGB CONC 32.4 g/dL (32.0-36.0); Mean Corpuscular Hemoglobin 30.1 pg (27.0-31.0); Mean Platelet Volume 9.1 fL (7.4-10.4); Monocytes 1 % (0-10); Neutrophil 93 % (42-75); Platelet Count 126 thou/uL (130-400); Platelet Morphology Comment Appears Decreased; RBC Distribution Width 16.1 % (11.5-14.5); RBC Morphology Normal; Red Blood Cell (RBC) Count 4.08 mill/uL (4.20-5.40); White Blood Cell (WBC) Count 14.3 thou/uL (4.8-10.8)
[2019-12-12] MEDS: predniSONE 20 MG TAB PO SCH (08:34)
[2019-12-12] MEDS: Megestrol Acetate 40 MG TAB PO SCH (08:34)
[2019-12-12] MEDS: Polyethylene Glycol 3350 17 GM Packet PO SCH (08:35)
[2019-12-12] MEDS: Carvedilol 6.25 MG TAB PO SCH (08:35)
[2019-12-12] MEDS: ALPRAZolam 0.25 MG TAB PO PRN (08:41)
[2019-12-12] MEDS: HYDROcodone/Acetaminophen 5/325 mg Tablet PO PRN (09:35)
--- NOTE | 2019-12-12 10:39 | PRG ---
DATE OF SERVICE: 12/12/2019 SUBJECTIVE: This morning, she says she is better. OBJECTIVE: VITAL SIGNS: Temperature 97, pulse 92, sats 97% on 5 L, and blood pressure 122/57. CHEST: No wheezing, no crackles. CARDIAC: Normal S1 and S2. No gallops. ABDOMEN: No masses. LABORATORY DATA: White count 14,000 with left shift, 19 segs, 1 band. Lytes are better. ASSESSMENT: B-cell lymphoma, abnormal chest x-ray, mild azotemia. PLAN: She needs to be transferred to [place] to see her oncologist. Pulmonary suarez, she is doing better on steroids, off antibiotics. Job ID: [id number]
[2019-12-12] MEDS ORDERED: Acetaminophen 500 MG TAB PO PRN (11:15)
[2019-12-12] MEDS ORDERED: HYDROcodone/Acetaminophen 5/325 mg Tablet PO PRN (11:15)
[2019-12-12 11:50] VITALS: BMI 20.5
[2019-12-12 13:19] VITALS: BP 124/58; TEMP 97.3
--- NOTE | 2019-12-13 11:23 | DIS ---
DATE OF ADMISSION: 12/07/2019 DATE OF DISCHARGE: 12/12/2019 DISCHARGE DIAGNOSES: 1. Probable pneumocystis pneumonia. 2. Onylu-fs-kbmuetw respiratory failure. 3. Sepsis due to pneumonia, present on admission. 4. B-cell lymphoma, followed with Dr. Castanon. Last chemo was in October of this year. Completed four rounds of chemo. 5. Urinary retention. 6. . 7. Hyperkalemia due to Bactrim use. 8. Hyperglycemia without diabetic. 9. History of deep venous thrombosis and she was on Lovenox b.i.d. dose and plan to discharge with [facility]; however, the patient is going for biopsy of the lung then she should be able to go back to [facility]. PHYSICAL EXAMINATION: VITAL SIGNS: On the day of discharge, her temperature is 97.3, pulse 94, blood pressure 124/58, satting 97% with 5 L oxygen by nasal cannula. GENERAL: Her spouse at bedside. Plan for potential transfer today. Discussed with them. They have no acute concerns at this time. Waiting to be transferred. Her labs were discussed with them. CARDIOVASCULAR: Regular rate and rhythm without murmurs. LUNGS: Clear to auscultation. Did not reveal any coarse rales, rhonchi, or wheezing. I listened both anterior as well as posterior area. She is just not taking a deep breath, but when she does, she did not have any adventitious lung sounds. ABDOMEN: Benign. CONSULTS: 1. Pulmonology with Dr. Copeland and Dr. Lopez. 2. Oncology with ABHISHEK Vasquez. HOSPITAL COURSE: This is a 73-year-old female with a history of B-cell lymphoma and unknown interstitial lung disease, respiratory failure, on chemo with four rounds completed in October of this year and found to have a pneumocystis pneumonia. She also had [id number] respiratory failure, oxygen dependent and concern for pneumocystis to be a cause. X-ray showed diffuse alveolar ground-glass infiltrate changes with waxing and waning appearance since the diagnosis of her large cell lymphoma. The films were reviewed by the refrigeration service technician that was taken in June 2019 with the infiltrate in both sites in the same shape, form, and fashion. Initial thought was nonspecific interstitial pneumonia, may be related to her lymphoma, but, however, bacterial pneumonia cannot be ruled out completely and also the possibility of Pneumocystis pneumonia, in that scenario, IV Bactrim initiated along with methylprednisolone. Bactrim switched to p.o., when we saw that potassium is going up, we discontinued her Bactrim. Switched IV steroid to prednisone as she is clinically improving; however, she is still oxygen dependent maintaining her sats above 90%. Chest x-ray showed some abnormality, difficult to discern ILD versus mass in the setting of lymphoma. she is third of blood in the stool. She was constipated and it appears that blood clot probably due to straining in the context of being on Lovenox twice daily dose. Due to the blood clot in the stool the Lovenox was on hold and she did not had any other episodes of bloody stool. Hemoglobin remained stable. She is on PPI. Since this is related to straining due to constipation we deferred doing GI work-up [endoscopic study] at this time. However hemoglobin followed closely and did not require transfusion. She will be going for pulmonary biopsy. She has been accepted at [facility]. or [facility] will be likely doing the pulmonary biopsy there. Regarding her DVT, since she is going for biopsy, her Arixtra has been on hold. She can start Arixtra 7.5 mg subcu daily 24 hours after the biopsy is completed. She is transferred today to [place]. DISCHARGE INSTRUCTIONS: Activity as tolerated. Regular diet. Follow up with PCP in 1 week. Follow up with oncologist, Dr. Castanon. Restart Arixtra 24 hours after lung biopsy. TIME SPENT: Discharge time took over 35 minutes. Job ID: [id number] [facility]
== END 2019-12-12 14:43 | disposition short-term general hospital (02) | DRG 871 ==
LOC: ERS 22:13 → 2NO 12-07 00:46
PROVIDERS: ADMIT Internal Medicine; ATTEND Internal Medicine
DX: A41.89 Other specified sepsis (principal); J96.20 Acute and chronic respiratory failure, unspecified whether with hypoxia or hypercapnia; B59 Pneumocystosis; I21.A1 Myocardial infarction type 2; C83.31 Diffuse large B-cell lymphoma, lymph nodes of head, face, and neck; J44.0 Chronic obstructive pulmonary disease with (acute) lower respiratory infection; E87.1 Hypo-osmolality and hyponatremia; Z20.828 Contact with and (suspected) exposure to other viral communicable diseases; F41.9 Anxiety disorder, unspecified; I10 Essential (primary) hypertension; R33.9 Retention of urine, unspecified; F32.9 Major depressive disorder, single episode, unspecified; M06.9 Rheumatoid arthritis, unspecified; E87.5 Hyperkalemia; R73.9 Hyperglycemia, unspecified; R79.89 Other specified abnormal findings of blood chemistry; Z90.710 Acquired absence of both cervix and uterus; Z79.52 Long term (current) use of systemic steroids; Z79.899 Other long term (current) drug therapy
CPT/HCPCS: 36415; 36416; 51702; 71045; 71046; 74177; 80048; 80053; 81003; 81015; 82553; 83615; 83735; 84484; 85025; 87449; 87635; 93005; 93010; 94640; C9113; J1650; J1815; J2930; J3475; J3490; J7070; J7512; J7620; J7626; Q9967; S0179; U0003